=== PATIENT | male | born 1965 | race Hispanic/Latino ===

== ENCOUNTER 2020-07-09 09:52 | Emergency (ER) | payer SELFPAY ==
--- NOTE | ~2020-07-09 | XR_ITS ---
EXAMINATION: XR lumbar spine min 4V DATE: 07/09/2020 11:31 INDICATION: Back pain. Fall. TECHNIQUE: 5 views of the lumbar spine were obtained. COMPARISON: None. FINDINGS: Bone alignment is normal. There is mild anterior wedging of T11 and T12 vertebral bodies, l ikely chronic. There is mildly decreased disc height at T12-L1 and L1-L2. There are endplate osteophy jovanna at all levels. There is multilevel mild facet joint osteoarthritis. IMPRESSION: 1. Mild thoracolumbar spondylosis. Reviewed, dictated and finalized at location A.
[2020-07-09 11:00] VITALS: BP 151/95; PULSE 76; RESP 16; TEMP 36.6; O2SAT 98
[2020-07-09 11:23] LABS: Basophils Absolute Auto 0.1 K/mm3 (0.0-0.1); Basophils Percent Auto 0.7 % (0.2-1.2); Eosinophils Percent Auto 11.6 % (0-4.4); Hemoglobin 15.6 g/dL (14.0-18.0); Immature Granulocyte Absolute 0.04 K/mm3 (0.00-0.031); Immature Granulocyte Percent A 0.5 % (0-0.5); Mean Corpuscular HGB Conc 33.9 g/dl (32-36); Mean Corpuscular Hemoglobin 31.1 pg (26-34); Mean Corpuscular Volume 91.6 fl (80-100); Mean Platelet Volume 9.2 fl (7.4-10.4); Monocytes Absolute Auto 0.5 K/mm3 (0.1-0.6); Neutrophils Absolute Auto 4.8 K/mm3 (1.3-6.7); Neutrophils Percent Auto 57.2 % (45.5-73.1); Platelet Count Result 214 k/mm3 (150-375); Red Blood Count 5.02 M/mm3 (4.6-6.20); Red Cell Distribution Width 11.9 % (11.5-14.5); White Blood Count 8.3 K/mm3 (4.5-10.0)
[2020-07-09 11:25] LABS: Add Urine Microscopic? NO; Appearance Urine Clear (Clear); Bilirubin Urine Negative (Negative); Blood Urine Negative (Negative); Color Urine Yellow (Yellow); Glucose Urine UA Negative (Negative); Ketones Urine Negative (Negative); Leukocyte Esterase Ur Negative LEU/UL (Negative); Nitrate Urine Negative (Negative); Protein Urine Negative (Negative); Specific Grav Ur 1.015 (1.001-1.035); Urobilinogen Urine Negative mg/dL (<2.0)
[2020-07-09 11:34] LABS: Alanine Aminotransferase 39 U/L (4-50); Albumin Level 4.7 g/dL (3.5-5.1); Alkaline Phosphatase 96 U/L (38-126); Anion Gap 10 mmol/L (8-16); Aspartate Amino Transferase 32 U/L (17-59); Blood Urea Nitrogen 12 mg/dL (9-20); Calcium 9.7 mg/dL (8.4-10.2); Carbon Dioxide 25 mmol/L (22-30); Chloride 106 mmol/L (98-107); Estimated Glomerular Filt Rate > 60; Glucose 99 mg/dL (75-110); Potassium 4.2 mmol/L (3.4-5.0); Sodium 141 mmol/L (137-145)
[2020-07-09 11:41] LABS: Amphetamine Screen Urine Negative (Negative); Barbiturate Screen Urine Negative (Negative); Benzodiazepines Screen Urine Negative (Negative); Cannabinoid Screen Urine Negative (Negative); Cocaine Screen Urine Negative (Negative); Methadone Screen Urine Negative (Negative); Opiate Screen Urine Negative (Negative); Phencyclidine Screen Urine Negative (Negative)
--- NOTE | 2020-07-09 12:12 | ED.BACK ---
HPI - Back Pain/Injury General Chief Complaint: Back Pain/Injury Stated Complaint: back pain Time Seen by Provider: 07/09/20 10:33 Source: patient Mode of arrival: ambulatory Limitations: language barrier (Marshallese-speaking, translation line used) History of Present Illness HPI Narrative: Patient presents to the emergency department with chief complaint of wanting checked for diabetes, cholesterol issues and evaluation for his back pain that has been present over months. Patient states he occasionally has tingling in his fingertips and his toes. Patient denies fever, chills, nausea, vomiting, diarrhea, abdominal pain, shortness of breath or chest pain. Patient states he also notes stiffness in his back is on discomfort at times with walking. He denies any saddle paresthesias, loss of bowel or bladder function. Related Data Allergies Allergy/AdvReac Type Severity Reaction Status Date / Time No Known Allergies Allergy Verified 07/09/20 12:05 Review of Systems Review of Systems: Narrative: CONSTITUTIONAL: Denies fever, chills, or sweats. EYES: Denies visual changes, redness, or discharge. ENT: Denies rhinorrhea, congestion, sore throat, or otalgia. CARDIOVASCULAR: Denies chest pain, palpitations, or edema. RESPIRATORY: Denies cough or dyspnea. GASTROINTESTINAL: Denies abdominal pain, nausea, vomiting, or diarrhea. GENITOURINARY: Denies dysuria or hematuria. SKIN: Denies rash or itching. MUSCULOSKELETAL: Reports back pain, denies myalgia, or joint pain NEUROLOGIC: Reports intermittent tingling denies headache, numbness, dizziness, or weakness. PSYCHIATRIC: Denies anxiety or depression. Exam Narrative: Exam Narrative: GENERAL: Well-appearing, well-nourished, and in no acute distress. HEAD: Normocephalic, atraumatic. EYES: PERRLA and EOMI. ENT: Nares clear, no rhinorrhea or epistaxis. Mucous membranes moist. Oropharynx without tonsillar hypertrophy exudate or other lesions. Bilateral TMs pearly allen nonbulging NECK: Supple. No adenopathy or masses. No carotid bruits or JVD CHEST: Clear to auscultation. No respiratory distress. No wheezes rales or rhonchi HEART: Regular rate and rhythm. Present peripheral pulses. BACK: No outward signs of injury. Range of motion intact strength with flexion extension. Patient reports some discomfort with flexion. No bony step-offs palpated. EXTREMITIES: Normal range of motion. No edema. SKIN: Warm, dry, no rash. NEURO: No focal deficits. Alert and oriented x3. PSYCH: Normal mood and affect. Course Vital Signs Vital signs: Vital Signs Temperature 98 F 07/09/20 11:00 Pulse Rate 76 07/09/20 11:00 Respiratory Rate 16 07/09/20 11:00 Blood Pressure 151/95 H 07/09/20 11:00 Pulse Oximetry 98 07/09/20 11:00 Temperature 98 F 07/09/20 11:00 Pulse Rate 76 07/09/20 11:00 Respiratory Rate 16 07/09/20 11:00 Blood Pressure 151/95 H 07/09/20 11:00 Pulse Oximetry 98 07/09/20 11:00 MDM - Back Pain/Injury MDM Narrative Medical decision making narrative: Patient lives in [place] but came to our emergency department because he says that the care is faster. Patient has been informed that his blood glucose levels are normal today. Patient is unable to receive cholesterol testing emergency department. I instructed patient of the importance of following up with her primary care provider. Since he lives in [place] I have instructed him of the importance of following up with a primary care provider for full wellness check. Differential Diagnosis Differential diagnosis: Likely lumbar radiculopathy, sciatica, strain of lumbar region, renal colic, pyelonephritis, thoracic back pain, AAA and discitis Lab Data Result diagrams: 07/09/20 11:16 07/09/20 11:16 Labs: Lab Results 07/09/20 07/09/20 07/09/20 Range/Units 11:16 11:16 11:16 WBC 8.3 (4.5-10.0) K/mm3 RBC 5.02 (4.6-6.20) M/mm3 Hgb 15.6 (14.0-18.0) g/dL Hct 46.0 (42
[2020-07-09 12:35] VITALS: BP 139/91; PULSE 78; RESP 16; O2SAT 98
[2020-07-09] MEDS: KETOROLAC (*BKC) 60 MG/2 ML VIAL 30 MG IM (12:35)
== END 2020-07-09 12:45 | disposition home or self-care (01) ==
PROVIDERS: Physician Assistant; Emergency Provider Emergency Medicine
DX: M47.815 Spondylosis without myelopathy or radiculopathy, thoracolumbar region (principal); G62.9 Polyneuropathy, unspecified
CPT/HCPCS: 36415; 72110; 80053; 80307; 81003; 85025; 96372; 99283; J1885

== ENCOUNTER 2022-10-17 09:47 | Emergency (ER) | payer SELFPAY ==
[2022-10-17] VITALS (11 sets, daily range): BP systolic 123–159; BP diastolic 68–85; PULSE 61–84; RESP 13–20; TEMP 36.6–36.8; O2SAT 93–99
--- NOTE | ~2022-10-17 | US_ITS ---
EXAMINATION: US venous doppler [facility] DATE: 10/17/2022 15:43 INDICATION: Bilateral lower limb swelling TECHNIQUE: Rojas scale images without and with compression and Doppler images of the bilateral lower e xtremity veins were obtained. COMPARISON: None FINDINGS: The right common femoral vein, profunda femoral vein, femoral vein, popliteal vein, peroneal trunk, p osterior tibial veins, and greater saphenous vein are patent. The left common femoral vein, profunda femoral vein, femoral vein, popliteal vein, peroneal trunk, po sterior tibial veins, and greater saphenous vein are patent. IMPRESSION: 1. Patent bilateral lower extremity veins. No evidence of deep venous thrombosis. Reviewed, dictated and finalized at location B. ERS COMPENSATION MANAGER IMPRESSION: 1. Patent bilateral lower extremity veins. No evidence of deep venous thrombosi s.
--- NOTE | ~2022-10-17 | XR_ITS ---
Clinical Indication: Chest pain PA and lateral views of the chest: Comparison: None Findings: The lungs are clear, without evidence of focal consolidation or pleural effusion. Cardiome diastinal silhouette is within normal limits. Bones and soft tissues are unremarkable. Impression: Normal chest. Reviewed, dictated and finalized at [facility] [place]. ERIES SPECIALIST Impression: Normal chest.
--- NOTE | 2022-10-17 09:48 | ECG_ITS ---
Measurements Intervals Rudolph Rate: 76 P: 76 [place]: 163 QRS: 56 QRSD: 97 T: 52 QT: 367 QTc: 413 Interpretive Statements SINUS RHYTHM NORMAL ELECTROCARDIOGRAM NO PREVIOUS ECG AVAILABLE FOR COMPARISON Electronically Signed On 10-17-2022 14:58:29 TODDLER CAREGIVER by Reji Khan M.D.
--- NOTE | 2022-10-17 10:17 | PC.NURSE ---
I documented the EKG but did not obtain it.
[2022-10-17 10:29] LABS: Prothrombin Time 12.5 Seconds (11.1-14.7)
[2022-10-17 10:30] LABS: Partial Thromboplastin Time 26.6 SECONDS (22.3-36.8)
[2022-10-17 10:36] LABS: Alanine Aminotransferase 48 U/L (6-50); Albumin Level 4.8 g/dL (3.5-5.1); Alkaline Phosphatase 108 U/L (38-126); Anion Gap 7 mmol/L (8-16); Aspartate Amino Transferase 32 U/L (17-59); Blood Urea Nitrogen 17 mg/dL (9-20); Calcium 9.1 mg/dL (8.4-10.2); Carbon Dioxide 26 mmol/L (22-30); Chloride 102 mmol/L (98-107); Estimated CRCL calculation 81 ml/min; Estimated Glomerular Filt Rate > 60; Glucose 111 mg/dL (65-110); Lipase 84 U/L (23-300); Potassium 3.7 mmol/L (3.4-5.0); Sodium 135 mmol/L (137-145)
[2022-10-17 10:47] LABS: Troponin I < 0.012 ng/mL (0.000-0.034)
[2022-10-17 10:49] LABS: Basophils Absolute Auto 0.1 K/mm3 (0.0-0.1); Basophils Percent Auto 0.6 % (0.2-1.2); Eosinophils Percent Auto 11.7 % (0-4.4); Hematocrit 45.4 % (42.0-52.0); Hemoglobin 15.2 g/dL (14.0-18.0); Immature Granulocyte Absolute 0.03 K/mm3 (0.00-0.031); Immature Granulocyte Percent A 0.4 % (0-0.5); Lymphocytes Absolute Auto 1.92 K/mm3 (0.9-3.2); Lymphocytes Percent Auto 22.4 % (18.3-44.2); Mean Corpuscular HGB Conc 33.5 g/dl (32-36); Mean Corpuscular Hemoglobin 30.8 pg (26-34); Mean Corpuscular Volume 92.1 fl (80-100); Mean Platelet Volume 9.5 fl (7.4-10.4); Monocytes Absolute Auto 0.5 K/mm3 (0.1-0.6); Neutrophils Absolute Auto 5.1 K/mm3 (1.3-6.7); Neutrophils Percent Auto 58.9 % (45.5-73.1); Platelet Count Result 228 k/mm3 (150-375); Red Blood Count 4.93 M/mm3 (4.6-6.20); White Blood Count 8.6 K/mm3 (4.5-10.0)
[2022-10-17 13:54] LABS: Troponin I < 0.012 ng/mL (0.000-0.034)
--- NOTE | 2022-10-17 16:59 | ED.EXTPRO ---
HPI - Extremity Problem General Chief complaint: Extremity Problem,Nontraumatic Stated complaint: bilateral leg pain Time Seen by Provider: 10/17/22 13:51 History of Present Illness HPI Narrative: Patient is a 56-year-old male who presents ER with bilateral lower extremity itching. Ongoing for 2 weeks. Associated with some mild swelling. Itching occurs from the knees down to the feet. No history of diabetes or neuropathy. He does have a history of [place] in the past year and is currently on Plavix. Denies fevers or chills or sweats. No chest pain or chest pressure. No hemoptysis. Patient has no rash. No change in laundry detergent or soaps. Related Data Allergies Allergy/AdvReac Type Severity Reaction Status Date / Time No Known Allergies Allergy Verified 07/09/20 12:05 Review of Systems Review of Systems: All systems reviewed & are unremarkable except as noted in HPI and below Constitutional: Constitutional: Denies chills, Denies fatigue and Denies fever(s) ENT: Denies nasal congestion and Denies sore throat Cardiovascular: Cardiovascular: Denies chest pain, Denies rapid heart rate and Denies radiating jaw, neck or arm pain Integumentary/Breasts: Skin/Breast: Reports pruritus, Denies erythema and Denies rash Comments: Leg edema Neurologic: Denies focal weakness and Denies numbness Comments: Burning of the legs. PMFSH Past Medical History Medical History (Updated 10/17/22 @ 19:15 by Siva Lux MD) Coronary artery disease Hyperlipidemia Hypertension Surgical History Surgical History (Updated 10/17/22 @ 19:15 by Siva Lux MD) History of percutaneous coronary intervention Exam Narrative: GENERAL: Well-appearing, well-nourished, and in no acute distress. HEAD: Normocephalic, atraumatic. ENT: Mucous membranes moist. CHEST: Clear to auscultation. No respiratory distress. HEART: Regular rate and rhythm. Normal peripheral pulses. ABDOMEN: Soft, nontender, nondistended. EXTREMITIES: Normal range of motion. Trace edema. SKIN: Warm, dry, no rash. NEURO: Alert and oriented x3. PSYCH: Normal mood and affect. Course Course Emergency Course: Patient resting comfortably. Informed of results via interpreter and translator. No acute issue at this time. May have neuropathy but given no diabetes would like him to try a course of steroids given the pruritus and recommend he follow-up with his PCP. Patient verbalized understanding this Vital Signs Vital signs: Vital Signs Temperature 97.8 F 10/17/22 09:53 Pulse Rate 71 10/17/22 09:53 Respiratory Rate 20 10/17/22 09:53 Blood Pressure 145/68 H 10/17/22 09:53 Pulse Oximetry 99 10/17/22 09:53 Oxygen Delivery Room Air 10/17/22 09:53 Temperature 98.3 F 10/17/22 13:15 Pulse Rate 84 10/17/22 18:43 Respiratory Rate 17 10/17/22 18:43 Blood Pressure 123/77 10/17/22 18:43 Pulse Oximetry 99 10/17/22 18:43 Oxygen Delivery Room Air 10/17/22 13:15 MDM - Extremity (Nontraumatic) Lab Data 10/17/22 10:00 10/17/22 10:00 Labs: Lab Results 10/17/22 10/17/22 10/17/22 Range/Units 10:00 10:00 10:00 WBC 8.6 (4.5-10.0) K/mm3 RBC 4.93 (4.6-6.20) M/mm3 Hgb 15.2 (14.0-18.0) g/dL Hct 45.4 (42.0-52.0) % MCV 92.1 (80-100) fl MCH 30.8 (26-34) pg MCHC 33.5 (32-36) g/dl RDW 12.0 (11.5-14.5) % Plt Count 228 (150-375) k/mm3 MPV 9.5 (7.4-10.4) fl Immature Gran % (Auto) 0.4 (0-0.5) % Neut % (Auto) 58.9 (45.5-73.1) % Lymph % (Auto) 22.4 (18.3-44.2) % Mcpherson % (Auto) 6.0 (2.6-8.5) % Eos % (Auto) 11.7 H (0-4.4) % Baso % (Auto) 0.6 (0.2-1.2) % Lymph # (Auto) 1.92 (0.9-3.2) K/mm3 Mcpherson # (Auto) 0.5 (0.1-0.6) K/mm3 Eos # (Auto) 1.0 H (0-0.3) K/mm3 Baso # (Auto) 0.1 (0.0-0.1) K/mm3 Abs Immat Gran (auto) 0.03 (0.00-0.031) K/mm3 Absolute Neuts (auto) 5.1 (1.3-6.7) K/mm3 Absolute Nucleated RBC
[2022-10-17 17:23] LABS: Troponin I < 0.012 ng/mL (0.000-0.034)
== END 2022-10-17 18:44 | disposition home or self-care (01) ==
PROVIDERS: Emergency Provider Emergency Medicine
DX: L29.9 Pruritus, unspecified (principal); I25.10 Atherosclerotic heart disease of native coronary artery without angina pectoris; I10 Essential (primary) hypertension; I25.2 Old myocardial infarction; E78.5 Hyperlipidemia, unspecified; Z79.02 Long term (current) use of antithrombotics/antiplatelets
CPT/HCPCS: 36415; 71046; 80053; 83690; 84484; 85025; 85610; 85730; 93005; 93970; 99284

== ENCOUNTER 2024-09-04 10:50 | Emergency (ER) | payer SELFPAY ==
--- NOTE | ~2024-09-04 | XR_ITS ---
EXAMINATION: XR foot RT 2V DATE: 09/04/2024 11:44 INDICATION: Gout. TECHNIQUE: 2 views of right foot were obtained. COMPARISON: None. FINDINGS: Alignment is normal. No fracture. There is mild osteoarthritis of first metatarsophalangeal joint and some of the midfoot joints. There are enthesophytes at the posterior and plantar aspects o f calcaneal tuberosity. IMPRESSION: 1. No specific evidence of gout. 2. Mild polyarticular osteoarthritis. Reviewed, dictated and finalized at location A. TRUCKER
[2024-09-04 11:03] VITALS: BP 162/83; PULSE 109; RESP 16; TEMP 36.4; O2SAT 99
[2024-09-04] MEDS: predniSONE 20 MG TABLET 60 MG PO (11:48)
[2024-09-04] MEDS: ACETAMINOPHEN 500 MG TABLET 1000 MG PO (11:49)
[2024-09-04] MEDS: KETOROLAC 30 MG/ML VIAL (*BKC) IM (11:49)
--- NOTE | 2024-09-04 21:52 | ED.LOWEXIN ---
HPI - Extremity Injury (Lower) General Chief Complaint: Extremity Injury, Lower Stated Complaint: pain R leg Time Seen by Provider: 09/04/24 11:18 History of Present Illness HPI Narrative: 58-year-old primarily [place] Citizen-speaking male presenting to the emergency depart for evaluation of right foot pain. Patient states he has a history of gout, arthritis and he has worsening pain in the morning that gets progressively worse throughout the day with use. He states it feels very similar to his previous gout attack which he had several years ago. Does not take any medications or prophylactic medications, his previous gout flare resolved without intervention. He is complaining of right foot pain for last 10-15 days, no swelling in the digits, no restricted range of motion, some warmth to the area around the right lower extremity near the ankle but no overlying skin changes such as cellulitis. Translation services were used throughout the interpretation both during initial encounter and during discharge. Related Data Allergies Allergy/AdvReac Type Severity Reaction Status Date / Time No Known Allergies Allergy Verified 09/04/24 11:12 Review of Systems Review of Systems: [facility] Past Medical History Medical History Coronary artery disease Hyperlipidemia Hypertension Surgical History Surgical History History of percutaneous coronary intervention Exam Narrative: GENERAL: [Well-appearing, well-nourished, and in no acute distress.] HEAD: [Normocephalic, atraumatic.] EYES: [PERRLA and EOMI.] ENT: Nares clear, no rhinorrhea or epistaxis. Mucous membranes moist. NECK: Supple. CHEST: [Clear to auscultation. No respiratory distress.] HEART: [Regular rate and rhythm]. No murmur heard. [Normal peripheral pulses.] ABDOMEN: [Soft, nondistended], [nontender], [No rigidity or guarding] EXTREMITIES: Some tenderness and warmth over the right lower extremity near the medial malleolus and metatarsophalangeal joints of the 1st and 2nd digit. No overlying skin changes, no cellulitis, no restricted range of motion. No crepitus or significant pain with palpation. SKIN: Warm, dry, no rash. NEURO: [No focal deficits]. Alert and oriented [x3.] PSYCH: [Normal mood and affect.] Course Vital Signs Vital signs: Vital Signs Temperature 36.4 C 09/04/24 11:03 Pulse Rate 109 H 09/04/24 11:03 Respiratory Rate 16 09/04/24 11:03 Blood Pressure 162/83 H 09/04/24 11:03 Pulse Oximetry 99 09/04/24 11:03 Oxygen Delivery Room Air 09/04/24 11:03 Temperature 36.4 C 09/04/24 11:03 Pulse Rate 109 H 09/04/24 11:03 Respiratory Rate 16 09/04/24 11:03 Blood Pressure 162/83 H 09/04/24 11:03 Pulse Oximetry 99 09/04/24 11:03 Oxygen Delivery Room Air 09/04/24 11:03 MDM - Extremity Injury (Lower) MDM Narrative Medical decision making narrative: 58-year-old male with history of gout presenting to the emergency department for evaluation of right foot pain. He has some pain and tenderness over the medial malleolus and metatarsophalangeal joints of the 1st and 2nd digit. Some redness and warmth but no overlying skin changes consistent with cellulitis. No significant tenderness with palpation. Patient's tells me this feels very similar to his previous gout flare that did not requiring treatments before. Does not take any medications presently. Was otherwise in his normal state of health. X-ray was obtained and he was given intramuscular Toradol, oral prednisone and Tylenol. Patient was re-evaluated had significant improvement in his pain. 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 Given patient's clinical improvement and improvement in pain I believe he can be safely discharged home at this time. He was given a prednisone burst for the next several days and instructed to follow-up with his regular primary care provider or return with any new or worsening concerns. Medical Records Attestation: I reviewed the patient's medical records. Lab Data Attestation: I reviewed the patient's lab results. Imaging Data Attestation: I personally reviewed and interpreted this imaging study as follows: My impression: Impressions Foot X-Ray 09/04/24 11:45 IMPRESSION: 1. No specific evidence of gout. 2. Mild polyarticular osteoarthritis. Discharge Plan Discharge Clinical Impression: Polyarticular arthritis, Gout, Foot pain, right Patient Disposition: Home, Self-Care Condition: Stable Instructions: Antibiotic Form, Gout (ED), Arthritis (ED) Additional Instructions: steroids and nsaids for pain. return with any new or worsening concerns otherwise follow-up with regular primary care provider on outpatient basis. Patient Language: [place] Citizen Prescriptions: New prednisone 50 mg tablet 50 mg PO DAILY 5 Days Qty: 5 0RF naproxen 500 mg tablet 500 mg PO BID PRN (Reason: pain) Qty: 20 0RF No Action prednisone 50 mg tablet 50 mg PO DAILY Qty: 7 0RF naproxen 500 mg tablet 500 mg PO BID PRN (Reason: pain) Qty: 20 0RF Follow-up/Referrals: PHYSICIAN,FAMILY PRACTICE NURSE PRACTITIONER [Primary Care Provider] - Time of Disposition: 12:37
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
--- OUTSIDE RECORDS SUMMARY | 2024-09-11 14:01 | XMS_ITS | Referral Summary ---
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 This disclosure is being madepursuant to the Care Everywhere program and may not contain all information available regarding this patient. 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 No 12/07/2021 Is person blind or have serious difficulty seein g? No 12/07/2021 Does person have serious dif ficulty walking/climbing stairs? No 12/07/2021 Does person have difficulty dressing/bathing? No 12/07/2021 Does person have difficulty doing errands alone? No 12/07/2021 Cognitive Status Response Date of Assessm ent Does person have difficulty concentrating/remembering/making decisions? No 12/07/2021 Plan of Treatment Not on file Medical Devices Implanted Type Area K 9 [employer] Device Identifier Shelf Expiration Date Model / Serial / Lot Sys Cor Stent Xienceskpt 3.50mm 15mm Rap Implanted:Qty: 1 on 12/09/2021 by Olman Matthews MD at [facility] Coronary Stent Left: Heart [employer] 12/19/2022 [id number] Description:Mid Lad. Procedures Procedure Name Priority Date/Time Associated Diagnosis Comments COMPREHENSIVE METABOLIC PANEL STAT 01/21/2022 11:10 PM CDT from Last 3 Months or Most Recently Relevant to Health Maintenance Results * (ABNORMAL) COMPREHENSIVE METABOLIC PANEL (01/21/2022 11:10 PM CDT) BUN 26 7 - 26 mg/dL 01/21/2022 11:48 PM CDT [facility] Creatinine 1.11 0.71 - 1.16 mg/dL 01/21/2022 11:48 PM CDT [facility] Sodium 140 136 - 145 mmol/L 01/21/2022 11:48 PM CDT [facility] Potassium 3.4(L) 3.5 - 4.5 mmol/L 01/21/2022 11:48 PM CDT [facility] Chloride 104 98 - 107 mmol/L 01/21/2022 11:48 PM CDT [facility] CO2 21(L) 22 - 29 mmol/L 01/21/2022 11:48 PM [facility] Glucose 119(H) 70 - 115 mg/dL 01/21/2022 11:48 PM [facility] Calcium 9.0 8.4 - 10.2 mg/dL 01/21/2022 11:48 PM [facility] Protein Total 7.8 6.0 - 8.3 g/dL 01/21/2022 11:48 PM [facility] Albumin 4.0 3.4 - 5.0 g/dL 01/21/2022 11:48 PM [facility] Bilirubin Total 0.6 0.2 - 1.2 mg/dL 01/21/2022 11:48 PM [facility] Alkaline Phosphatase 190(H) 40 - 150 U/L 01/21/2022 11:48 PM [facility] ALT 68(H) 5 - 55 U/L 01/21/2022 11:48 PM [facility] AST 35(H) 5 - 34 U/L 01/21/2022 11:48 PM [facility] Anion Gap 18 8 - 18 01/21/2022 11:48 PM [facility] BUN/Creatinine Ratio 23 7 - 23 01/21/2022 11:48 PM [facility] Osmolality Calculated 296 270 - 300 mOsm/kg 01/21/2022 11:48 PM [facility] Albumin/Globulin Ratio 1.1 1.1 - 2.3 01/21/2022 11:48 PM [facility] eGFR by CKD-EPI 78(L) >=90 mL/min/1.7 3 m2 01/21/2022 11:48 PM [facility] Blood BLOOD SPECIMEN / Unknown Venipuncture / Unknown 01/21/2022 11:10 PM T 01/21/2022 11:17 PM [facility] Mihir Davalos PA-C LAB - CHEMISTRY [facility] [address] [place] [address], [facility] [phone] from Last 3 Months or Most Recently Relevant to Health Maintenance Advance Directives * Full Code (Latest Code Status on File) Date Activated Date Inactivated Comments 12/07/2021 2:19 PM 12/10/2021 6:03 PM
--- OUTSIDE RECORDS SUMMARY | 2024-09-11 14:01 | XMS_ITS | Encounter Summary ---
Author Organization [facility] Address [address] [place] [address] Care Team Providers Care Camp Head Counselor Name Role Phone Unavailable Primary Care Provider Unavailabl e Reason for Visit * Reason Comments Palpitations Pt presents to ED wi th chest pain, and chills. Pt recently had a stent placed. Denies any other family members with illness. Pt has left sided chest pain and he feels like his BP is elevated. Encounter Details Date Type Department Care Team (Late st Contact Info) Description 01/22/2022 1:00 AM CDT - 01/22/2022 4:29 AM T Emergency [facility] EMERGENCY DEPARTMENT [address] [place] [address] Reinaldo Sylvester MD [address] [place] [address] Chest pain, unspecified type; Palpitations; Hypokalemia Discharge Disposition: Home or Self Care Social History Tobacco Use Types Packs/Day Years Used Date Smoking Tobacco: Never Smokeless Tobacco: Never Alcohol Use Standard Drinks/Week Comments Yes 5.8 [...] on file Sexual Orientation Not on file documented as of this encounter Last Filed Vital Signs Vital Sign Reading Time Taken Comments Blood Pressure 169/85 01/21/2022 10:47 PM CDT Pulse 108 01/21/2022 10:47 PM CDT Temperature 36.6 ??C (97.8 ??F) 01/21/2022 10:47 PM C DT Respiratory Rate 18 01/21/2022 10:47 PM CDT Oxygen Saturation 98% 01/21/2022 10:47 PM CDT Inhaled Oxygen Concentration - - Weight 102.1 kg (225 lb) 01/21/2022 10:47 PM CDT Height 167.6 cm (5' 6 ) 01/21/2022 10:47 PM CDT Body Mass Index 36.32 01/21/2022 10:47 PM CDT documented in this encounter Functional Status Functional Status Response Date of [...] person have difficulty concentrating/remembering/making decisions? No 12/07/2021 documented as of this encounter Discharge Instructions * Attachments The following attachments cannot be sent through Care Everywhere. * Chest Pain (AfterCare(R) Instructions(ER/ED)) (Panamanian) documented in this encounter Medications at Time of Discharge Medication Sig Dispensed Refills Start Date End Date acetaminophen (TYLENOL) 325 MG tablet Take 1 (one) tablet by mouth every 6 hours as needed Maximum allowable Acetaminophen amount = 4 Grams (4000 mg) / 24 hours. 12/10/2021 aspirin (ASPIRIN) 81 MG chew tablet Take 1 (one) tablet by mouth once daily 30 tablet 3 12/11/2021 ATORVASTATIN CALCIUM PO HYDROcodone-acetamin ophen (NORCO) 5-325 MG tablet Take 1 (one) tablet by mouth every 6 hours as needed for Pain 10 tablet 12/15/2021 lisinopril-hydroCHLO ROthiazide (Prinzide; Zestoretic) 10-12.5 MG tablet Take 1 (one) tablet by mouth once daily 11/29/2021 nitroGLYCERIN (NITROSTAT) 0.4 MG tablet Dissolve 1 (one) tablet under the tongue every 5 minutes as needed for Angina (Chest pain) 10 tablet 3 12/10/2021 omeprazole (PRILOSEC) 10 MG capsule Take by mouth daily before breakfast amLODIPine (NORVASC) 10 MG tabletIndications:Hy pertension Take 1 (one) tablet by mouth once daily Reasons: High Blood Pressure Disorder 30 tablet 04/30/2021 07/18/2022 clopidogrel (PLAVIX) 75 MG tablet Take 1 (one) tablet by mouth once daily 30 tablet 5 01/22/2022 07/21/2022 lisinopril (PRINIVIL; ZESTRIL) 20 MG tablet Take by mouth once daily 07/18/2022 metoprolol succinate XL 24hr (TOPROL XL) 25 MG tablet Take 1 (one) tablet by mouth once daily 30 tablet 3 01/22/2022 07/18/2022 documented as of this encounter ED Notes * Meliza Ron RN - 01/22/2022 4:27 AM CDT Discharge instructions reviewed with patient. Patient verbalized understanding and denies any questions at this time. Patient ambulated out of the ED with steady gait and all belongings. * Reinaldo Sylvester MD - 01/22/2022 1:04 AM CDT Emergency Medicine Attending Note Interval History : Chief Complaint Patient presents with ??? Palpitations Pt presents to ED with chest pain, and chills. Pt recently had a stent placed. Denies any other family members with illness. Pt has left sided chest pain and he feels like his BP is elevated. Michael Grey is a 56 year old male with HTN, HLD, NSTEMI s/p proximal LAD PCI 12/10/2021 GERD [facility] who presents to the ED for evaluation of chest pain that began approximately 4 hours prior to arrival. The patient describes his symptoms as chest pressure, presyncope, felt that his blood p ressure was elevated. The pain was on the left side, stabbing, 3/10 but pain has now gone away. Symptoms began at rest. Symptoms are improved with time and worsened with nothing. Associated symptoms include as above. Patient has never had these symptoms before. Patient denies SOB, Back pain, Abd pain, N/V had these symptoms before. Patient is unsure is similar to his pain with prior NSTEMI. Past Medical History: Diagnosis Date ??? GERD (gastroesophageal reflux disease) ??? HTN (hypertension) ??? Hyperlipidemia No past surgical history on file. Social History Socioeconomic History ??? Marital status: Single Spouse name: Not on file ??? Number of children: Not on file ??? Years of education: Not on file ??? Highest education level: Not on file Occupational History ??? Not on file Tobacco Use ??? Smoking status: Never Smoker ??? Smokeless tobacco: Never Used Vaping Use ??? Vaping Use: Never used Substance and Sexual Activity ??? Alcohol use: Yes Alcohol/week: 5.8 standard drinks Comment: 1 beer daily ??? Drug use: No ??? Sexual activity: Not on file Other Topics Concern ??? Not on file Social History Narrative Merged History Encounter Social Determinants of Health Financial Resource Strain: Not on file Food Insecurity: Not on file Transportation Needs: Not on file Physical Activity: Not on file Stress: Not on file Social Connections: Not on file Intimate Partner Violence: Not on file Housing Stability: Not on file No Known Allergies Review of Systems: (+) positive Review of Systems Constitutional: Negative for chills, diaphoresis and fever. HENT: Negative for congestion and nosebleeds. Eyes: Negative for photophobia and pain. Respiratory: Negative for cough, hemoptysis, sputum production, shortness of breath, wheezing and stridor. Cardiovascular: Positive for chest pain and palpitations. Negative for orthopnea and leg swelling. Gastrointestinal: Negative for abdominal pain, constipation, diarrhea, nausea and vomiting. Genitourinary: Negative for dysuria and frequency. Musculoskeletal: Negative for back pain and myalgias. Skin: Negative for rash. Neurological: Positive for dizziness. Negative for sensory change, focal weakness, loss of consciousness, weakness and headaches. Physical Exam Vitals: 01/21/22 2247 BP: 169/85 Pulse: 108 Resp: 18 Temp: 97.8 ??F (36.6 ??C) SpO2: 98% Weight: 102.1 kg (225 lb) Height: 1.676 m (5' 6 ) Physical Exam Constitutional: General: He is not in acute distress. Appearance: He is not ill-appearing, toxic-appearing or diaphoretic. HENT: Head: Normocephalic and atraumatic. Nose: Nose normal. Mouth/Throat: Mouth: Mucous membranes are moist. Pharynx: Oropharynx is clear. Eyes: Pupils: Pupils are equal, round, and reactive to light. Cardiovascular: Rate and Rhythm: Regular rhythm. Tachycardia present. Pulses: Normal pulses. Pulmonary: Effort: Pulmonary effort is normal. No respiratory distress. Breath sounds: Normal breath sounds. Abdominal: General: Abdomen is flat. Bowel sounds are normal. There is no distension. Palpations: Abdomen is soft. Tenderness: There is no abdominal tenderness. There is no guarding. Musculoskeletal: General: No tenderness. Normal range of motion. Cervical back: Normal range of motion and neck supple. Skin: General: Skin is warm and dry. Neurological: General: No focal deficit present. Mental Status: He is alert and oriented to person, place, and time. Mental status is at baseline. Psychiatric: Mood and Affect: Mood normal. Behavior: Behavior normal. Medical Decision Making: Problem List: 1. Chest Pain - Ddx: ACS vs MSK pain vs PNA vs PTX vs other - PLAN: Labwork, EKG, CXR, ASA see below for further orders/plan. Orders Placed This Encounter ??? XR CHEST PA AND LATERAL ??? CBC W AUTO DIFFERENTIAL ??? COMPREHENSIVE METABOLIC PANEL ??? TROPONIN I ??? TROPONIN I ??? EKG 12-LEAD ??? aspirin tablet 325 mg ??? nitroGLYCERIN (Nitrostat) tablet 0.4 mg Data Review: (All Labs/Imaging/ECG, other diagnostics independently interpreted by me.) - MONITORING: The patient's Display Carver Rhythm was interpreted by me. The parts control clerk showed Sinus tachycardia. The patient's Oxygen Saturation Monitor was interpreted by me. The reading was 98%. The patient wason room air at the time of the reading. This is interpreted as normal. - ECG: Interpreted by me: Date: 01/22/22 Time: 2258 R&R: Sinus tachycardia with a ventricular rate of 104 bpm Additional findings: No change from EKG performed 12/14/2021 - LABS: Labs Reviewed CBC W AUTO DIFFERENTIAL - Abnormal; Notable for the following components: Result Value WBC 12.2 (*) RBC 3.97 (*) MPV 9.0 (*) Eosinophils % 8.1 (*) Neutrophils Absolute 7.4 (*) Eosinophils Absolute 0.99 (*) All other components within normal limits COMPREHENSIVE METABOLIC PANEL - Abnormal; Notable for the following components: Potassium 3.4 (*) CO2 21 (*) Glucose 119 (*) Alkaline Phosphatase 190 (*) ALT 68 (*) AST 35 (*) eGFR by CKD-EPI 78 (*) All other components within normal limits TROPONIN I - Normal TROPONIN I - IMAGING: XR CHEST PA AND LATERAL (Results Pending) No results found. - MEDS: Medications aspirin tablet 325 mg (has no administration in time range) nitroGLYCERIN (Nitrostat) tablet 0.4 mg (has no administration in time range) ED COURSE 2320: Reviewed labwork, EKG, CXR. EKG unchanged from prior, Labwork shows no abnormalities concerning for acute cardiac event. CXR does not show acute pulmonary process. Will check repeat troponin aschest pain began 3 hours ago. 0158: Repeat troponin in not elevated. Patient's pain hs improved without intervention. Patient with recent Cardiac cath showing severe LAD disease s/p stenting, other coronary arteries without severe disease. I have low suspicion for stent occlusion as symptoms have resolved and patient reports medication compliance, will discharge patient with outpatient follow up. DISCHARGE I have given the patient instructions regarding their diagnosis, expectations, follow up, and return precautions. I explained to the patient that emergent conditions may arise that are not yet detectable on exam or testing, and to return to the ER for new, worsening, or any persistent conditions. I've explained the importance of following up with the patient's doctor (or the referral physician) as instructed. The patient verbalized understanding of the discharge instructions and has no further questions at discharge. I also personally reviewed the patient's discharge instructions including discussion of their diagnosis, follow-up information, Medications, etc. All questions answered regarding discharge paperwork. This patient was evaluated during the COVID-19 pandemic. Orders and Medicine administered during this encounter: Orders Placed This Encounter ??? XR CHEST PA AND LATERAL ??? CBC W AUTO DIFFERENTIAL ??? COMPREHENSIVE METABOLIC PANEL ??? TROPONIN I ??? TROPONIN I ??? EKG 12-LEAD ??? aspirin tablet 325 mg ??? nitroGLYCERIN (Nitrostat) tablet 0.4 mg Medications aspirin tablet 325 mg (has no administration in time range) nitroGLYCERIN (Nitrostat) tablet 0.4 mg (has no administration in time range) Clinical Impression: 1. Chest pain, unspecified type Disposition: Discharge I, Dr. Sylvester, personally performed the services described in this documentation. All medical record entries made by the scribe were at my direction and in my presence. I have reviewed the chart and agree that the record reflects my personal performance and is accurate and complete. * Jill Gaspar RN - 01/22/2022 1:00 AM CDT Bed: 21 Expected date: Expected time: Means of arrival: Comments: Sae Ware documented in this encounter Plan of Treatment Not on file documented as of this encounter Procedures Procedure Name Priority Date/Time Associated Diagnosis Comments CARDIAC EKG ORDER 01/23/2022 11: 36 AM CDT TROPONIN I Timed 01/22/2022 1:58 AM CDT XR CHEST 2VW STAT 01/21/2022 11:21 PM CDT Chest pain, unspecified type TROPONIN I STAT 01/21/2022 11:10 PM CDT CBC W AUTO DIFFERENTIAL STAT 01/21/2022 11:10 PM CDT COMPREHENSIVE METABOLIC PANEL STAT 01/21/2022 11:10 PM CDT EKG 12-LEAD Routine 01/21/2022 10:59 PM CDT Chest pain, unspecified type documented in this encounter Results * CARDIAC EKG ORDER (01/23/2022 11:36 AM CDT) Narrative 01/23/2022 11:36 AM CDT Ordered by an unspecified provider. Scanned Document CARDIAC SERVICES ORD ERABLES * TROPONIN I (01/22/2022 1:58 AM CDT) Troponin I <0.010 <0.032 ng/mL 01/22/2022 2:44 AM CDT [facility] Blood BLOOD SPECIMEN / Unknown Venipuncture / Unknown 01/22/2022 1:58 AM CDT 01/22/2022 2:01 AM CDT Mihir Davalos PA-C LAB - CHEMISTRY ORDE JUAQUIN [address] [address], [facility] [phone] * XR CHEST PA AND LATERAL (01/21/2022 11:21 PM CDT) Anatomical Region Laterality Modality Chest Radiographic Vickie ging 01/22/2022 9:25 AM CDT Impressions 01/22/2022 11:53 AM CDT IMPRESSION: 1.No acute pulmonary process is seen. Report drafted by Juarez Sharpe M.D. (resident) This report was approved ??by Juarez Sharpe ?? on 01/22/2022 10:09 AM . I, Dr. Dr. TAYLOR LANTIGUA MD have personally reviewed and interpreted this examination/study. This report was electronically signed by Dr. TAYLOR LANTIGUA MD ??on 01/22/2022 11:53 AM . Narrative 01/22/2022 11:53 AM CDT EXAMINATION: XR CHEST 2VW HISTORY: R07.9: Chest pain, unspecified type COMPARISON: Chest X-ray 12/07/2021. FINDINGS: No focal consolidation, pleural effusion, or pneumothorax is seen. The cardiomediastinal silhouette is normal. No acute fractures are seen. Procedure Note Taylor Lantigua MD - 01/22/2022 EXAMINATION: XR CHEST 2VW HISTORY: R07.9: Chest pain, unspecified type COMPARISON: Chest X-ray 12/07/2021. FINDINGS: No focal consolidation, pleural effusion, or pneumothorax is seen. The cardiomediastinal silhouette is normal. No acute fractures are seen. IMPRESSION: 1.No acute pulmonary process is seen. Report drafted by Juarez Sharpe M.D. (resident) This report was approved by Juarez Sharpe on 0:09 AM . I, Dr. Dr. TAYLOR LANTIGUA MD have personally reviewed and interpretedthis examination/study. This report was electronically signed by Dr. TAYLOR LANTIGUA MD on 01/22/2022 11:53 AM . Mihir Davalos PA-C DIAGNOSTIC IMAGING O RDERABLES * TROPONIN I (01/21/2022 11:10 PM CDT) [facility] Troponin I <0.010 <0.032 ng/mL 01/21/2022 11:[address] [facility] Blood BLOOD SPECIMEN / Unknown Venipuncture / Unknown 01/21/2022 11:10 PM CDT 01/21/2022 11:17 PM CDT Mihir Davalos PA-C LAB - CHEMISTRY [facility]ER RE[facility] Organization Address City/State/ZIP Co de Phone Number [address] [address], [facility] [phone] * (ABNORMAL) COMPREHENSIVE METABOLIC PANEL (01/21/2022 11:10 PM CDT) Pathologist [facility] BUN 26 7 - 26 mg/dL 01/21/2022 11:48 PM [facility] Creatinine 1.11 0.71 - 1.16 mg/dL 01/21/2022 11:48 PM [facility] Sodium 140 136 - 145 mmol/L 01/21/2022 11:48 PM [facility] Potassium 3.4(L) 3.5 - 4.5 mmol/L 01/21/2022 11:48 PM [facility] Chloride 104 98 - 107 mmol/L 01/21/2022 11:48 PM [facility] CO2 21(L) 22 - 29 mmol/L 01/21/2022 11:48 PM [facility] Glucose 119(H) 70 - 115 mg/dL 01/21/2022 11:48 PM [facility] Calcium 9.0 8.4 - 10.2 mg/dL 01/21/2022 11:48 PM [facility] Protein Total 7.8 6.0 - 8.3 g/dL 01/21/2022 11:48 PM [facility] Albumin 4.0 3.4 - 5.0 g/dL 01/21/2022 11:48 PM [facility] Bilirubin Total 0.6 0.2 - 1.2 mg/dL 01/21/2022 11:48 PM [facility] Alkaline Phosphatase 190(H) 40 - 150 U/L 01/21/2022 11:48 PM [facility] ALT 68(H) 5 - 55 U/L 01/21/2022 11:48 PM [facility] AST 35(H) 5 - 34 U/L 01/21/2022 11:48 PM [facility] Anion Gap 18 8 - 18 01/21/2022 11:48 PM [facility] BUN/Creatinine Ratio 23 7 - 23 01/21/2022 11:48 PM [facility] Osmolality Calculated 296 270 - 300 mOsm/kg 01/21/2022 11:48 PM [facility] Albumin/Globulin Ratio 1.1 1.1 - 2.3 01/21/2022 11:48 PM [facility] eGFR by CKD-EPI 78(L) >=90 mL/min/1.7 3 m2 01/21/2022 11:48 PM [facility] Blood BLOOD SPECIMEN / Unknown Venipuncture / Unknown 01/21/2022 11:10 PM CDT 01/21/2022 11:17 PM CDT Mihir Davalos PA-C LAB - CHEMISTRY ASHER RE[facility] [address] [place] [address], [facility] [phone] * (ABNORMAL) CBC W AUTO DIFFERENTIAL (01/21/2022 11:10 PM CDT) WBC 12.2(H) 3.5 - 10.5 10? 3 /uL 01/21/2022 11:26 PM [facility] RBC 3.97(L) 4.30 - 5.70 10? 6 /uL 01/21/2022 11:26 PM [facility] Hemoglobin 12.3 12.0 - 17.6 g/dL 01/21/2022 11:26 PM [facility] Hematocrit 35.7 35.2 - 51.7 % 01/21/2022 11:26 PM [facility] MCV 89.9 80.7 - 98.3 fL 01/21/2022 11:26 PM [facility] MCH 31.0 26.7 - 34.0 pg 01/21/2022 11:26 PM [facility] MCHC 34.5 30.8 - 35.9 g/dL 01/21/2022 11:26 PM [facility] Platelet Count 231 150 - 400 10? 3 /uL 01/21/2022 11:26 PM [facility] RDW-SD 39.9 36.0 - 50.0 fL 01/21/2022 11:26 PM [facility] RDW-CV 12.1 11.2 - 14.8 % 01/21/2022 11:26 PM [facility] MPV 9.0(L) 9.4 - 12.9 fL 01/21/2022 11:26 PM [facility] nRBC Absolute 0.00 0 10? 3 /uL 01/21/2022 11:26 PM [facility] nRBC Auto 0.0 0 /100 WBC 01/21/2022 11:26 PM [facility] Neutrophils % 60.7 35.0 - 70.0 % 01/21/2022 11:26 PM [facility] Lymphocytes % 23.6 20.0 - 43.0 % 01/21/2022 11:26 PM [facility] Monocytes % 6.7 5.0 - 13.0 % 01/21/2022 11:26 PM [facility] Eosinophils % 8.1(H) 0.0 - 6.0 % 01/21/2022 11:26 PM [facility] Basophil % 0.5 0.0 - 2.0 % 01/21/2022 11:26 PM [facility] Neutrophils Absolute 7.4(H) 1.6 - 7.0 10? 3 /uL 01/21/2022 11:26 PM [facility] Lymphocyte Absolute 2.9 1.1 - 3.9 10? 3 /uL 01/21/2022 11:26 PM [facility] Monocytes Absolute 0.82 0.26 - 1.07 10? 3 /uL 01/21/2022 11:26 PM [facility] Eosinophils Absolute 0.99(H) 0.00 - 0.47 10? 3 /uL 01/21/2022 11:26 PM [facility] Basophils Absolute 0.06 0.00 - 0.08 10? 3 /uL 01/21/2022 11:26 PM [facility] Immature Granulocytes % 0.4 0.0 - 1.0 % 01/21/2022 11:26 PM [facility] Immature Granulocytes Absolute 0.05 01/21/2022 11:26 PM [facility] Blood BLOOD SPECIMEN / Unknown Venipuncture / Unknown 01/21/2022 11:10 PM CDT 01/21/2022 11:17 PM CDT Mihir Davalos PA-C LAB - HEMATOLOGY ORD ERABLES [facility] [address] [place] [address], [facility] [phone] * EKG 12-LEAD (01/21/2022 10:59 PM CDT) Ventricular Rate 104 BPM [facility] MUSE Atrial Rate 104 BPM [facility] MUSE P-R Interval 158 ms [facility] MUSE QRS Duration ms 88 ms H MUSE Q-T Interval ms 342 ms [facility] MUSE QTC Calculation (Bezet) 449 ms [facility] MUSE Calculated P [place] 65 degrees [facility] MUSE Calculated R [place] 49 degrees [facility] MUSE Calculated T [place] 46 degrees [facility] MUSE Interpretation EKG SINUS TACHYCARDIA OTHERWISE NORMAL ECG WHEN COMPARED WITH ECG OF 10-DEC-2021 10:33, VENT. RATE HAS INCREASED BY ??34 BPM Confirmed by Kenyon Paula ([id number]) on 01/23/2022 7:35:51 PM [facility] MUSE 01/21/2022 10:5 9 PM CDT 01/23/2022 7:35 PM CDT Mihir Davalos PA-C ECG ORDERABLES [facility] documented in this encounter Visit Diagnoses Diagnosis Chest pain, unspecified type Palpitations Hypokalemia Hypopotassemia documented in this encounter Administered Medications Inactive Administered Medications - up to 3 most recent administrations Medication Order [facility] Action Action Date Dose Rate Site aspirin tablet 325 mg 325 mg, Oral, NOW, 1 dose, On Thu01/21/22 at 2300 $ Given 01/22/2022 1:08 AM CDT 325 mg magnesium oxide (Mag-Ox) tablet 400 mg 400 mg, Oral, NOW, 1 dose, On Thu01/22/22 at 0300 $ Given 01/22/2022 3:08 AM CDT 400 mg nitroGLYCERIN (Nitrostat) tablet 0.4 mg 0.4 mg, Sublingual, EVERY 5 MIN PRN, Angina, Starting on Thu01/21/22 at 2259, Until Thu01/22/22 at 0529, Every 5 minutes as needed, may repeat up to 3 doses potassium chloride (Klor-Con) packet 40 mEq 40 mEq, Oral, ONCE, 1 dose, On Thu01/22/22 at 0315, DISSOLVE IN 120 ML OF COLD WATER OR JUICE AND DRINK SLOWLY $ Given 01/22/2022 3:08 AM CDT 40 mEq documented in this encounter Active and Recently Administered Medications Times are shown in CDT. Scheduled Medication Order 01/20/2022 01/21/2022 01/22/2022 aspirin tablet 325 mg (COMPLETED) 325 mg, Oral, NOW, 1 dose, On Thu01/21/22 at 2300 0108 ($ Given - Prov ider: Meliza Ron RN) magnesium oxide (Mag-Ox) tablet 400 mg (COMPLETED) 400 mg, Oral, NOW, 1 dose, On Thu01/22/22 at 0300 0308 ($ Given - Prov ider: Meliza Ron RN) potassium chloride (Klor-Con) packet 40 mEq (COMPLETED) 40 mEq, Oral, ONCE, 1 dose, On Thu01/22/22 at 0315, DISSOLVE IN 120 ML OF COLD WATER OR JUICE AND DRINK SLOWLY 0308 ($ Given - Prov ider: Meliza Ron RN) PRN Medication Order 01/20/2022 01/21/2022 01/22/2022 nitroGLYCERIN (Nitrostat) tablet 0.4 mg 0.4 mg, Sublingual, EVERY 5 MIN PRN, Angina, Starting on Thu01/21/22 at 2259, Until Thu01/22/22 at 0529, Every 5 minutes as needed, may repeat up to 3 doses documented in this encounter
--- OUTSIDE RECORDS SUMMARY | 2024-09-11 14:01 | XMS_ITS | Encounter Summary ---
Author Organization [facility] Address [address] [place] [address] Care Team Providers Care Dental [employer]alg[employer] Processor Name Role Phone Unavailable Primary Care Provider Unavailabl e Reason for Visit * Reason Comments Swelling Hand Patient azeri katherine cruz primarily, here for R hand swelling, R hand grossly swollen, reports limited movement, denies any injury to hand. Pt had coronary angiogram and pci of prox LAD last week here at [facility]. [facility] intact Encounter Details Date Type Department Care Team (Late st Contact Info) Description 12/15/2021 2:27 AM CDT - 12/15/2021 9:43 AM CDT Emergency [facility] EMERGENCY DEPARTMENT [address] [place] [address] [phone] Miguel Jang MD [address] [place] [address] [place] [phone] Helena Horton MD [address] [place] [address] [place] [phone] Pain of right hand; Swelling of right hand Discharge Disposition: Home or Self Care Social [...] Sign Reading Time Taken Comments Blood Pressure 128/80 12/15/2021 9:15 AM CDT Pulse 64 12/15/2021 9:15 AM CDT Temperature 36.2 ??C (97.2 ??F) 12/15/2021 1:48 AM CD T Respiratory Rate 16 12/15/2021 9:15 AM CDT Oxygen Saturation 97% 12/15/2021 9:15 AM CDT Inhaled Oxygen Concentration - - Weight 93.9 kg (207 lb) 12/15/2021 1:48 AM CDT Height 152.4 cm (5') 12/15/2021 1:48 AM CDT Body Mass Index 40.43 12/15/2021 1:48 AM CDT documented in this encounter Functional Status [...] cannot be sent through Care Everywhere. * Splint Care (Discharge Care) (Bulgarian) documented in this encounter Medications at Time [...] Blood Pressure Disorder 30 tablet 04/30/2021 07/18/2022 amoxicillin-clavulan ate (AUGMENTIN) 875-125 MG tablet Take 1 (one) tablet by mouth 2 times daily with morning and evening meal for 7 days 14 tablet 12/15/2021 12/22/2021 lisinopril (PRINIVIL; ZESTRIL) 20 MG tablet Take by mouth once daily 07/18/2022 metoprolol succinate XL 24hr (TOPROL XL) 25 MG tablet Take 1 (one) tablet by mouth once daily 30 tablet 3 12/11/2021 01/22/2022 ticagrelor (BRILINTA) 90 MG tablet Take 1 (one) tablet by mouth 2 times daily 60 tablet 3 12/10/2021 01/22/2022 documented as of this encounter ED Notes * Helena Horton MD - 12/15/2021 6:53 AM CDTAssociated Order(s): Splint Application ASSUMED CARE NOTE Patient signed out to me by Dr. Jang at 6:00 AM. Briefly, Michael Grey is a 56 year old male is being evaluated for posterior right hand swelling. The patient reports swelling with associated symptoms of pain. He states recent catheterization, discharged on December 10, 2021. At this time the patient's condition is Stable. Thus far, studies reveal CT of upper right extremity shows; Patent vessels of the right upper extremity, without evidence of pseudoaneurysm. Pending reassessment, cardiology recommendations. Plan is Volar splint, antibiotics, anticipate discharge. Vitals: 12/15/21 0148 BP: 131/69 Pulse: 81 Resp: 18 Temp: 97.2 ??F (36.2 ??C) SpO2: 100% Weight: 93.9 kg (207 lb) Height: 1.524 m (5') ED Course: Splint Application Date/Time: 12/15/2021 7:50 AM Performed by: Helena Horton MD Authorized by: Helena Horton MD Consent: Consent obtained: Verbal Consent given by: Patient Risks, benefits, and alternatives were discussed: yes Risks discussed: Pain, numbness and discoloration Alternatives discussed: No treatment Kenova protocol: Procedure explained and questions answered to patient or proxy's satisfaction: yes Relevant documents present and verified: yes Test results available: yes Imaging studies available: yes Patient identity confirmed: Verbally with patient and arm band Pre-procedure details: Distal neurologic exam: Normal Distal perfusion: distal pulses strong Procedure details: Location: Wrist Wrist location: R wrist Strapping: no Cast type: Short arm Splint type: Wrist Supplies: Plaster Post-procedure details: Distal neurologic exam: Normal Distal perfusion: distal pulses strong, brisk capillary refill and unchanged Procedure completion: Tolerated Post-procedure imaging: not applicable 07:52 AM: Patient placed in Volar splint. D/w pt and plan. Ct no acute issue. This could be early synovitis vs gout. No hx ofgout. Finger not swollen but mianly tender dorsum of hand more on 3rdMCP. No wounds. 08:15 AM: Discussed all the pertinent aspects of the case with Cardiology who does not think issue today is related to post cath. Procedure note: After a review of the patient's case the Resident performed the documented procedure under my supervision. I was physically present during the Carlson portions performed by the Resident splint. 8:23 AM: I have reviewed his diagnostic findings and he has had an opportunity to ask me any questions he has about care, diagnosis and discharge plan. Patient is comfortable with the discharge plan.He will follow up as directed and will return to the ER if his condition worsens or he develops other urgent concerns. Used interpretor Clinical Impression: 1. Pain of right hand 2. Swelling of right hand Disposition: Discharge. By signing my name below, I, Campbell Alves, attest that this documentation has been prepared under the direction and in the presence of Dr. Horton. Signed: Sasha Lal. I, Dr. Horton, personally performed the services described in this documentation. All medical recordentries made by the rodibjohn were at my direction and in my presence. I have reviewed the chart and agree that the record reflects my personal performance and is accurate and complete. Electronically signed: Dr. Horton Date: 12/16/21 Time: 8:52 AM * Miguel Jang MD - 12/15/2021 3:31 AM CDT Emergency Physician note Patient seen with resident. I performed independent history and physical. Case discussed with resident assessment and plan agree with listed 1st below History: Patient. History is somewhat limited as school social worker had to be used as patient speaks Bulgarian. Patient last week had an NSTEMI and had a cardiac catheterization going through the right radialartery. Discharge summary notes complicated by right arm hematoma but does not describe. Patient presents complaining of severe sharp pain over his 3rd no cool for approximately 1 day. Has been having right arm pain but this pain came on approximately 24 hours prior to admission is severe. Pain is sharp aggravated by movement alleviated by nothing. Denies fevers, numbness, weakness. Past medical history as noted below including recent NSTEMI HPI: Onset- acute worsening 1 day ago Timing- constant Location- right hand Quality- sharp pain Severity- severe Context- see above Aassociated sxs- swelling and ecchymosis right arm Exacerbating- movement or palpation Alleviating- nothing ROS: Unable to obtain No All symptoms reviewed and negative except as marked Constitutional- no change in activity Eyes- no vision changes Ent- no face or neck pain Cv- no chest pain, Resp- no shortness of breath Gi- no abdominal pain, nausea, vomiting or diarrhea Gu- no dysuria Ms- see HPI, Skin- no rash Neuro- no weakness or headache Psych- Hemat/lymph- see HPI Endo- Immun/allergy- no seasonal allergies Past Medical History: Diagnosis Date ??? GERD (gastroesophageal reflux disease) ??? HTN (hypertension) ??? Hyperlipidemia No past surgical history on file. Social History Tobacco Use ??? Smoking status: Never Smoker ??? Smokeless tobacco: Never Used Vaping Use ??? Vaping Use: Never used Substance Use Topics ??? Alcohol use: Yes Alcohol/week: 5.8 standard drinks Comment: 1 beer daily ??? Drug use: No No Known Allergies Current Facility-Administered Medications Medication ??? iopamidol (Isovue 370) 76 % contrast Current Outpatient Medications Medication Sig ??? acetaminophen (TYLENOL) 325 MG tablet Take 1 (one) tablet by mouth every 6 hours as needed Maximum allowable Acetaminophen amount = 4 Grams (4000 mg) / 24 hours. ??? amLODIPine (NORVASC) 10 MG tablet Take 1 (one) tablet by mouth once daily Reasons: High Blood Pressure Disorder ??? aspirin (ASPIRIN) 81 MG chew tablet Take 1 (one) tablet by mouth once daily ??? ATORVASTATIN CALCIUM PO ??? lisinopril (PRINIVIL; ZESTRIL) 20 MG tablet Take by mouth once daily ??? metoprolol succinate XL 24hr (TOPROL XL) 25 MG tablet Take 1 (one) tablet by mouth once daily ??? nitroGLYCERIN (NITROSTAT) 0.4 MG tablet Dissolve 1 (one) tablet under the tongue every 5 minutes as needed for Angina (Chest pain) ??? omeprazole (PRILOSEC) 10 MG capsule Take by mouth daily before breakfast ??? ticagrelor (BRILINTA) 90 MG tablet Take 1 (one) tablet by mouth 2 times daily Exam: Vitals: 12/15/21 0148 BP: 131/69 Pulse: 81 Resp: 18 Temp: 97.2 ??F (36.2 ??C) SpO2: 100% Weight: 93.9 kg (207 lb) Height: 1.524 m (5') Gen- no acute distress Eyes- normal conjunctiva Ent- no neck swelling Cv- heart without murmur, normal pulses bilateral radial Resp- lung clear to auscultation Abd- soft, nontender, normal bowel sounds Back- nontender Gu- Ms- right arm and hand with marked ecchymosis in various stages of absorption from fingers up to axilla. Edema about the knuckles. Patient with full range of motion fingers. Patient is point tender over the 3rd MP joint both extensor and flexor surfaces. No cellulitis. Skin- see above Neuro- normal motor all 4 Psych- normal affect Lymph- MDM: DDx: Right hand pain swelling and tenderness-rule out pseudoaneurysm rule out aneurysm, rule out arthritis, rule out arthropathy rule out other Plan: Pain meds, CT, labs ED Course: Labs Reviewed CBC W AUTO DIFFERENTIAL - Abnormal; Notable for the following components: Result Value WBC 11.8 (*) Lymphocytes % 19.6 (*) Eosinophils % 10.8 (*) Neutrophils Absolute 7.2 (*) Eosinophils Absolute 1.27 (*) All other components within normal limits COMPREHENSIVE METABOLIC PANEL - Abnormal; Notable for the following components: Creatinine 1.19 (*) ALT 151 (*) AST 64 (*) eGFR by CKD-EPI 72 (*) All other components within normal limits ERYTHROCYTE SEDIMENTATION RATE - Abnormal; Notable for the following components: Erythrocyte Sedimentation Rate Westergren 62 (*) All other components within normal limits C-REACTIVE PROTEIN - Abnormal; Notable for the following components: C-Reactive Protein 0.7 (*) All other components within normal limits URIC ACID BLOOD - Abnormal; Notable for the following components: Uric Acid 9.5 (*) All other components within normal limits TYPE + SCREEN PANEL BLOOD TYPE VERIFICATION Lab interpret: As noted CT ANGIO UPPER EXTREMITY RIGHT (Results Pending) Rad interpret: Pain ED COURSE: 0600-care doctor Sol pending work up pt counseled on findings and plan Clinical Impression: Acute right hand pain Subacute right arm ecchymosis Disposition: Pending Miguel Jang MD 12/15/2021 7:30 AM * Kandis Montana RN - 12/15/2021 2:27 AM CDT Bed: [facility] Expected date: Expected time: Means of arrival: Comments: documented in this encounter Plan of Treatment Not on file documented as of this encounter Procedures Procedure Name Priority Date/Time Associated Diagnosis Comments ED SPLINT APPLICATION Routine 12/15/2021 7:[address] ANGIO UPPER EXTREMITY RIGHT STAT 12/15/2021 6:29 AM CDT Pain of right hand BLOOD TYPE VERIFICATION STAT 12/15/2021 4:19 AM CDT URIC ACID BLOOD STAT 12/15/2021 4:02 AM CDT C-REACTIVE PROTEIN DAVID 12/15/2021 4: 02 AM CDT TYPE + SCREEN PANEL STAT 12/15/2021 4 :02 AM CDT ERYTHROCYTE SEDIMENTATION RATE STAT 12/15/2021 4:02 AM CDT CBC W AUTO DIFFERENTIAL STAT 12/15/2021 4:02 AM CDT COMPREHENSIVE METABOLIC PANEL STAT 12/15/2021 4:02 AM CDT documented in this encounter Results * Splint Application (12/15/2021 7:50 AM CDT) [...] numbness and discoloration ??Alternatives discussed: ??No treatment [place] protocol: ??Procedure explained and questions answered to [...] of pseudoaneurysm. Dictated by Gabby Espinosa MD (vice president supply chain). I, Dr. JACKY [place] MD have personally reviewed and interpreted this examination/study. This report was electronically signed by JACKY [place] MD ??on 12/15/2021 12:26 PM . Narrative [...] evaluation of flexor tenosynovitis. Procedure Note Jacky [place] MD - 12/15/2021 Procedure Information DATE: 12/15/2021 [...] of pseudoaneurysm. Dictated by Gabby Espinosa MD (vice president supply chain). I, Dr. JACKY [place] MD have personally reviewed and interpreted this examination/study. This report was electronically signed by JACKY [place] MD on12/15/2021 12:26 PM . Dinora Mathew MD CT ORDERABLES * BLOOD TYPE VERIFICATION (12/15/2021 4:19 AM CDT) ABO Rh A POS 12/15/2021 5:0 0 AM CDT [facility] BLOOD BANK LAB Blood Bank BLOOD SPECIMEN / Unknown Lab Venipuncture / Unknown 12/15/2021 4:19 AM CDT 12/15/2021 4:26 AM CDT Miguel Jang MD LAB - BLOOD BANK ORD ERABLES [facility] BLOOD BANK LAB [address] [place] [address], [facility] [phone] * (ABNORMAL) URIC ACID BLOOD (12/15/2021 4:02 AM CDT) Uric Acid 9.5(H) 3.5 - 7.2 mg/dL 12/15/2021 4:34 AM CDT [facility] Blood BLOOD SPECIMEN / Unknown Venipuncture / Unknown 12/15/2021 4:02 AM CDT 12/15/2021 4:07 AM CDT Dinora Mathew MD LAB - CHEMISTRY ORDERABLES Performing Organization Address City/[facility]/ZIP Co de Phone Number [address] [address], [place] [phone] * TYPE + SCREEN PANEL (12/15/2021 4:02 AM CDT) Antibody Screen NEG 5:00 AM CDT [facility] BLOOD [facility]ANK LAB ABO Rh A POS 12/15/2021 5:00 AM CDT [facility] LAB Blood Bank BLOOD SPECIMEN / Unknown Venipuncture / Unknown 12/15/2021 4:02 AM CDT 12/15/2021 4:13 AM CDT Miguel Jang MD LAB - BLOOD BANK ORD ERABLES Performing Organization Address [facility]/ZIP Co de Phone Number [facility] [address] [place] [phone], [place] [phone] * (ABNORMAL) C-REACTIVE PROTEIN (12/15/2021 4:02 AM CDT) C-Reactive Protein 0.7(H) <=0.5 mg/dL 12/15/2021 4:31 AM CDT [facility] Blood BLOOD SPECIMEN / Unknown Venipuncture / Unknown 12/15/2021 4:02 AM CDT 12/15/2021 4:06 AM CDT Miguel Jang MD LAB - CHEMISTRY ORDE RABLES [facility] [address] [address], [place] [phone] * (ABNORMAL) ERYTHROCYTE SEDIMENTATION RATE (12/15/2021 4:02 AM CDT) Erythrocyte Sedimentation Rate Westergren 62(H) 0 - 20 MM/HR 12/15/2021 4:31 AM CDT [facility] Blood BLOOD SPECIMEN / Unknown Venipuncture / Unknown 12/15/2021 4:02 AM CDT 12/15/2021 4:07 AM CDT Miguel Jang MD LAB - HEMATOLOGY ORD ERABLES [facility] [address] [place] [address], [facility] [phone] * (ABNORMAL) COMPREHENSIVE METABOLIC PANEL (12/15/2021 4:02 AM CDT) BUN 20 7 - 26 mg/dL 12/15/2021 4:36 AM [facility] Creatinine 1.19(H) 0.71 - 1.16 mg/dL 12/15/2021 4:36 AM [facility] Sodium 139 136 - 145 mmol/L 12/15/2021 4:36 AM [facility] Potassium 4.3 3.5 - 4.5 mmol/L 12/15/2021 4:36 AM [facility] Chloride 103 98 - 107 mmol/L 12/15/2021 4:36 AM [facility] CO2 24 22 - 29 mmol/L 12/15/2021 4:36 AM [facility] Glucose 108 70 - 115 mg/dL 12/15/2021 4:36 AM [facility] Calcium 9.9 8.4 - 10.2 mg/dL 12/15/2021 4:36 AM [facility] Protein Total 7.3 6.0 - 8.3 g/dL 12/15/2021 4:36 AM [facility] Albumin 3.8 3.4 - 5.0 g/dL 12/15/2021 4:36 AM [facility] Bilirubin Total 0.7 0.2 - 1.2 mg/dL 12/15/2021 4:36 AM [facility] Alkaline Phosphatase 100 40 - 150 U/L 12/15/2021 4:36 AM [facility] ALT 151(H) 5 - 55 U/L 12/15/2021 4:36 AM [facility] AST 64(H) 5 - 34 U/L 12/15/2021 4:36 AM [facility] Anion Gap 16 8 - 18 12/15/2021 4:36 AM [facility] BUN/Creatinine Ratio 17 7 - 23 12/15/2021 4:36 AM [facility] Osmolality Calculated 291 270 - 300 mOsm/kg 12/15/2021 4:36 AM [facility] Albumin/Globulin Ratio 1.1 1.1 - 2.3 12/15/2021 4:36 AM [facility] eGFR by CKD-EPI 72(L) >=90 mL/min/1.7 3 m2 12/15/2021 4:36 AM [facility] Blood BLOOD SPECIMEN / Unknown Venipuncture / Unknown 12/15/2021 4:02 AM CDT 12/15/2021 4:07 AM T Miguel Jang MD LAB - CHEMISTRY ASHER REZA [facility] Organization Address City/State/ZIP Co de Phone Number [address] [address], [facility] [phone] * (ABNORMAL) CBC W AUTO DIFFERENTIAL (12/15/2021 4:02 AM CDT) WBC 11.8(H) 3.5 - 10.5 10? 3 /uL 12/15/2021 4:13 AM [facility] RBC 4.39 4.30 - 5.70 10? 6 /uL 12/15/2021 4:13 AM [facility] Hemoglobin 13.3 12.0 - 17.6 g/dL 12/15/2021 4:13 AM [facility] Hematocrit 39.9 35.2 - 51.7 % 12/15/2021 4:13 AM [facility] MCV 90.9 80.7 - 98.3 fL 12/15/2021 4:13 AM [facility] MCH 30.3 26.7 - 34.0 pg 12/15/2021 4:13 AM [facility] MCHC 33.3 30.8 - 35.9 g/dL 12/15/2021 4:13 AM [facility] Platelet Count 221 150 - 400 10? 3 /uL 12/15/2021 4:13 AM [facility] RDW-SD 39.2 36.0 - 50.0 fL 12/15/2021 4:13 AM [facility] RDW-CV 11.8 11.2 - 14.8 % 12/15/2021 4:13 AM [facility] MPV 9.5 9.4 - 12.9 fL 12/15/2021 4:13 AM [facility] nRBC Absolute 0.00 0 10? 3 /uL 12/15/2021 4:13 AM [facility] nRBC Auto 0.0 0 /100 WBC 12/15/2021 4:13 AM [facility] Neutrophils % 60.9 35.0 - 70.0 % 12/15/2021 4:13 AM [facility] Lymphocytes % 19.6(L) 20.0 - 43.0 % 12/15/2021 4:13 AM [facility] Monocytes % 7.8 5.0 - 13.0 % 12/15/2021 4:13 AM [facility] Eosinophils % 10.8(H) 0.0 - 6.0 % 12/15/2021 4:13 AM [facility] Basophil % 0.6 0.0 - 2.0 % 12/15/2021 4:13 AM [facility] Neutrophils Absolute 7.2(H) 1.6 - 7.0 10? 3 /uL 12/15/2021 4:13 AM [facility] Lymphocyte Absolute 2.3 1.1 - 3.9 10? 3 /uL 12/15/2021 4:13 AM [facility] Monocytes Absolute 0.92 0.26 - 1.07 10? 3 /uL 12/15/2021 4:13 AM [facility] Eosinophils Absolute 1.27(H) 0.00 - 0.47 10? 3 /uL 12/15/2021 4:13 AM [facility] Basophils Absolute 0.07 0.00 - 0.08 10? 3 /uL 12/15/2021 4:13 AM [facility] Immature Granulocytes % 0.3 0.0 - 1.0 % 12/15/2021 4:13 AM CDT [facility] Immature Granulocytes Absolute 0.03 12/15/2021 4:13 AM CDT [facility] Blood BLOOD SPECIMEN / Unknown Venipuncture / Unknown 12/15/2021 4:02 AM CDT 12/15/2021 4:07 AM CDT Miguel Jang MD LAB - HEMATOLOGY ORD ERABLES [facility] [address] [place] [address], [facility] [phone] documented in this encounter Visit Diagnoses Diagnosis Pain of right hand Pain in limb Swelling of right hand Hemorrhage, not elsewhere classified Other specified postprocedural states documented in this encounter Administered Medications Inactive Administered Medications - up to 3 most recent administrations Medication Order [facility] Action Action Date Dose Rate Site amoxicillin-clavulanate (Augmentin) tablet 875 mg 875 mg, Oral, 2 TIMES DAILY, First dose on 12/15/21 at 0900, Until Discontinued, Administer with food to decrease GI side effects., Indication for anti-infective therapy: Suspected infection, Site of anti-infective therapy: Skin/soft tissue $ Given 12/15/2021 8:41 AM CDT 875 mg HYDROcodone-acetaminophen (Redfox) 5-325 MG tablet 1 tablet 1 tablet, Oral, NOW, 1 dose, On 12/15/21 at 0345, Patient preference for lesser PRN pain meds may be honored when the patient requests a less strong medication, a lower dose, or a less intrusive route of administration when the lesser drug, dose and route have been ordered for the patient. This patient request must be documented in the MAR. $ Given 12/15/2021 6:57 AM CDT 1 tablet HYDROcodone-acetaminophen (Redfox) 5-325 MG tablet 1 tablet 1 tablet, Oral, NOW, 1 dose, On 12/15/21 at 0845, Patient preference for lesser PRN pain meds may be honored when the patient requests a less strong medication, a lower dose, or a less intrusive route of administration when the lesser drug, dose and route have been ordered for the patient. This patient request must be documented in the MAR. $ Given 12/15/2021 8:40 AM CDT 1 tablet HYDROmorphone (Dilaudid) injection 0.5 mg 0.5 mg, Intravenous, NOW, 1 dose, On 12/15/21 at 0345, Patient preference for lesser PRN pain meds may be honored when the patient requests a less strong medication, a lower dose, or a less intrusive route of administration when the lesser drug, dose and route have been ordered for the patient. This patient request must be documented in the MAR. $ Given 12/15/2021 4:07 AM CDT 0.5 mg iopamidol (Isovue 370) 76 % contrast Intravenous, CONTRAST ONCE, Starting on 12/15/21 at 0537, Until 12/15/21 at 1043 $ Given - Contrast 12/15/2021 5:38 AM CDT 100 mL documented in this encounter Active and Recently Administered Medications Times are shown in CDT. Scheduled Medication Order 12/13/2021 12/14/2021 12/15/2021 amoxicillin-clavulanate (Augmentin) tablet 875 mg 875 mg, Oral, 2 TIMES DAILY, First dose on 12/15/21 at 0900, Until Discontinued, Administer with food to decrease GI side effects., Indication for anti-infective therapy: Suspected infection, Site of anti-infective therapy: Skin/soft tissue 0841 ($ Given - Prov ider: Hollie Hendricks RN) HYDROcodone-acetaminophen (Redfox) 5-325 MG tablet 1 tablet (COMPLETED) 1 tablet, Oral, NOW, 1 dose, On 12/15/21 at 0345, Patient preference for lesser PRN pain meds may be honored when the patient requests a less strong medication, a lower dose, or a less intrusive route of administration when the lesser drug, dose and route have been ordered for the patient. This patient request must be documented in the MAR. 0657 ($ Given - Prov ider: Orlando Ramos RN) HYDROcodone-acetaminophen (Redfox) 5-325 MG tablet 1 tablet (COMPLETED) 1 tablet, Oral, NOW, 1 dose, On 12/15/21 at 0845, Patient preference for lesser PRN pain meds may be honored when the patient requests a less strong medication, a lower dose, or a less intrusive route of administration when the lesser drug, dose and route have been ordered for the patient. This patient request must be documented in the NOV. 08 ($ Given - Prov ider: Hollie Hendricks, RN) HYDROmorphone (Dilaudid) injection 0.5 mg (COMPLETED) 0.5 mg, Intravenous, NOW, 1 dose, On 12/15/21 at 0345, Patient preference for lesser PRN pain meds may be honored when the patient requests a less strong medication, a lower dose, or a less intrusive route of administration when the lesser drug, dose and route have been ordered for the patient. This patient request must be documented in the NOV. 406 ($ Given - Prov ider: Gavi Harden RN) iopamidol (Isovue 370) 76 % contrast Intravenous, CONTRAST ONCE, Starting on 12/15/21 at 0537, Until 12/15/21 at 1043 0538 ($ Given - Cont rast - Provider: Kiersten Kramer, RT(R)CT) documented in this encounter
--- OUTSIDE RECORDS SUMMARY | 2024-09-11 14:01 | XMS_ITS | Encounter Summary ---
Author Organization [facility] Address [address] [address] Care Team Providers Care Supervisor Reclamation Name Role Phone Unavailable Primary Care Provider Unavailabl e Reason for Visit * Reason Onset Date Comments Cardiac Rehab 12/11/2021 Encounter Details Date Type Department Care Team (Late st Contact Info) Description 12/11/2021 Telephone [facility] [address] [place] [address] Alicia Virk, marker shipments Social History Tobacco Use Types Packs/Day Years Used Date Smoking Tobacco: Never Smokeless Tobacco: Never Alcohol Use Standard Drinks/Week Comments Yes 5.8 (1 standard drink = 0.6 oz p ure alcohol) 1 beer daily Sex and Gender Information Value Date Recorded Sex Assigned at Not on file Gender Identity Not on file Sexual Orientation Not on file documented as of this encounter Functional Status Functional Status Response [...] No 12/07/2021 documented as of this encounter Miscellaneous Notes * Telephone Encounter - Alicia Virk RN - 12/11/2021 11:47 AM CDT Called pt regarding his referral to Cardiac Rehab, no answer, left VM with call back number. documented in this encounter Plan of Treatment Not on file documented as of this encounter Visit Diagnoses Not on filedocumented in this encounter
--- OUTSIDE RECORDS SUMMARY | 2024-09-11 14:01 | XMS_ITS | Encounter Summary ---
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 Name Role Phone Unavailable Primary Care Provider Unavailabl e Reason for Visit * Reason Comments Follow-up Encounter Details Date Type Department Care Team (Late st Contact Info) Description 07/18/2022 3:30 PM CDT Office Visit [facility] [address] [facility] [address] [place] [address] Malini Locke MD [address] [place] [address] Other chest pain (Primary Dx); NSTEMI (non-ST elevated myocardial infarction) (HCC); Essential hypertension; Coronary artery disease involving chickahominy indian tribe coronary artery of chickahominy indian tribe heart, unspecified whether angina present; Presence of drug-eluting stent in anterior descending branch of left coronary artery Social History Tobacco Use Types Packs/Day Years [...] Pulse 76 07/18/2022 3:24 PM CDT Temperature - - Respiratory Rate - - Oxygen Saturation 98% 07/18/2022 3:24 PM CDT Inhaled Oxygen Concentration - - Weight 97.1 kg (214 lb) 07/18/2022 3:24 PM CDT Height 152.4 cm (5') 07/18/2022 3:24 PM CDT Body Mass Index 41.79 07/18/2022 3:24 PM CDT documented in this encounter Functional [...] No 12/07/2021 documented as of this encounter Patient Instructions * Patient Instructions* Malini Locke MD - 07/18/2022 4:47 PM CDT Mr. Grey, You were seen in the cardiology clinic for chest pain symptoms. It could be due to poor blood flow to your heart. We will increase your medications and add amlodipine 10mg daily. If your chest pain gets worse or if you have to take more nitroglycerin then please to go to the emergency room. Signed, [facility] Cardiology documented in this encounter Progress Notes * Woodrow Rose MD - 07/18/2022 4:36 PM CDT ATTENDING PHYSICIAN NOTE Patient seen and examined with the resident. I confirm history, exam, assessment and plan. In addition I note: Interval history: CAD. NSTEMI and PCI to prox LAD. Well til recently and now with recurrent anginalCP. Resolves with TNG. [facility] ED and sent home in 01/2022. [place] BP. DAPT. Toprol XL and lisinopril/HCTZ. Lipitor 40 and not taking amlodipine. Here for reassessment. Bifurcation lesion. Med Rx. Frequent. Possible rest pain. ? nocturnal CP. Cath with short left main and bifurcation LAD/LCX lesion. Cath if more Sx. Add amlodipine. Push metoprolol and close FU. Exam: BP 120/90 Pulse 76 Ht 5' (1.524 m) Wt 214 lb (97.1 kg) SpO2 98% Gen: NAD. Neck: (-) JVD Cor: RRR. S4, No S3. Resp: clear bilaterally. GI: soft. NT. 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 Data Review: Lab Results: Recent Labs Component Name 01/21/22230912/15/2140112/10/21 0626 WBC 12.2* 11.8* 11.2* HGB 12.3 13.3 14.4 HCT 35.7 39.9 42.8 PLTCOUNT 231 221 195 Recent Labs Component Name 01/21/22230912/15/212 12/10/21 0626 POTASSIUM 3.4* 4.3 4.2 CO2 21* 24 22 BUN 26 20 16 CREATININE 1.11 1.19* 1.06 GLUCOSE 119* 108 109 CALCIUM 9.0 9.9 9.4 Recent Labs Component Name 12/09/21 1651 12/09/21 0556 12/08/21 1904 12/08/21 0549 12/08/21 0200 12/07/21 2203 12/07/21 1352 INR - 1.0 - - 1.1 - 1.0 PT - 13.3 - - 13.6 - 12.5 PTT 117.8* 105.0* 53.9* - 120.7* - 24.0 - = values in this interval not displayed. Recent Labs Component Name 01/21/22230912/15/21 0402 12/07/21 1058 ALKPHOS 190* 100 93 ALT 68* 151* 31 AST 35* 64* 25 Recent Labs Component Name 12/08/21 0200 TSH 1.435 No results for input(s): CKMB, TROPONIN, MYOGLOBIN in the last 08872 hours. No results for input(s): PHART, LOO5MMT, PO2ART, C5KOKTWV, LOX4EXE, BEART, FIO2 in the last 51139 hours. Recent Labs Component Name 12/08/21 0200 CHOL 182 HDL 44 TRIG 89 LDLCALC 120* Assessment/Plan: CAD. NSTEMI and PCI to prox LAD. Well til recently and now with recurrent anginal CP. Resolves with TNG. [facility] ED and sent home in 01/2022. [place] BP. DAPT. Toprol XL and lisinopril/HCTZ. Lipitor 40 and not taking amlodipine. Here for reassessment. Bifurcation lesion. Med Rx. Frequent. Possible rest pain. ? nocturnal CP. Cath with short left main and bifurcation LAD/LCX lesion. Cath if more Sx. Add amlodipine. Push metoprolol and close FU. Please see the resident's note for further details. Woodrow Rose MD, F.A.C.C. review nurse 07/18/2022 4:36 PM * Malini Locke MD - 07/18/2022 4:18 PM CDT Images from the original note were not included. [facility] Cardiovascular Disease Outpatient Note Name: Michael Grey : 1965 History of Present Illness Michael Grey is a 56 year old White/ male w/PMHx significant for HTN, HLD whopresents to [facility] Cardiology Clinic for f/u after NTEMI s/p PCI to prox-LAD 12/09/21. Pt states that afew months ago began developing chest tension episodes occurring a few times a week which can occur with or without exertion. Relieved with 1x SL nitroglycerin. Does not worsen with exercise. [facility]. Pt compliant with home DAPT therapy and metoprolol but has not fillled amlodipine prescription. no dyspnea on exertion, no swelling of ankles, no orthostatic dizziness or lightheadedness, no orthopnea or paroxysmal nocturnal dyspnea, no palpitations Review of Systems - provided in HPI Past Medical History He has a past medical history of GERD (gastroesophageal reflux disease), HTN (hypertension), and Hyperlipidemia. Medications Current Outpatient Medications Medication ??? acetaminophen (TYLENOL) 325 MG tablet ??? amLODIPine (Norvasc) 10 MG tablet ??? aspirin (ASPIRIN) 81 MG chew tablet ??? ATORVASTATIN CALCIUM PO ??? clopidogrel (PLAVIX) 75 MG tablet ??? HYDROcodone-acetaminophen (NORCO) 5-325 MG tablet ??? lisinopril-hydroCHLOROthiazide (Prinzide; Zestoretic) 10-12.5 MG tablet ??? metoprolol succinate XL 24hr (Toprol XL) 50 MG tablet ??? nitroGLYCERIN (NITROSTAT) 0.4 MG tablet ??? omeprazole (PRILOSEC) 10 MG capsule No current facility-administered medications for this visit. Past Surgical History His has no past surgical history on file. Social History He reports that he has never smoked. He has never used smokeless tobacco. He reports current alcohol use of about 5.8 standard drinks per week. He reports that he does not use drugs. Family History His Family history is unknown by patient. He has no family status information on file. Allergies No Known Allergies Objective Vitals: 07/18/22 1524 BP: 120/90 Pulse: 76 SpO2: 98% Weight: 214 lb (97.1 kg) Height: 5' (1.524 m) Body mass index is 41.79 kg/m??. Physical Exam Constitutional: General: He is not in acute distress. Appearance: Normal appearance. HENT: Mouth/Throat: Mouth: Mucous membranes are moist. Eyes: General: No scleral icterus. Cardiovascular: Rate and Rhythm: Normal rate and regular rhythm. Heart sounds: No murmur heard. No friction rub. No gallop. Pulmonary: Effort: Pulmonary effort is normal. No respiratory distress. Breath sounds: Normal breath sounds. No stridor. No wheezing, rhonchi or rales. Chest: Chest wall: No tenderness. Abdominal: General: Abdomen is flat. Bowel sounds are normal. There is no distension. Palpations: Abdomen is soft. Tenderness: There is no abdominal tenderness. There is no guarding. Musculoskeletal: General: No swelling or tenderness. Right lower leg: No edema. Left lower leg: No edema. Skin: General: Skin is warm and dry. Capillary Refill: Capillary refill takes less than 2 seconds. Neurological: General: No focal deficit present. Mental Status: He is alert and oriented to person, place, and time. Laboratory Data -reviewed in chart. Imaging: -reviewed in chart. Pertinent below: Cardiac Testing: Echocardiogram (12/09/21) The left ventricle is normal size. Left ventricular segmental wall motion is normal. Left ventricular systolic function is normal with an ejection fraction by Biplane Method of Discs of 64 %. The left ventricular diastolic function is normal, consistent with normal left ventricle filling pressures. The right ventricular cavity size is normal. Normal right ventricular systolic function. There is no evidence of a right to left shunt by bubble study or Doppler interrogation. No significant valvular abnormalities. ?? Cardiac Cath (12/09/21) ?? HEMODYNAMIC FINDINGS:? Aortic: 134/71 mmHg LV: 131/12 mmHg LVEDP: 12 mmHg ?? ANGIOGRAPHY: ?i.?Left main: Large short LM giving riseto a large LAD and large LCX. No significant disease in the LM. ?ii.?LAD: Large LAD giving rise to a small D1 and moderate D2. There is a 90% hazy lesion in the proximal LAD. ?iii.?LCx: Large LCX giving rise to a smallOM1, small OM2, large OM3. No significant disease in the LCX. ?iv.?RCA: Large dominant RCA giving rise tomoderate PDA and PLV. No significant disease in the RCA. ? DOMINANCE: Right ?? DIAGNOSTIC INTERPRETATIONS: 1) Single vessel chickahominy indian tribe CAD with 90% proximal LAD stenosis ?? RECOMMENDATIONS AFTER DIAGNOSTIC CATHETERIZATION:? PCI of the LAD. Assessment/Plan 1. CAD s/p NTEMI s/p PCI to prox-LAD 2. HTN 3. HLD ?? - ongoing chest pain concerning for angina. Will uptitrate antianginal therapy with addition of amlodipine 10mg daily and increasing metoprolol succinate to 50mg QD - will arrange close follow-up in a couple weeks. If chest pain continues will refer for cardiac cath to evaluate - continue DAPT and high intensity statin - advised patient in chest pain worsens or has to take increasing dose of SL nitrolgycerin to visitER urgently Plan to follow up in clinic in 2 weeks (s). Electronically Signed By: Malini Locke M.D. Cardiovascular Disease Fellow Department of Cardiology Signed: 07/19/2022 8:21 AM documented in this encounter Plan of Treatment Not on file documented as of this encounter Visit Diagnoses Diagnosis Other chest pain- Primary NSTEMI (non-ST elevated myocardial infarction) (HCC) Acute myocardial infarction, subendocardial infarction, episode of care unspecified Essential hypertension Coronary artery disease involving chickahominy indian tribe coronary artery of chickahominy indian tribe heart, unspecified whether angina present Presence of drug-eluting stent in anterior descending branch of left coronary artery documented in this encounter
--- OUTSIDE RECORDS SUMMARY | 2024-09-11 14:01 | XMS_ITS | Encounter Summary ---
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 Name Role Phone Unavailable Primary Care Provider Unavailabl e Encounter Details Date Type Department Care Team (Late st Contact Info) Description 12/27/2021 4:00 PM CDT Office Visit [facility] Cardiology [address] [facility] [address] [place] [address] Malini Locke MD [address] [place], [place] [id number] Other chest pain (Primary Dx) Social History Tobacco Use Types Packs/Day Years [...] Sign Reading Time Taken Comments Blood Pressure 124/72 12/27/2021 1:09 PM CDT Pulse 74 12/27/2021 1:09 PM CDT Temperature 36.1 ??C (97 ??F) 12/27/2021 1:09 PM CDT Respiratory Rate - - Oxygen Saturation 99% 12/27/2021 1:09 PM CDT Inhaled Oxygen Concentration - - Weight 101.6 kg (224 lb) 12/27/2021 1:09 PM CDT Height 152.4 cm (5') 12/27/2021 1:09 PM CDT Body Mass Index 43.75 12/27/2021 1:09 PM CDT documented in this encounter Functional [...] * Patient Instructions* Malini Locke MD - 12/27/2021 2:04 PM CDT Continua aspirin 81 mg daily, atorvastatin 80 mg daily, metoprolol, amlodpine. Continua Brilinta hasta se anthony. Hemos prescribido tanvi medication neuva para myron en ves de Brilinta. Se llama clopidogrel (Plavix) 75 mg tanvi vez cada aaron. documented in this encounter Progress Notes * Malini Locke MD - 12/27/2021 4:00 PM CDT Images from the original note were not included. [facility] Cardiovascular Disease Outpatient Note Name: Michael Grey : 1965 History of Present Illness Michael Grey is a 56 year old White/ male w/PMHx significant for HTN, HLD whopresents to [facility] Cardiology Clinic for f/u after NTEMI s/p PCI to prox-LAD 12/09/21. NTEMI course complicationed with RUE hematoma but extremities doppler negative. LVEF normal. Discharged on 24 monthsDAPT. Pt states that since discharge has been having ongoing pleuritic chest pain that has been improving. Has some mild bruising along RUE. States that he is close to running out of home brilinta and currently does not have insurance to be able to afford refills. Has been working with [facility] social work to help establish medicare. Review of Systems - provided in HPI Past Medical History He has a past medical history of GERD (gastroesophageal reflux disease), HTN (hypertension), and Hyperlipidemia. Medications Current Outpatient Medications Medication ??? acetaminophen (TYLENOL) 325 MG tablet ??? amLODIPine (NORVASC) 10 MG tablet ??? aspirin (ASPIRIN) 81 MG chew tablet ??? ATORVASTATIN CALCIUM PO ??? clopidogrel (PLAVIX) 75 MG tablet ??? HYDROcodone-acetaminophen (NORCO) 5-325 MG tablet ??? lisinopril (PRINIVIL; ZESTRIL) 20 MG tablet ??? metoprolol succinate XL 24hr (TOPROL XL) 25 MG tablet ??? nitroGLYCERIN (NITROSTAT) 0.4 MG tablet ??? omeprazole (PRILOSEC) 10 MG capsule ??? ticagrelor (BRILINTA) 90 MG tablet No current facility-administered medications for this visit. Past Surgical History His has no past surgical history on file. Social History He reports that he has never smoked. He has never used smokeless tobacco. He reports current alcohol use of about 5.8 standard drinks of alcohol per week. He reports that he does not use drugs. Family History His Family history is unknown by patient. He has no family status information on file. Allergies No Known Allergies Objective Vitals: 12/27/21 1309 BP: 124/72 Pulse: 74 Temp: 97 ??F (36.1 ??C) SpO2: 99% Weight: 224 lb (101.6 kg) Height: 5' (1.524 m) Body mass index is 43.75 kg/m??. Physical Exam Constitutional: General: He is [...] -reviewed in chart. Pertinent below: Cardiac Testing: EKG Echocardiogram (12/09/21) The left ventricle is normal [...] or Doppler interrogation. No significant valvular abnormalities. Cardiac Cath (12/09/21) HEMODYNAMIC FINDINGS: Aortic: 134/71 mmHg LV: 131/12 mmHg LVEDP: 12 mmHg ?? ANGIOGRAPHY: ?? i. ?Left main: Large short LM giving rise to a large LAD and large LCX. No significant disease in the LM. ii.?LAD: Large LAD giving rise to a small D1 and moderate D2. There is a 90% hazy lesion in theproximal LAD. iii. ?? LCx: Large LCX giving rise to a small OM1, small OM2, large OM3. No significant disease in the LCX. iv. ?? RCA: Large dominant RCA giving rise to moderate PDA and PLV. No significant disease in the RCA. ? DOMINANCE: Right ?? DIAGNOSTIC INTERPRETATIONS: 1) Single vessel [place] CAD with 90% proximal LAD stenosis ?? RECOMMENDATIONS AFTER DIAGNOSTIC CATHETERIZATION: PCI of the LAD. Assessment/Plan 1. CAD s/p NTEMI s/p PCI to prox-LAD 2. R Radial Site Hemoatoma 3. HTN 4. 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 Symptoms improving. EKG reassuring. Will opt for conservative management - R radial hematoma improving Plan - advised patient use warm compresses to help alleviate chest discomfort and R radial hematoma pain - continue DAPT x 24 months. Will switch to plavix from brillinta for better affordability - consult for medication assistance and to help establish medical insurance - check lipid panel in 3 months - continue ?-Soila and high-intensity statin - referral to cardiac rehab Plan to follow up in clinic in 6 month(s). Electronically Signed By: Malini Locke M.D. Cardiovascular Disease Fellow Department of Cardiology Signed: 12/29/2021 6:27 PM Cardiology Attending Attestation: Patient seen and examined with Fellow. Please see note for further details. I confirm history, exam, assessment and plan. In addition I note: Interval history: Patient without anginal symptoms, R radial hematoma resolving- no hand complaints. Continue GDMT for CAD - switch Brilinta to Plavix - for med assistance, insurance - high intensity statin, LDL goal < 70 DO [facility] 12/30/2021 7:54 AM documented in this encounter Procedure Notes * Elisha Simon MD - 12/30/2021 7:56 AM CDTAssociated Order(s): PROC EKG IN CLINIC Procedure(s): PROC EKG IN CLINIC Pre-Procedure Diagnose(s): Other chest pain documented in this encounter Plan of Treatment Not on file documented as of this encounter Procedures Procedure Name Priority Date/Time Associated Diagnosis Comments PROC EKG IN CLINIC Routine 12/30/2021 7: 56 AM CDT Other chest pain documented in this encounter Results * PROC EKG IN CLINIC (12/30/2021 7:56 AM CDT) Narrative Elisha Simon MD - 12/30/2021 7:56 AM CDT Elisha Simon MD ? 12/30/2021 ??7:56 AM Elisha Simon MD ECG ORDERABLES documented in this encounter Visit Diagnoses Diagnosis Other chest pain- Primary documented in this encounter
--- OUTSIDE RECORDS SUMMARY | 2024-09-11 14:02 | XMS_ITS | Encounter Summary ---
Author Organization [facility] Address [address] [place] [address] Care Team Providers Care Draw Frame Runner Name Role Phone Unavailable Primary Care Provider Unavailabl e Reason for Visit * Reason Comments GENERALIZED BODY ACHES Pt presents with a c/o bodyaches and weakness to hands and feet, chills, sore throat,headache and fever for the past 3 days. Pt denies any loss of smell or taste. Pt AO4. Pt is palauan speaking, triage completed using network associate. Epidemic Concern Encounter Details Date Type Department Care Team (Late st Contact Info) Description 04/30/2021 6:13 AM CDT - 04/30/2021 8:03 AM CDT Emergency [facility] [address] [place] [address] Woodrow Luna MD [address] [place] [address] COVID-19 virus infection (Primary Dx); Shortness of breath; Acute pharyngitis, unspecified etiology; Elevated blood pressure reading Discharge Disposition: Home or Self Care Social History Tobacco Use Types Packs/Day Years Used Date Smoking Tobacco: Never Smokeless Tobacco: Never Alcohol Use Standard Drinks/Week Comments Yes 5.8 (1 standard drink = 0.6 oz p ure alcohol) Sex and Gender Information Value Date Recorded Sex Assigned at Not on file Gender Identity Not on file Sexual Orientation Not on file documented as of this encounter Last Filed Vital Signs Vital Sign Reading Time Taken Comments Blood Pressure 162/93 04/30/2021 7:56 AM CDT Pulse 70 04/30/2021 7:56 AM CDT Temperature 36.6 ??C (97.9 ??F) 04/30/2021 6:00 AM CD T Respiratory Rate 18 04/30/2021 7:56 AM CDT Oxygen Saturation 100% 04/30/2021 7:56 AM CDT Inhaled Oxygen Concentration - - Weight 72.6 kg (160 lb) 04/30/2021 6:00 AM CDT Height 167.6 cm (5' 6 ) 04/30/2021 6:00 AM CDT Body Mass Index 25.82 04/30/2021 6:00 AM CDT documented in this encounter Discharge Instructions * Discharge Instructions* Madina Salazar PA-C - 04/30/2021 7:27 AM CDT You were seen in the ER for your symptoms. You were found to be COVID positive today. Please go directly home and quarantine for the next 10 days. You can use Tylenol or Ibuprofen for your symptoms at home. You will be sent home with a Pulse Oximeter to help measure your oxygen saturation levels. If your numbers drop below 90%, please return to the ER as you may need further medical attention. Please follow up with your Primary Care Provider for further evaluation at the end of your quarantine. Your blood pressure was also elevated during your visit. We gave you blood pressure medication in the ER and we will send you home with some as well. Please take as directed and follow up with your Primary Care Provider for further management and monitoring of your blood pressure. Your strep test was negative. Please return to the ER if you are having worsening shortness of breath, your oxygen drops below 90%, or you have further concerns. * Attachments The following attachments cannot be sent through Care Everywhere. * COVID-19 (Coronavirus Disease 2019) (AfterCare(R) Instructions(ER/ED)) (Russian) * How to Recover from COVID-19 at Home (AfterCare(R) Instructions(ER/ED)) (Russian) * Prehypertension (Elevated Blood Pressure) (Air Traffic Instructor) (Russian) * Pharyngitis (After[facility](R) Instructions(ER/ED)) (Russian) documented in this encounter Medications at Time of Discharge Medication Sig Dispensed Refills Start Date End Date amLODIPine (NORVASC) 10 MG tabletIndications:Hyper tension Take 1 (one) tablet by mouth once daily Reasons: High Blood Pressure Disorder 30 tablet 04/30/2021 07/18/2022 documented as of this encounter ED Notes * Rita Terrazas RN - 04/30/2021 8:01 AM CDT D/C instructions given to patient, pulse ox given, d/c paperwork given in spansih. Pt left ED> * Zeny Gatica - 04/30/2021 7:39 AM CDT Patient laying across multiple different benches resting with eyes closed no needs expressed at this time. * Patsy Curtis RN - 04/30/2021 6:13 AM CDT Pt presents with a c/o bodyaches and weakness to hands and feet, chills, sore throat,headache and fever for the past 3 days. Pt denies any loss of smell or taste. Pt AO4. Pt is palauan speaking, triage completed using network associate. * Woodrow Luna MD - 04/30/2021 6:11 AM CDT ED Attending Note History: Michael Grey is a Russian speaking 55 year old male with a past medical history that includes HTN is presenting to the ED c/o an epidemic concern. Patient reports myalgias, chills, sore throat, and a fever that began 3 days ago (04/27/21). He has received the COVID vaccinations. He has a history of HTN, but does not take any medications. Patient is very anxious and is wanting some medications. Patient denies shortness of breath, and chest pain. Patient has no other complaints or modifying factors. No past medical history on file. No past surgical history on file. Social [...] Alcohol use: Yes Alcohol/week: 5.8 standard drinks ??? Drug use: No ??? Sexual activity: Not on file Other Topics Concern ??? Not on file Social History Narrative Merged History Encounter Social Determinants of Health Financial Resource Strain: ??? Difficulty of Paying Living Expenses: Food Insecurity: ??? Worried About Running Out of Food in the Last Year: ??? Ran Out of Food in the Last Year: Transportation Needs: ??? Lack of Transportation (Medical): ??? Lack of Transportation (Non-Medical): Physical Activity: ??? Days of Exercise per Week: ??? Minutes of Exercise per Session: Stress: ??? Feeling of Stress : Social Connections: ??? Frequency of Communication with Friends and Family: ??? Frequency of Social Gatherings with Friends and Family: ??? Attends Zoroastrian Services: ??? Active Member of Clubs or Organizations: ??? Attends Club or Organization Meetings: ??? Marital Status: Intimate Partner Violence: ??? Fear of Current or Ex-Partner: ??? Emotionally Abused: ??? Physically Abused: ??? Sexually Abused: Review of Systems: Review of Systems Constitutional: Positive for chills and fever. Negative for malaise/fatigue. HENT: Positive for sore throat. Negative for congestion and ear pain. Eyes: Negative for blurred vision, pain and discharge. Respiratory: Negative for cough, shortness of breath and wheezing. Cardiovascular: Negative for chest pain and palpitations. Gastrointestinal: Negative for abdominal pain, diarrhea, nausea and vomiting. Genitourinary: Negative for dysuria, frequency and hematuria. Musculoskeletal: Negative for back pain, myalgias and neck pain. Skin: Negative for itching and rash. Neurological: Negative for dizziness, tingling, weakness and headaches. Psychiatric/Behavioral: Negative for depression and suicidal ideas. The patient is nervous/anxious. Patient Vitals for the past 6 hrs: Temp Pulse Resp BP 04/30/21 0600 97.9 ??F (36.6 ??C) 92 14 (!) 194/89 Exam: Physical Exam Vitals and nursing note reviewed. Constitutional: General: He is not in acute distress. HENT: Head: Normocephalic and atraumatic. Mouth/Throat: Lips: [place]. Mouth: Mucous membranes are moist. Eyes: Extraocular Movements: Extraocular movements intact. Conjunctiva/sclera: Conjunctivae normal. Pupils: Pupils are equal, round, and reactive to light. Cardiovascular: Rate and Rhythm: Normal rate and regular rhythm. Heart sounds: No murmur heard. No friction rub. No gallop. Pulmonary: Effort: Pulmonary effort is normal. No respiratory distress. Breath sounds: Normal breath sounds. No wheezing. Abdominal: General: Abdomen is flat. Bowel sounds are normal. There is no distension. Palpations: Abdomen is soft. Tenderness: There is no abdominal tenderness. Musculoskeletal: General: No deformity. Normal range of motion. Cervical back: Normal range of motion and neck supple. Skin: General: Skin is warm and dry. Findings: No bruising. Neurological: Mental Status: He is alert and oriented to person, place, and time. Comments: FREDERICK spontaneously Psychiatric: Mood and Affect: Mood is anxious. Behavior: Behavior normal. Medical Decision Makin. Epidemic concern 2. Essential HTN DDX: COVID vs strep pharyngitis vs pneumonia vs influenza vs other viral illness vs essential hypertension vs other Plan: COVID swab, strep screen, CXR, Norvasc, Atarax, reassess Results: Labs Reviewed SARS-COV-2 (COVID-19)+INFLU A+B PCR RAPID - Abnormal; Notable for the following components: Result Value COVID-19 PCR Detected (*) All other components within normal limits Narrative: Samples with high concentrations of SARS-CoV-2 RNA [...] possibility of a mixed viral infection. NOTE: Detecting and identifying specific viral nucleic acids from individuals exhibiting signs and symptoms of respiratory infection aids in the diagnosis of respiratory infection, if used in conjunction with other clinical and laboratory findings. The results of this test should not be used as thesole basis for diagnosis, treatment, or patient management decisions. This nucleic acid amplification assay performance was validated by [facility]. This test has been authorized by the [...] the Act, 21 U.S.C 360bbb-3 (b)(1), unless theauthorization is terminated or revoked sooner. Fact Sheets for this EUA assay are available upon request. STREP A SCREEN DIRECT W RFLX STREP A CULTURE - Normal Narrative: Rapid test for Group A Beta Streptococcus is NEGATIVE. A Negative, Direct Test for Group A Streptococcus will be followed with a confirmatory Throat Culture when 2 swabs have been submitted. CULTURE STREP GROUP A XR CHEST 1VW (Results Pending) ED course: The patient's Oxygen Saturation Monitor was interpreted by me. The reading was 99%. The patient wason RA at the time of the reading. This is interpreted as normal. 6:40 AM CXR is negative. 7:18 AM COVID swab is positive. Influenza swab is negative. Rapid strep swab is negative. Instructed the patient to self isolate immediately for the next 10 days. Instructed to make PCP appointment at the end of his quarantine. Given pulse oximeter and explained how to use it. Instructed the patient to return to the ED if his SpO2 drops below 90% or if his has worsening symptoms. Plan for discharge with COVID instructions and with Amlodipine 7:21 AM: I have reviewed his diagnostic findings and his has had an opportunity to ask me any questions his has about care, diagnosis and discharge plan. Patient is comfortable with the discharge plan. His will follow up as directed and will return to the ER if his condition worsens or his developsother urgent concerns. Consult No Procedure done at this time No Ultrasound done at this time No Orders Placed This Encounter ??? SARS-COV-2 (COVID-19)+INFLU A+B PCR RAPID ??? STREP A SCREEN DIRECT W RFLX STREP A CULTURE ??? CULTURE STREP GROUP A ??? XR CHEST 1VW ??? hydrOXYzine hcl (Atarax) tablet 25 mg ??? amLODIPine (Norvasc) tablet 10 mg ??? amLODIPine (NORVASC) 10 MG tablet Medications amLODIPine (Norvasc) tablet 10 mg (has no administration in time range) hydrOXYzine hcl (Atarax) tablet 25 mg (25 mg Oral $ Given 04/30/21 0652) Clinical Impression: 1. COVID-19 virus infection 2. Shortness of breath 3. Acute pharyngitis, unspecified etiology 4. Elevated blood pressure reading Disposition: Discharged By signing my name below, I, Tiffanie Zepeda, attest that this documentation has been prepared under the direction and in the presence of Dr. Luna. Signed: Sasha New. I, Dr. Luna, personally performed the services described in this documentation. All medical record entries made by the scribe were at my direction and in my presence. I have reviewed the chart and agree that the record reflects my personal performance and is accurate and complete. documented in this encounter Plan of Treatment Not on file documented as of this encounter Procedures Procedure Name Priority Date/Time Associated Diagnosis Comments SARS-COV-2 (COVID-19)+INFLU A+B PCR RAPID STAT 04/30/2021 6:33 AM CDT STREP A SCREEN DIRECT W RFLX STREP A CULTURE STAT 04/30/2021 6:33 AM CDT CULTURE STREP GROUP A Routine 04/30/2021 6:33 AM CDT XR CHEST 1VW STAT 04/30/2021 6:24 AM CDT Shortness of breath documented in this encounter Results * CULTURE STREP GROUP A (04/30/2021 6:33 AM CDT) Pathologist [facility] Culture Negative for beta-hemolytic Streptococcus Group A ALAN 05/01/2021 12:39 PM CDT [facility] Microbiology ENTIRE THROAT (SURFACE REGION OF NECK) / Unknown Collection / Unknown 04/30/2021 6:33 AM CDT 04/30/2021 6:39 AM CDT Madina Salazar PA-C LAB - MICROBIOL OGY ORDERABLES Performing Organization Address City/[facility]/ZIP Co de Phone Number [facility] [address] [place] [address], [facility] [phone] * STREP A SCREEN DIRECT W RFLX STREP A CULTURE (04/30/2021 6:33 AM CDT) Pathologist [facility] Rapid Strep A Screen Negative Negative 04/30/2021 7:15 AM CDT [facility] Microbiology ENTIRE THROAT (SURFACE REGION OF NECK) / Unknown Collection / Unknown 04/30/2021 6:33 AM CDT 04/30/2021 6:39 AM CDT Narrative [facility] - 04/30/2021 7:15 AM CDT Rapid test for Group A Beta Streptococcus is NEGATIVE. A Negative, Direct Test for Group A Streptococcus will be followed with a confirmatory Throat Culture when 2 swabs have been submitted. Madina Salazar PA-C LAB - MICROBIOL OGY ORDERABLES [facility] [address] [place] [address], [place] [phone] * (ABNORMAL) SARS-COV-2 (COVID-19)+INFLU A+B PCR RAPID (04/30/2021 6:33 AM CDT) Pathologist [facility] COVID-19 PCR Detected(AA) Not detected 04/30/20 7:13 AM [facility] Influenza A Rapid CATHERINE Not Detected Not Detected 04/30/2021 7:13 AM [facility] Influenza B CATHERINE Rapid Not Detected Not Detected 04/30/2021 7:13 AM [facility] Microbiology SPECIMEN FROM NASOPHARYNGEAL STRUCTURE / Unknown Collection / Unknown 04/30/2021 6:33 AM CDT 04/30/2021 6:39 AM CDT [facility] - 04/30/2021 7:13 AM CDT Samples with [...] acid amplification assay performance was validated by [facility]. This test has been authorized by the [...] Woodrow Luna MD LAB - MICROBIOLOGY O RDERABLES [facility] [address] [place] [address], [facility] [phone] * XR CHEST 1VW (04/30/2021 6:24 AM CDT) Anatomical Region Laterality Modality Chest Radiographic Vickie ging 04/30/2021 7:18 AM CDT Impressions 04/30/2021 10:23 AM CDT FINDINGS/IMPRESSION: There is no focal consolidation, pleural effusion, or pneumothorax. The cardiomediastinal silhouette is normal. The visible bony thorax is intact. Report dictated by Figueroa Zaragoza MD (compensation vice president). Dr. KAN Parsons have personally reviewed and interpreted this examination/study. This report was electronically signed by KAN DONIS ??on 04/30/2021 10:23 AM . Narrative 04/30/2021 10:23 AM CDT EXAMINATION: XR CHEST 1VW, 04/30/2021 6:24 AM HISTORY: R06.02: Shortness of breath COMPARISON: Chest x-ray dated 08/25/2015 Procedure Note Kan Donis MD - 04/30/2021 EXAMINATION: XR CHEST 1VW, 04/30/2021 6:24 AM HISTORY: R06.02: Shortness of breath COMPARISON: Chest x-ray dated 08/25/2015 FINDINGS/IMPRESSION: There is no focal consolidation, pleural effusion, or pneumothorax. The cardiomediastinal silhouette is normal. The visible bony thorax isintact. Report dictated by Figueroa Zaragoza MD (compensation vice president). Dr. KAN Parsons have personally reviewed and interpreted this examination/study. This report was electronically signed by KAN DONIS on 04/30/2021 10:23 AM . Madina Salazar PA-C DIAGNOSTIC IMAG ING ORDERABLES documented in this encounter Visit Diagnoses Diagnosis COVID-19 virus infection- Primary Shortness of breath Acute pharyngitis, unspecified etiology Elevated blood pressure reading Elevated blood pressure reading without diagnosis of hypertension COVID-19 Elevated blood-pressure reading, without diagnosis of hypertension documented in this encounter Administered Medications Inactive Administered Medications - up to 3 most recent administrations Medication Order MAR Action Action Date Dose Rate Site amLODIPine (Norvasc) tablet 10 mg 10 mg, Oral, DAILY, First dose on Thu04/30/21 at 0800, Until Discontinued $ Given 04/30/2021 7:55 AM CDT 10 mg hydrOXYzine hcl (Atarax) tablet 25 mg 25 mg, Oral, NOW, 1 dose, On Thu04/30/21 at 0615 $ Given 04/30/2021 6:52 AM CDT 25 mg documented in this encounter Active and Recently Administered Medications Times are shown in CDT. Scheduled Medication Order 04/28/2021 04/29/2021 04/30/2021 amLODIPine (Norvasc) tablet 10 mg 10 mg, Oral, DAILY, First dose on Thu04/30/21 at 0800, Until Discontinued 0755 ($ Given - Prov ider: Rita Terrazas RN) hydrOXYzine hcl (Atarax) tablet 25 mg (COMPLETED) 25 mg, Oral, NOW, 1 dose, On Thu04/30/21 at 0615 0652 ($ Given - Prov ider: Patsy Curtis RN) documented in this encounter Additional Health Concerns Infection Onset Date Last Indicated Resolved Time COVID-19 Under Investigation 04/30/2021 04/30/2021 04/30/2021 7:13 AM CDT COVID-19 Confirmed 04/30/2021 04/30/2021 4:33 AM CDT documented as of this encounter
--- OUTSIDE RECORDS SUMMARY | 2024-09-11 14:02 | XMS_ITS | Encounter Summary ---
Author Organization [facility] Address [address] [place] [address] Care Team Providers Care Logging Supervisor Name Role Phone Unavailable Primary Care Provider Unavailabl e Reason for Visit * Reason Comments Chest Pain Patient ambulates th rough triage with complains of chest pain that radiates down right arm with dizziness, pain start while working in the yard. Pain X3 years but worse recently * Auth/Cert Specialty Diagnoses / Procedures Referred By Salvador tripp Referred To Contact Referral ID Status Reason Start Date Expiration Date Visits Re quested Visits Authorized [id number] 1 1 Encounter Details Date Type Department Care Team (Latest Contact Info) Description 12/07/2021 11:50 AM CDT - 12/10/2021 4:57 PM CDT Hospital Encounter [facility]N ACUTE [facility] [place] [address] Olman Matthews MD [address] [facility] [place] [address] Cardiovascular Disease Discharge Disposition: Home or Self Care Social [...] Sign Reading Time Taken Comments Blood Pressure 147/79 12/10/2021 1:03 PM CDT Pulse 63 12/10/2021 1:03 PM CDT Temperature 36.5 ??C (97.7 ??F) 12/10/2021 1:03 PM CD T Respiratory Rate 18 12/10/2021 1:03 PM CDT Oxygen Saturation 98% 12/10/2021 10:53 AM CDT Inhaled Oxygen Concentration - - Weight 93.9 kg (207 lb) 12/07/2021 10:29 AM CDT Height 152.4 cm (5') 12/07/2021 10:29 AM CDT Body Mass Index 40.43 12/07/2021 10:29 AM CDT documented in this encounter Functional [...] 12/07/2021 documented as of this encounter Discharge Summaries * Zahira Oakes MD - 12/10/2021 11:08 AM CDT Physician Discharge Summary Patient ID: Michael Zavala [id number] 56 year old 1965 Admit date: 12/07/2021 Discharge date and time: 12/10/21 Admitting Physician: Olman Matthews MD Discharge Physician: Zahira Oakes MD Admission Diagnoses: NSTEMI, HLD, HTN Discharge Diagnoses: NSTEMI s/p PCI, HLD, HTN Admission Condition: Fair Discharged Condition: Good Indication for Admission: NSTEMI Hospital Course: 56 YO with HLD and HTN presenting for chest pain and found to have NSTEMI. Pt is s/p PCI of LAD. He had a hematoma of the RUE present after the procedure. He reported pain of the RUE. RUE ultrasound was normal. Pt discharged home with follow up. Consults: none Significant Diagnostic Studies: Cath:1) Successful PCI of 90% proximal LAD stenosis s/p Xience 3.5 x 15 mm WILLIAM Echo: The left ventricle is normal size. Left [...] or Doppler interrogation. No significant valvular abnormalities. Treatments: See hospital course Discharge Exam: General appearance: no distress Lungs: breath sounds normal; no rales, wheezes or rhonchi, breathing comfortably, not using accessory muscles to breath Heart: regular rate and rhythm, no murmurs Abdomen: soft, non-tender, non-distended, normal bowel sounds, no rebound MSK: moving all extremities Extremities: no edema Skin: no new rashes Neuro: alert and oriented Psychiatric: Cooperative Disposition: home Patient Instructions: Estimado Michael Zavala, Curso Hospitalario: Fue admitido el 07/12/2021 por ataque al coraz??n. Le colocaron un stent en las arterias coronarias. Precauciones de devoluci??n: Llame a gomes proveedor de atenci??n m??dica o vaya a la chiqui de emergencias si tiene fiebre de 100.4 ??F (38 ??C) o m??s, dolor incontrolable, sangrado, dificultad para respirar, dolor de pecho, n??useas o v??mitos incontrolables, dolor de navya intenso, confusi??n o cambio en el estado mental, convulsiones Lista de medicamentos: Si tiene alguna pregunta sobre zara medicamentos, aseg??rese de preguntar en la farmacia cuando recoja gomes receta. Tambi??n puede llamar a gomes proveedor primario si no est?? seguro si debe yissel gomes medicamento. Current Discharge Medication List START taking these medications Instructions Authorizing Provider acetaminophen 325 MG tablet Commonly known as: Tylenol Take 1 (one) tablet by mouth every 6 hours as needed Maximum allowable Acetaminophen amount = 4 Grams (4000 mg) / 24 hours. Melina Shultz MD aspirin 81 MG chew tablet Commonly known as: Aspirin Quantity Dispensed: 30 tablet Start taking on: December 11, 2021 Take 1 (one) tablet by mouth once daily Melina Shultz MD metoprolol succinate XL 24hr 25 MG tablet Commonly known as: Toprol XL Quantity Dispensed: 30 tablet Start taking on: December 11, 2021 Take 1 (one) tablet by mouth once daily Melina Shultz MD nitroGLYCERIN 0.4 MG tablet Commonly known as: Nitrostat Quantity Dispensed: 10 tablet Dissolve 1 (one) tablet under the tongue every 5 minutes as needed for Angina (Chest pain) Melina Shultz MD ticagrelor 90 MG tablet Commonly known as: Brilinta Quantity Dispensed: 60 tablet Take 1 (one) tablet by mouth 2 times daily Melina Shultz MD CONTINUE taking these medications which have NOT CHANGED Instructions Authorizing Provider amLODIPine 10 MG tablet Commonly known as: Norvasc Quantity Dispensed: 30 tablet Take 1 (one) tablet by mouth once daily Reasons: High Blood Pressure Disorder Madina Salazar PA-C ATORVASTATIN CALCIUM PO lisinopril 20 MG tablet Commonly known as: Prinivil; Zestril Take by mouth once daily omeprazole 10 MG capsule Commonly known as: PriLOSEC Take by mouth daily before breakfast Instrucciones de dieta: Colesterol bajo, sodio bajo Equipo: Es esencial que asista a todas zara citas de seguimiento y vaya a las citas con gomes m??dico seg??n loprogramado. Si no se guthrie programado un seguimiento con gomes proveedor de atenci??n primaria, debe programar tanvi anna para el seguimiento de gomes hospitalizaci??n dentro de 1 a 2 semanas. Si hay un conflicto, llame a la cl??emerald con anticipaci??n y reprograme la anna. Si necesita llamar al [facility] por cualquier motivo, puede comunicarse con nosotros al [phone] y marcar 0 para comunicarse con el operador. Art??culos de seguimiento: Anna en la cl??emerald Guzman en 1 semana Anna de cardiolog??a en 2 semanas. Torres por elegir [facility] para gomes atenci??n m??dica. Melina Shultz MD Internal Medicine 12/10/2021 3:12 PM Internal Medicine Department [facility] [address] [place] [address] Melina Shultz MD, 12/10/2021 at 11:08 AM Attending Physician's Note Patient was seen and examined with the house staff on 12/10/2021. I have discussed the pertinent information with the house staff and have reviewed all pertinent laboratory data and imaging studies. I agree with their assessment and discharge plan of care as outlined in the note above. Zahira Oakes MD Cardiology Attending documented in this encounter Discharge Instructions * Discharge Instructions* Melina Shultz MD - 12/10/2021 3:12 PM CDT Estimado Michael Zavala, Curso Hospitalario: Fue admitido el 07/12/2021 por ataque al coraz??n. Le colocaron un stent en las arterias coronarias. Precauciones de devoluci??n: Llame a gomes proveedor de atenci??n m??dica o vaya a la chiqui de emergencias si tiene fiebre de 100.4 ??F (38 ??C) o m??s, dolor incontrolable, sangrado, dificultad para respirar, dolor de pecho, n??useas o v??mitos incontrolables, dolor de navya intenso, confusi??n o cambio en el estado mental, convulsiones Lista de medicamentos: Si tiene alguna pregunta sobre zara medicamentos, aseg??rese de preguntar en la farmacia cuando recoja gomes receta. Tambi??n puede llamar a gomes proveedor primario si no est?? seguro si debe yissel gomes medicamento. Current Discharge Medication List START taking these medications Instructions Authorizing Provider acetaminophen 325 MG tablet Commonly known as: Tylenol Take 1 (one) tablet by mouth every 6 hours as needed Maximum allowable Acetaminophen amount = 4 Grams (4000 mg) / 24 hours. Melina Shultz MD aspirin 81 MG chew tablet Commonly known as: Aspirin Quantity Dispensed: 30 tablet Start taking on: December 11, 2021 Take 1 (one) tablet by mouth once daily Melina Shultz MD metoprolol succinate XL 24hr 25 MG tablet Commonly known as: Toprol XL Quantity Dispensed: 30 tablet Start taking on: December 11, 2021 Take 1 (one) tablet by mouth once daily Melina Shultz MD nitroGLYCERIN 0.4 MG tablet Commonly known as: Nitrostat Quantity Dispensed: 10 tablet Dissolve 1 (one) tablet under the tongue every 5 minutes as needed for Angina (Chest pain) Melina Shultz MD ticagrelor 90 MG tablet Commonly known as: Brilinta Quantity Dispensed: 60 tablet Take 1 (one) tablet by mouth 2 times daily Melina Shultz MD CONTINUE taking these medications which have NOT CHANGED Instructions Authorizing Provider amLODIPine 10 MG tablet Commonly known as: Norvasc Quantity Dispensed: 30 tablet Take 1 (one) tablet by mouth once daily Reasons: High Blood Pressure Disorder Madina Salazar PA-C ATORVASTATIN CALCIUM PO lisinopril 20 MG tablet Commonly known as: Prinivil; Zestril Take by mouth once daily omeprazole 10 MG capsule Commonly known as: PriLOSEC Take by mouth daily before breakfast Instrucciones de dieta: Colesterol bajo, sodio bajo Equipo: Es esencial que asista a todas zara citas de seguimiento y vaya a las citas con gomes m??dico seg??n loprogramado. Si no se guthrie programado un seguimiento con gomes proveedor de atenci??n primaria, debe programar tanvi anna para el seguimiento de gomes hospitalizaci??n dentro de 1 a 2 semanas. Si hay un conflicto, llame a la cl??emerald con anticipaci??n y reprograme la anna. Si necesita llamar al [facility] por cualquier motivo, puede comunicarse con nosotros al [phone] y marcar 0 para comunicarse con el operador. Art??culos de seguimiento: Anna en la cl??emerald Guzman en 1 semana Anna de cardiolog??a en 2 semanas. Torres por elegir [facility] para gomes atenci??n m??dica. Melina Shultz MD Internal Medicine 12/10/2021 3:12 PM Internal Medicine Department [facility] [address] [place] [address] documented in this encounter Medications at Time [...] 30 tablet 3 12/11/2021 ATORVASTATIN CALCIUM PO lisinopril-hydroCHLO ROthiazide (Prinzide; Zestoretic) 10-12.5 MG tablet [...] Blood Pressure Disorder 30 tablet 04/30/2021 07/18/2022 lisinopril (PRINIVIL; ZESTRIL) 20 MG tablet Take by mouth once daily 07/18/2022 metoprolol succinate XL 24hr (TOPROL XL) 25 MG tablet Take 1 (one) tablet by mouth once daily 30 tablet 3 12/11/2021 01/22/2022 ticagrelor (BRILINTA) 90 MG tablet Take 1 (one) tablet by mouth 2 times daily 60 tablet 3 12/10/2021 01/22/2022 documented as of this encounter Progress Notes * Liliana Izaguirre - 12/10/2021 4:57 PM CDT Discharge pharmacy scheduler received a request from Ferny Pearson to schedule an appointment with Cardiology and PCP. As this patient is uninsured this request has been sent to the [facility] ELSA Wheeler. The patient'schart will be updated once an appointment has been made. No further discharge pharmacy scheduler needs at this time. Liliana Izaguirre 12/12/2021 * Kiel Gama CPhT - 12/10/2021 4:30 PM CDT MEDICATION TO BEDSIDE DELIVERY: COMPLETE Medication to Bedside delivery was completed for Michael Zavala. ??? A total of 4 prescriptions were delivered to the patient for discharge. ??? Medications were given to NURSE (liberty) ??? This delivery included a controlled substance: NO ??? This delivery included medication that should be stored in the fridge: NO Thank you for allowing the outpatient pharmacy to participate in the care of Michael Zavala. If you have any questions, please contact the outpatient pharmacy at [phone]. Kiel Gama CPhT [facility] at [address], [address] [place], [place] [address] Hours of Operation Thursday - Thursday: 8:00am to 6:00pm Thursday: 9:00am to 1:00pm Epic: [facility] *Ensure the patient and clinic's nearby ZIP codes box is unchecked* * Zahira Oakes MD - 12/10/2021 3:28 PM CDT Medicine Inpatient Progress Note 12/10/21 3:28 PM Subjective: Per Dr. Last with my additions: Michael Goodwin is a 56 year old male with PMH of hyperlipidemia, HTN and GERD who presents to the ED with a chief complaint of chest pain. 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 Patient reports that pain lasted about 30 minutes and got marginally better with rest. In the ER, patient was noted to be have elevated troponins however did not have any ST depressions or DOREEN on EKG. Patient was given a nitroglycerin tablet which improved his pain significantly however his BP dropped to the 90s/60s however he remained asymptomatic. Patient has remained symptom free since presentation and is on heparin gtt,asa, brilinta, metoprolol with plan for LHC and TTE on 12/09. Interval: Pt is s/p PCI to proximal LAD using 1 WILLIAM. Pt had hematoma on 12/09 on RUE, continues to report RUE but decreasing. He also reported an episode of chest pain on 12/09 which has since resolved. OBJECTIVE: Temp: [97.2 ??F (36.2 ??C)-98.4 ??F (36.9 ??C)] 97.7 ??F (36.5 ??C) Pulse: [62-74] 63 Resp: [18-20] 18 BP: (129-147)/(75-85) 147/79 Intake/Output Summary (Last 24 hours) at 12/10/2021 1528 Last data filed at 12/10/2021 0800 Gross per 24 hour Intake 840 ml Output 0 ml Net 840 ml Physical Exam: General - Appears stated age, NAD, afebrile HEENT - NC/AT, clear conjunctivae Chest - CTAB no w/c/r/r, no use of accessory muscles CV - RRR, normal S1,S2, no m/r/g Abdomen - Soft, mildly tender periumbicial/ND, +BS, no organomegaly Musculoskeletal - Moves all four extremities Extremities - No peripheral edema, cyanosis, clubbing Skin - No rashes, lesions, petichiae/ecchymoses, or jaundice Neurologic - A&O, no gross focal deficits noted Psych - Appropriate mood and affect Data Review: Echo 12/09 The left ventricle is normal size. Left [...] or Doppler interrogation. No significant valvular abnormalities. WBC 11.2 from 8.6 ASSESSMENT & PLAN: Michael Goodwin is a 56 year old male with PMH of hyperlipidemia, HTN and GERD who presents to the ED with a chief complaint of chest pain s/p NSTEMI and PCI. #NSTEMI #HLD #HTN -Episode of chest pain with activity; relieved by nitro in the ED along with associated trop elevation -SOLO score 2 -S/p heparin gtt, ASA and brilinta loaded -PCI of proximal LAD using 1 WILLIAM Plan: -Continue ASA and brilinta for 24 months -Continue atorvastatin -Continue metoprolol succinate 25 mg qday -Continue home amlodipine 10 mg qday and lisinopril 20 mg qday #RUE hematoma -Hematoma present after LHC; pt had pain of his RUE; currently crampy pain -Preliminary US WNL #GERD -Pantoprazole qday #Hyperglycemia -A1c 5.5 #DYLAN (resolved) -Cr 1.09 now down from 1.40 # FEN - Fluids: None - Electrolytes: Monitor and replete as necessary. - Nutrition: Cardiac diet - DVT ppx: Enoxaparin # Code Status - Full Code Pt to be discussed with attending Melina Shultz MD PGY-2, Internal Medicine 12/10/21 3:28 PM Attending Physician's Note Patient was seen and examined with the house staff on 12/10/2021. I have discussed the pertinent information with the house staff and have reviewed all pertinent laboratory data and imaging studies. I agree with their assessment and plan of care as outlined in the note above. Zahira Oakes MD Cardiology Attending * Justo Royal RN - 12/10/2021 2:22 PM CDT Problem: Fall Risk Goal: Fall risk and fall related injury risk are minimized (interventions related to the fall risk can be found in the flowsheet documentation) Outcome: Progressing Problem: Hemodynamic Status/Cardiac Output Goal: Patient has stable vital signs and fluid balance Outcome: Progressing Problem: Ineffective Communication Related to Language Barrier Goal: Able to express needs and understand communications. Outcome: Progressing Problem: Discharge Planning Goal: Patient's continuum of care needs are met Outcome: Progressing Problem: Pain/Discomfort Goal: Patient exhibits reduced pain/discomfort as evidenced by pain scores Outcome: Progressing Goal: Patient uses pharmacological and non-pharmacological pain management strategies. Outcome: Progressing Goal: Patient verbalizes acceptable level of pain relief and ability to engage in desired activity. Outcome: Progressing Goal: Patient will have minimal complaints of pain. Summary: Patient stated that his pain has reduced and is no longer continuous. Patient state that his pain now comes and goes, but is tolerable. Will continue with prescribed pain interventions as well as cardiac monitoring and monitor patient. * Justo Royal RN - 12/10/2021 11:00 AM CDT Morning assessment conducted using emergency medical dispatcher [employer] Sewing Machine Operator [id number]. Per Royal RN * Aleksandra Gonzalez RN - 12/10/2021 3:08 AM CDT Problem: Fall Risk Goal: Fall risk and fall related injury risk are minimized (interventions related to the fall risk can be found in the flowsheet documentation) Outcome: Progressing Problem: Hemodynamic Status/Cardiac Output Goal: Patient has stable vital signs and fluid balance Outcome: Progressing Problem: Ineffective Communication Related to Language Barrier Goal: Able to express needs and understand communications. Outcome: Progressing Problem: Discharge Planning Goal: Patient's continuum of care needs are met Outcome: Progressing Problem: Pain/Discomfort Goal: Patient exhibits reduced pain/discomfort as evidenced by pain scores Outcome: Progressing Goal: Patient uses pharmacological and non-pharmacological pain management strategies. Outcome: Progressing Goal: Patient verbalizes acceptable level of pain relief and ability to engage in desired activity. Outcome: Progressing * Apple Woo RN - 12/09/2021 4:07 PM CDT A Chart Review has been conducted by Case Management. Anticipated level of care at discharge: Home Discharge Plan: Discharge to home Basic Needs Assessment (BNA) Score: 6 Anticipated Discharge Date: 12/11/21 PCP: No primary care provider on file. Per nursing assessment Transportation at discharge: Family Transportation (who): Family Warehouse Shipping Clerk/Support: Warehouse Shipping Clerk/Support Person - Relationship:: Waldo Rodriguez Warehouse Shipping Clerk person: Warehouse Shipping Clerk/Support Person Contact #: Home/Functional Status: Functional and Cognitive Status Is person deaf or have serious hearing difficulty?: No Is person blind or have serious difficulty seeing?: No Does person have serious difficulty walking/climbing stairs?: No Does person have difficulty dressing/bathing?: No Does person have difficulty doing errands alone?: No Does person have difficulty concentrating/remembering/making decisions?: No Equipment with patient: None Assistive Devices: None ?. Will continue to follow. For any questions or needs please contact: Multiple Sclerosis Nurse Name/Phone number: Apple Woo RN [phone] * Rachael Michele RN - 12/09/2021 2:48 PM CDT Pt received back From laboratory associate by charge nurse Jerardo. 1430 rt wrist TR band intact with 14cc air per report. Cap refill brisk. SILT. NVC's WDL. Pt instructed via emergency medical dispatcher to keep RUE still and straight. Pt voiced understanding. 1445 2 cc's air removed. No bleeding noted. Pt c/o pain @ insertion site and rt shoulder Rates pain 4/10. Slight swelling noted above insertion site. Dr Last notified. 1500 2 more cc's air removed. No bleeding noted. Pt c/o pain @ insertion site and rt shoulder. Rates pain 4/10. Slight swelling noted above insertion site. No response from Dr. Last. Cardiology called. Stated will take a look into it. 1515 4 more cc's air removed. No bleeding noted but approx 4cm swelling above insertion site noted No change in pt's status. 1541 Pt c/o increased pain10/10. All air removed. Pt states air removal does not relieve pain. Cardiology called. Dr. Allen @ pt's BS within [address] Allen assessed pt and held pressure @ insertion site. Pt reported some relief. Ice pack applied. Stayed @ pt's BS x's1 hour 1720 TR band applied with [address] Allen. Ice pack also applied. Pt states pain 4/10 1830 Cardiology resident called this engineering technical writer and stated ok to remove TR band in 1 hour. Instruct pt to keep arm still and straight unitl morning. Hematoma swelling decreasing along with pt's report ofpain. * Olman Matthews MD - 12/09/2021 12:51 PM CDT I performed coronary angiography on Michael Zavala who presented to us with chest pain and NSTEMI. Angiography showed high grade prox LAD (90% with haziness). I performed PCI of prox LAD using 1 WILLIAM. I suggest aspirin indefinitely and Brilinta for 24 months. * Melodie Turner RN - 12/09/2021 12:42 PM CDT [id number], md aware * Melodie Turner RN - 12/09/2021 12:05 PM CDT Doctor at bedside performing assessment immediately prior to the start of sedation. Physician confirms that no changes in Pre Sedation assessment have occurred. Ok to continue with procedure under moderate sedation as planned. * Rachael Michele RN - 12/09/2021 8:44 AM CDT Problem: Hemodynamic Status/Cardiac Output Goal: Patient has stable vital signs and fluid balance Outcome: Progressing Problem: Discharge Planning Goal: Patient's continuum of care needs are met Outcome: Progressing Problem: Pain/Discomfort Goal: Patient exhibits reduced pain/discomfort as evidenced by pain scores Outcome: Progressing Goal: Patient uses pharmacological and non-pharmacological pain management strategies. Outcome: Progressing Goal: Patient verbalizes acceptable level of pain relief and ability to engage in desired activity. Outcome: Progressing * Zahira Oakes MD - 12/09/2021 7:42 AM CDT Medicine Inpatient Progress Note 12/09/21 7:42 AM Subjective: Per Dr. Last with my additions: Michael Goodwin is a 56 year old male with PMH of hyperlipidemia, HTN and GERD who presents to the ED with a chief complaint of chest pain. 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 Patient reports that pain lasted about 30 minutes and got marginally better with rest. In the ER, patient was noted to be have elevated troponins however did not have any ST depressions or DOREEN on EKG. Patient was given a nitroglycerin tablet which improved his pain significantly however his BP dropped to the 90s/60s however he remained asymptomatic. Patient has remained symptom free since presentation and is on heparin gtt,asa, brilinta, metoprolol with plan for LHC and TTE on 12/09. Interval: Pt denies chest pain today; LHC PCI of prox LAD using 1 WILLIAM; ASA and brilinta for 24 month recommended. OBJECTIVE: Temp: [97.6 ??F (36.4 ??C)-98 ??F (36.7 ??C)] 97.9 ??F (36.6 ??C) Pulse: [66-78] 72 Resp: [18] 18 BP: (89-124)/(67-76) 124/76 No intake or output data in the 24 hours ending 12/09/21 0742 Physical Exam: General - Appears stated age, NAD, afebrile HEENT - NC/AT, clear conjunctivae Chest - CTAB no w/c/r/r, no use of accessory muscles CV - RRR, normal S1,S2, no m/r/g Abdomen - Soft, mildly tender periumbicial/ND, +BS, no organomegaly Musculoskeletal - Moves all four extremities Extremities - No peripheral edema, cyanosis, clubbing Skin - No rashes, lesions, petichiae/ecchymoses, or jaundice Neurologic - A&O, no gross focal deficits noted Psych - Appropriate mood and affect Data Review: Echo 12/09 The left ventricle is normal size. Left [...] or Doppler interrogation. No significant valvular abnormalities. Cr 1.14 from 10.03 ASSESSMENT & PLAN: Michael Goodwin is a 56 year old male with PMH of hyperlipidemia, HTN and GERD who presents to the ED with a chief complaint of chest pain s/p NSTEMI and PCI. #NSTEMI #HLD #HTN -Episode of chest pain with activity; relieved by nitro in the ED along with associated trop elevation -SOLO score 2 -S/p heparin gtt, ASA and brilinta loaded -PCI of proximal LAD using 1 WILLIAM Plan: -Continue ASA and brilinta for 24 months -Continue atorvastatin -Continue metoprolol succinate 25 mg qday -Consider restarting home amlodipine; hold lisinopril for DYLAN #GERD -Pantoprazole qday #Hyperglycemia -A1c 5.5 #DYLAN vs CKD -Cr 1.14 from 1.20; BL 0.9 Plan: -Holding lisinopril for now # FEN - Fluids: None - Electrolytes: Monitor and replete as necessary. - Nutrition: Cardiac diet - DVT ppx: Enoxaparin # Code Status - Full Code Pt to be discussed with attending Melina Shultz MD PGY-2, Internal Medicine 12/09/21 7:42 AM Attending Physician's Note Patient was seen and examined with the house staff on 12/09/2021. I have discussed the pertinent information with the house staff and have reviewed all pertinent laboratory data and imaging studies. I agree with their assessment and plan of care as outlined in the note above. Zahira Oakes MD Cardiology Attending * Aleksandra Gonzalez RN - 12/09/2021 6:37 AM CDT Problem: Fall Risk Goal: Fall risk and fall related injury risk are minimized (interventions related to the fall risk can be found in the flowsheet documentation) Outcome: Progressing Problem: Hemodynamic Status/Cardiac Output Goal: Patient has stable vital signs and fluid balance Outcome: Progressing Problem: Ineffective Communication Related to Language Barrier Goal: Able to express needs and understand communications. Outcome: Progressing Problem: Discharge Planning Goal: Patient's continuum of care needs are met Outcome: Progressing Problem: Pain/Discomfort Goal: Patient exhibits reduced pain/discomfort as evidenced by pain scores Outcome: Progressing Goal: Patient uses pharmacological and non-pharmacological pain management strategies. Outcome: Progressing Goal: Patient verbalizes acceptable level of pain relief and ability to engage in desired activity. Outcome: Progressing * Kyung Last MD - 12/08/2021 12:32 PM CDT Cardiology Inpatient Progress Note 12/08/21 12:32 PM Subjective: Interval History: NAEON. Patient denies any chest pain overnight or this AM. Patient has remained hemodynamically stable. Patient has not had any SOB, dyspnea, orthopnea, lightheadedness or palpitations overnight. Complete hospital course at end of note. OBJECTIVE: Temp: [97.6 ??F (36.4 ??C)-98.4 ??F (36.9 ??C)] 98 ??F (36.7 ??C) Pulse: [66-85] 78 Resp: [18-20] 18 BP: (89-137)/(52-82) 116/70 Intake/Output Summary (Last 24 hours) at 12/08/2021 1232 Last data filed at 12/08/2021 0357 Gross per 24 hour Intake 240 ml Output 800 ml Net -560 ml Physical Exam: GEN No acute distress. HEENT NCAT, PERRL. EOMI. Sclera anicteric. Oropharynx with no erythema/exudates. Moist mucous membranes. NECK Supple, no lymphadenopathy, No JVD CHEST CTAB HEART RRR, Normal S1, S2. No murmurs/rubs/gallops. ABD Soft, NT, ND, +BS. BACK No CVA tenderness. No scoliosis EXT No clubbing, cyanosis or edema. NEURO A&Ox3, and appropriately interactive. Moving all extremities with no focal neurologic deficits. Data Review: CBC: Recent Labs Component Name 12/08/21 0200 12/07/21 1352 12/07/21 1058 07/11/15 0225 07/10/15 0740 WBC 9.1 9.1 7.9 9.6 7.8 HGB 14.5 15.1 14.5 14.5 14.6 BMP: Recent Labs Component Name 12/08/21 0200 12/07/21 1058 07/11/15 0240 07/10/15 0740 NA 142 140 141 141 POTASSIUM 4.3 4.1 3.6 4.0 CL 107 107 107 108* CO2 22 19* 24 24 BUN 17 20 13 14 CREATININE 1.20* 1.20* 0.9 0.9 Recent Labs Component Name 12/08/21 0200 12/07/21 1058 07/11/15 0240 07/10/15 0740 CALCIUM 9.2 9.2 9.1 8.9 MAGNESIUM 2.4 - 2.2 - PHOS 4.2 - 4.6 - LFT: Recent Labs Component Name 12/07/21 1058 07/10/15 0740 PROT 7.3 7.1 ALB 4.1 3.4 TBILI 1.3* 1.0 ALKPHOS 93 92 AST 25 34 ALT 31 42 Coagulation: Recent Labs Component Name 12/08/21 0200 12/07/21 1352 07/10/15 0740 PT 13.6 12.5 12.3 INR 1.1 1.0 0.9 Cardiac markers: Recent Labs Component Name 12/07/21 2203 12/07/21 1641 12/07/21 1352 12/07/21 1058 07/10/15 0740 TROPONINI 0.136* 0.167* 0.157* 0.137* <0.010 Microbiology: Microbiology Results (Displays last 21 days for this encounter ONLY) No results found for the last 504 hours. Imaging: No results found. Current Medications: ??? 0.9% NaCl 3 mL Intracatheter q8h ??? aspirin 81 mg Oral QDAY ??? atorvastatin 80 mg Oral AT BEDTIME ??? metoprolol succinate XL 24hr 25 mg Oral QDAY ??? pantoprazole EC 40 mg Oral QDAY ??? ticagrelor 90 mg Oral BID PRN Medications: ??? SALINE LOCK, INSERT AND MAINTAIN AND 0.9% NaCl AND 0.9% NaCl ??? heparin 100 units/mL ??? nitroGLYCERIN ASSESSMENT & PLAN: Assessment and Plan: Michael Zavala is a 56 year old male with PMH of hyperlipidemia, HTN and GERD who presents to the ED with a chief complaint of chest pain. ?? #NSTEMI #Hyperlipidemia #HTN - episode of chest pain with activity, relieved by nitroglycerin in the ED, along with associated troponin elevation - SOLO score 2 - presentation concerning for NSTEMI given risk factors. - heparin gtt, asa, brilinta loaded - atorvastatin - started metoprolol succinate 25 - TTE and LHC planned for Thursday at this time ?? #GERD - protonix qd ?? #Hyperglycemia - A1C pending ?? #?DYLAN vs CKD - last known creatinine 0.9 - unclear etiology, patient has been on lisinopril at home however could be related to uncontrolledHTN in the past - holding lisinopril - monitor with daily BMPs, urine studies # FEN - Fluids: None - Electrolytes: Monitor and replete as necessary. - Nutrition: cardiac diet, NPO at MN # Prophylaxis - heparin gtt # Code Status - Full Code # Disposition - cardiology floor Hospital Course: Michael Zavala is a 56 year old male with PMH of hyperlipidemia, HTN and GERD who presents to the ED with a chief complaint of chest pain. 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 Patient reports that pain lasted about 30 minutes and got marginally better with rest. In the ER, patient was noted to be have elevated troponins however did not have any ST depressions or DOREEN on EKG. Patient was given a nitroglycerin tablet which improved his pain significantly however his BP dropped to the 90s/60s however heremained asymptomatic. Patient has remained symptom free since presentation and is on heparin gtt, asa, brilinta, metoprolol with plan for LHC and TTE on 12/09. Pt will be discussed with attending, Dr. Matthews. Kyung Last MD Internal Medicine PGY-1 [facility] 12/08/2021 12:32 PM Associated attestation - Olman Matthews MD - 12/09/2021 8:48 AM CDT I have seen and examined the patient with the resident and I agree with the findings and plan of care as documented by the resident. Date of Service: 12/08/21 Olman Matthews MD * Aleksandra Gonzalez RN - 12/08/2021 2:35 AM CDT Problem: Fall Risk Goal: Fall risk and fall related injury risk are minimized (interventions related to the fall risk can be found in the flowsheet documentation) Outcome: Progressing Problem: Hemodynamic Status/Cardiac Output Goal: Patient has stable vital signs and fluid balance Outcome: Progressing Problem: Ineffective Communication Related to Language Barrier Goal: Able to express needs and understand communications. Outcome: Progressing Problem: Discharge Planning Goal: Patient's continuum of care needs are met Outcome: Progressing Problem: Pain/Discomfort Goal: Patient exhibits reduced pain/discomfort as evidenced by pain scores Outcome: Progressing Problem: Pain/Discomfort Goal: Patient exhibits reduced pain/discomfort as evidenced by pain scores Outcome: Progressing Goal: Patient uses pharmacological and non-pharmacological pain management strategies. Outcome: Progressing Goal: Patient verbalizes acceptable level of pain relief and ability to engage in desired activity. Outcome: Progressing documented in this encounter H&P Notes * Hammad Blevins MD - 12/09/2021 7:36 AM CDT CARDIAC SHIP RIGGER PRE PROCEDURE APPROPRIATE USE CRITERIA TOOL History of Present Illness: Patient is a 56 year old male with past medical history of hyperlipidemia, hypertension and GERD, going for left heart cath for NSTEMI. Heart Failure: No Stress Test Preformed: None Home Med List: Medications Prior to Admission Medication Sig Dispense Refill ??? amLODIPine (NORVASC) 10 MG tablet Take 1 (one) tablet by mouth once daily Reasons: High Blood Pressure Disorder 30 tablet 0 ??? ATORVASTATIN CALCIUM PO ??? lisinopril (PRINIVIL; ZESTRIL) 20 MG tablet Take by mouth once daily ??? omeprazole (PRILOSEC) 10 MG capsule Take by mouth daily before breakfast Anti-Anginal Medication within 2 Weeks: No Past Medical & Surgical History Illnesses: Past Medical History: Diagnosis Date ??? GERD (gastroesophageal reflux disease) ??? HTN (hypertension) ??? Hyperlipidemia No past surgical history on file. No Known Allergies This patient's prior H&P was reviewed, the patient was examined, and no change has occurred in the patient's condition since the prior H&P was completed. Consent: Risk, benefits and alternatives were discussed with patient and consent for procedure was obtained. Airway: Mallampati II (soft palate, uvula, fauces visible) ASA Class: {Class 3 - Severe Systemic Disease, Definite Functional Limitations Impression/Cardiac Catheterization Indication(Choose all that apply): Acute Coronary Syndrome greater than [address] Elevation - Acute Coronary Chest Pain Symptom Assessment: Typical Angina Cardiac Instability: No Procedure Acuity Status: Urgent Planned Course of Treatment/Procedure: Coronary angiography, Left Heart Cath and Percutaneous Coronary Intervention Sedation: Fentanyl and Versed Expected Level: Minimal anxiolysis Indication: Sedation is required to allow for performance of procedure. Monitoring: heart rate, equipment monitor phototypesetting, continuous pulse oximetry, frequent blood pressure checks,level of consciousness, IV access, constant attendance by RN until patient recovered, and emergencyairway equipment available. Based on the above criteria, I believe that patient meets clinical indications for a cardiac catheterization. Hammad Brooks MD 12/09/2021 7:36 AM * Kyung Last MD - 12/07/2021 1:53 PM CDT CARDIOLOGY ADMISSION NOTE Name: Michael Zavala Admit Date and Time: 12/07/2021 11:50 AM Room:[facility] PCP: No primary care provider on file. Chief Complaint: Chief Complaint Patient presents with ??? Chest Pain Patient ambulates through triage with complains of chest pain that radiates down right arm with dizziness, pain start while working in the yard. Pain X3 years but worse recently HPI: Michael Zavala is a 56 year old male with PMH of hyperlipidemia, HTN and GERD who presents to the ED with a chief complaint of chest pain. 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 Patient reports that pain lasted about 30 minutes and got marginally better with rest. Patient reports that he has had a few episodes like this in the past about 3 years ago and was never evaluated for these. Patient reports that pain radiated to his arms and his neck. Patient denies any exacerbating factors. Denies any associated symptoms such as SOB, dyspnea, diaphoresis, nausea, vomiting or abdominal pain. Patient reports that the pain was a lot worse today than it was 3 years ago and thus decided to come into the ED. In the ER, patient was noted to be have elevated troponins however did not have any ST depressions or DOREEN on EKG. Patient was given a nitroglycerin tablet which improved his pain significantly however his BP dropped to the 90s/60s however he remained asymptomatic. Upon interview patient's chest pain has resolved after the nitro. Denies any ongoing symptoms at this time. Medications 0.9% NaCl injection 3 mL (3 mL Intracatheter $ Given 12/07/21 1353) And 0.9% NaCl injection 1-10 mL (has no administration in time range) nitroGLYCERIN (Nitrostat) tablet 0.4 mg (0.4 mg Sublingual $ Given 12/07/21 1225) metoprolol succinate XL 24hr (Toprol XL) tablet 25 mg (25 mg Oral $ Given 12/07/21 1327) heparin 100 units/mL in dextrose 5 % infusion (1,000 Units/hr Intravenous $ New Bag 12/07/21 1358) heparin 100 units/mL bolus from bag (has no administration in time range) atorvastatin (Lipitor) tablet 80 mg (has no administration in time range) aspirin chew tablet 81 mg (has no administration in time range) ticagrelor (Brilinta) tablet 90 mg (has no administration in time range) glucose (Diabetic Use) (Dex4 Glucose) oral liquid (has no administration in time range) glucose (Diabetic Use) oral gel (has no administration in time range) glucose chew tablet 4 tablet (has no administration in time range) dextrose IV 12.5 g (has no administration in time range) Or dextrose IV 25 g (has no administration in time range) glucagon (Glucagen) injection 1 mg (has no administration in time range) insulin lispro (HumaLOG;ADMelog) 100 UNIT/ML pen 0-6 Units (0 Units Subcutaneous Not Administered 12/07/21 1836) aspirin chew tablet 324 mg (324 mg Oral $ Given 12/07/21 1217) ticagrelor (Brilinta) tablet 180 mg (180 mg Oral $ Given 12/07/21 1327) heparin 100 units/mL bolus from bag (4,000 Units Intravenous Bolus From Bag 12/07/21 1358) ROS (+ in bold) GEN: Change in weight, appetite, fever, chills, night sweats Ear/Nose: Rhinitis, epistaxis, hearing changes Throat: Sore throat, dysphagia RESP: Cough, sputum, shortness of breath CARDIAC: Chest pain, palpitations, HUDSON, orthopnea, edema GI: Nausea/vomiting, abdominal pain, diarrhea, constipation, : Urinary frequency, urgency, dysuria Genitalia: Sores, discharge M/S: Arthralgias, myalgias, swelling Heme: Bleeding, bruising SKIN: Rash, pruritis, erythema NEURO: Headache, visual changes Home Meds No current facility-administered medications on file prior to encounter. Current Outpatient Medications on File Prior to Encounter Medication Sig Dispense Refill ??? amLODIPine (NORVASC) 10 MG tablet Take 1 (one) tablet by mouth once daily Reasons: High Blood Pressure Disorder 30 tablet 0 ??? ATORVASTATIN CALCIUM PO ??? lisinopril (PRINIVIL; ZESTRIL) 20 MG tablet Take by mouth once daily ??? omeprazole (PRILOSEC) 10 MG capsule Take by mouth daily before breakfast Past Medical History Past Medical History: Diagnosis Date ??? GERD (gastroesophageal reflux disease) ??? HTN (hypertension) ??? Hyperlipidemia Past Surgical History No past surgical history on file. Non contributory Allergies No Known Allergies Family History Family History Family history unknown: Yes Heart disease in both maternal and paternal sides, patient unclear on etiology or further details of conditions. Social History Social History Tobacco Use ??? Smoking status: Never Smoker ??? Smokeless tobacco: Never Used Vaping Use ??? Vaping Use: Never used Substance Use Topics ??? Alcohol use: Yes Alcohol/week: 5.8 standard drinks ??? Drug use: No Objective: BP 124/71 Pulse 67 Temp 97.8 ??F (36.6 ??C) Resp 20 Ht 1.524 m (5') Wt 93.9 kg (207 lb) SpO2 99% BMI 40.43 kg/m2 Estimated body mass index is 40.43 kg/m?? as calculated from the following: Height as of this encounter: 1.524 m (5'). Weight as of this encounter: 93.9 kg (207 lb). Exam GEN No acute distress. HEENT NCAT, PERRL. EOMI. Sclera anicteric. Oropharynx with no erythema/exudates. Moist mucous membranes. NECK Supple, no lymphadenopathy, No JVD CHEST CTAB HEART RRR, Normal S1, S2. No murmurs/rubs/gallops. ABD Soft, NT, ND, +BS. BACK No CVA tenderness. No scoliosis EXT No clubbing, cyanosis or edema. NEURO A&Ox3, and appropriately interactive. Moving all extremities with no focal neurologic deficits. Data Review Recent Labs Component Name 12/07/21 1352 12/07/21 1058 07/11/15 0225 WBC 9.1 7.9 9.6 HGB 15.1 14.5 14.5 HCT 44.9 43.5 41.6 MCV 92.0 89.9 89.1 Recent Labs Component Name 12/07/21 1058 07/11/15 0240 07/10/15 0740 CALCIUM 9.2 9.1 8.9 PHOS - 4.6 - Recent Labs Component Name 12/07/21 1058 07/11/15 0240 07/10/15 0740 NA 140 141 141 CL 107 107 108* CO2 19* 24 24 BUN 20 13 14 CREATININE 1.20* 0.9 0.9 Recent Labs Component Name 12/07/21 1058 07/10/15 0740 PROT 7.3 7.1 ALB 4.1 3.4 ALKPHOS 93 92 AST 25 34 ALT 31 42 TBILI 1.3* 1.0 Recent Labs Component Name 12/07/21 1352 07/10/15 0740 PT 12.5 12.3 INR 1.0 0.9 PTT 24.0 24.5 Recent Labs Component Name 12/07/21 1641 12/07/21 1352 12/07/21 1058 TROPONINI 0.167* 0.157* 0.137* ECG: Normal rate and rhythm at 73 bpm. Normal axis and intervals. No ST-T changes. Radiology No results found. Microbiology Microbiology Results (Displays last 21 days for this encounter ONLY) No results found for the last 504 hours. Assessment and Plan: Michael Zavala is a 56 year old male with PMH of hyperlipidemia, HTN and GERD who presents to the ED with a chief complaint of chest pain. #NSTEMI #Hyperlipidemia #HTN - episode of chest pain with activity, relieved by nitroglycerin in the ED, along with associated troponin elevation - SOLO score 2 - presentation concerning for NSTEMI given risk factors. - heparin gtt, asa, brilinta loaded - atorvastatin - started metoprolol succinate 25 - TTE and LHC planned for Thursday at this time #GERD - protonix qd #Hyperglycemia - BG elevated on BMP - A1C in AM - SSI + accuchecks #DYLAN - last known creatinine 0.9 - unclear etiology, patient has been on lisinopril at home - holding lisinopril - monitor with daily BMPs, will consider urine studies, fluid bolus F/E/N F: None E: Replete as needed to keep Mg >2, Phos >3, K >4 N: Cardiac Diet Lines: PIV Activity: ad crys Prophylaxis: heparin gtt Dispo: inpatient, PT/OT Code status: Full code Pt will be discussed with attending, Dr. Matthews. Kyung Last MD Internal Medicine PGY-1 [facility] 12/07/2021 7:29 PM Associated attestation - Olman Matthews MD - 12/09/2021 9:03 AM CDT I have seen and examined the patient with the resident and I agree with the findings and plan of care as documented by the resident. 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 Response: Vital signs stable, airway patent and O2 saturations greater than 92%. Patient Status Post Procedure: Activity: Able to move four extremities voluntarily on command = 2 Respiration: Able to breathe deeply and cough freely = 2 Circulation: Blood pressure +/- 20mm Hg of normal = 2 Consciousness: Fully awake =2 Color: 2 - color is WNL Laya Score: 8 Temperature: Normalthermic Pain: 0 Post sedation nausea & vomiting present: no nausea and no vomiting Post-sedation hydration status Is adequate: Yes Total Physician Drug Administration / Monitoring Time: 48 minutes. Patient was monitored during recovery and returned to pre-procedure baseline. Discharge plan: Telemetry * Hammad Blevins MD - 12/09/2021 7:37 AM CDT PRE-SEDATION PHYSICIAN ASSESSMENT Date: 12/09/2021 Time: 7:38 AM Michael Zavala is a 56 year old male Pre-procedure diagnosis: Acute Coronary Syndrome Planned Procedure: Coronary angiography, Left Heart Cath, Percutaneous Coronary Intervention Medications, vital signs and labs results reviewed prior to procedure: Yes No Known Allergies SEDATION PLAN: moderate ASA Physical Status Classification: 3 (A patient with severe systemic disease) Mallampati Airway Classifications II (soft palate, uvula, fauces visible) Other indicators of a difficult intubation include: Obesity Patient airway and condition has been evaluated immediately prior to sedation and/or analgesia: Yes documented in this encounter OR Notes * Brief Op Note - Mariella Little MD - 12/09/2021 1:01 PM CDT Brief Op Note Procedure: Coronary angiogram + PCI Patient Name: Michael Zavala Date of Service: 12/09/2021 Pre-Op Diagnosis: NSTEMI Post-Op Diagnosis: 90% prox LAD s/p 1x WILLIAM PCI Maynard: Mariella Little MD Attending: Olman Matthews MD Anesthesia Type: Moderate sedation. Start time - 12:05pm. End time - 12:53pm. Lidocaine 1% 4ml subcutaneously. Fentanyl 50mcg IV in divided doses. Versed 2mg IV in divided doses. Benadryl 0mg IV in divided doses. Complications: none Access: right radial artery Findings: 90% proximal LAD Contrast total (Isovue 370): 110 ml EBL: minimal blood loss Specimen(s): None Mariella Little MD Interventional Utility Person 12/09/2021 documented in this encounter ED Notes * Vicky Yoon RN - 12/07/2021 2:01 PM CDT Report called awaiting transportation * Woodrow Martinez MD - 12/07/2021 12:17 PM CDT ED ATTENDING NOTE Patient seen with Ken Foreman PA-C. Methods And Procedures Analyst used to speak to Syriac-speaking patient. Interval History: Michael Zavala is a 56 year old male with a significant past medical history of HTN is presenting to the ED c/o intermittent CP for the past 3 years but worsening recently. He states the pain is worsened with activity but also occurs when at rest. He notes it usually happens when his blood pressure is elevated. Patient reports the pain radiating to his shoulders. He endorses associateddizziness. Patient denies SOB, nausea, vomiting, fevers, or chills. Patient also denies past familyhistory of heart disease. No past medical history on file. No [...] on file Housing Stability: Not on file Review of Systems Constitutional: Negative for fever. HENT: Negative for congestion and sore throat. Eyes: Negative for blurred vision and double vision. Respiratory: Negative for cough and shortness of breath. Cardiovascular: Positive for chest pain. Gastrointestinal: Negative for abdominal pain, diarrhea, nausea and vomiting. Genitourinary: Negative for dysuria. Musculoskeletal: Negative for back pain and neck pain. Skin: Negative for itching and rash. Neurological: Positive for dizziness. Negative for headaches. Psychiatric/Behavioral: Negative for suicidal ideas. Vitals: 12/07/21 1320 12/07/21 1324 12/07/21 1330 12/07/21 1332 BP: 137/82 Pulse: 85 75 70 72 Resp: Temp: SpO2: 94% 95% 96% Weight: Height: Physical Exam Constitutional: General: He is not in acute distress. HENT: Head: Atraumatic. Eyes: Extraocular Movements: Extraocular movements intact. Pupils: Pupils are equal, round, and reactive to light. Cardiovascular: Rate and Rhythm: Normal rate and regular rhythm. Pulses: Radial pulses are 2+ on the right side and 2+ on the left side. Heart sounds: Normal heart sounds. No murmur heard. No friction rub. No gallop. Pulmonary: Effort: Pulmonary effort is normal. No respiratory distress. Breath sounds: Normal breath sounds. Chest: Comments: No TTP Abdominal: General: There is no distension. Palpations: Abdomen is soft. Tenderness: There is no abdominal tenderness. Musculoskeletal: General: No deformity. Normal range of motion. Cervical back: Normal range of motion and neck supple. Skin: General: Skin is warm and dry. Neurological: Mental Status: He is alert and oriented to person, place, and time. Cranial Nerves: No cranial nerve deficit. Psychiatric: Mood and Affect: Mood normal. Behavior: Behavior normal. Medical Decision Making: Dx: Patient is a 56 y/o male presenting with worsening CP. DDx: nSTEMI vs STEMI vs muscle strain vs gerd vs HTN vs anxiety vs unlikely PE vs other Plan: Admit to cardiology. Results: Labs Reviewed TROPONIN I - Abnormal; Notable for the following components: Result Value Troponin I 0.137 (*) All other components within normal limits CBC W AUTO DIFFERENTIAL - Abnormal; Notable for the following components: MPV 9.3 (*) Eosinophils % 13.8 (*) Eosinophils Absolute 1.08 (*) All other components within normal limits COMPREHENSIVE METABOLIC PANEL - Abnormal; Notable for the following components: Creatinine 1.20 (*) CO2 19 (*) Glucose 131 (*) Bilirubin Total 1.3 (*) eGFR by CKD-EPI 71 (*) All other components within normal limits TROPONIN I CBC W AUTO DIFFERENTIAL PT-INR SLH PTT SLH XR CHEST 1VW (Results Pending) ED course: The patient's Oxygen Saturation Monitor was interpreted by me. The reading was 94%. The patient wason RA at the time of the reading. This is interpreted as normal. 12:30 PM: Labs reveal Trop of .137. 12:45 PM: Discussed all the pertinent aspects of the case with Cardiology who will see the patient. 12:50 PM: Nitro given which dropped BP to 100/57. Will hold until Cardio recs. 1:10 PM: After discussion with Cardiology, the patient will be admitted to their service for further management of care. -I have reviewed the diagnostic findings with the patient and they have had an opportunity to ask me any questions they have about care, diagnosis, and reason for admission. The patient states understanding and agrees to admission. 1:13 PM: At this time, the patient has a bed assigned with Cardiology's service. Patient to be transferred to their inpatient bed. Consult No Procedure done at this time No Ultrasound done at this time No CRITICAL CARE IN THE ED No Orders and Medicine administered during this encounter: Orders Placed This Encounter ??? XR CHEST 1VW ??? TROPONIN I ??? TROPONIN I ??? CBC W AUTO DIFFERENTIAL ??? COMPREHENSIVE METABOLIC PANEL ??? CBC W AUTO DIFFERENTIAL ??? CBC W AUTO DIFFERENTIAL ??? CBC W AUTO DIFFERENTIAL ??? PT-INR [facility] ??? PT-INR [facility] ??? PTT [facility] ??? PTT [facility] ??? IP CONSULT TO CARDIOLOGY ??? OXYGEN ??? EKG 12-LEAD ??? AND Linked Order Group ??? 0.9% NaCl injection 3 mL ??? 0.9% NaCl injection 1-10 mL ??? aspirin chew tablet 324 mg ??? nitroGLYCERIN (Nitrostat) tablet 0.4 mg ??? metoprolol succinate XL 24hr (Toprol XL) tablet 25 mg ??? ticagrelor (Brilinta) tablet 180 mg ??? heparin 100 units/mL bolus from bag ??? heparin 100 units/mL in dextrose 5 % infusion ??? heparin 100 units/mL bolus from bag Medications 0.9% NaCl injection 3 mL (3 mL Intracatheter $ Given 12/07/21 7821) And 0.9% NaCl injection 1-10 mL (has no administration in time range) nitroGLYCERIN (Nitrostat) tablet 0.4 mg (0.4 mg Sublingual $ Given 12/07/21 1225) metoprolol succinate XL 24hr (Toprol XL) tablet 25 mg (25 mg Oral $ Given 12/07/21 1327) heparin 100 units/mL bolus from bag (has no administration in time range) heparin 100 units/mL in dextrose 5 % infusion (has no administration in time range) heparin 100 units/mL bolus from bag (has no administration in time range) aspirin chew tablet 324 mg (324 mg Oral $ Given 12/07/21 1217) ticagrelor (Brilinta) tablet 180 mg (180 mg Oral $ Given 12/07/21 1327) Clinical Impression: 1. Chest pain, unspecified type 2. NSTEMI (non-ST elevated myocardial infarction) 3. Hypercholesterolemia 4. Essential hypertension Disposition: Admit to Cardiology. Follow-up: By signing my name below, I, Elza James, attest that this documentation has been prepared underthe direction and in the presence of Dr. Martinez. Signed: Sasha Whittington. I, Dr. Martinez, personally performed the services described in this documentation. All medical record entries made by the scribe were at my direction and in my presence. I have reviewed the chart and agree that the record reflects my personal performance and is accurate and complete. * Ahsan Rogers PA-C - 12/07/2021 11:56 AM CDT Pt to XR. Ahsan Rogers PA-C * Lisa Tillman - 12/07/2021 11:11 AM CDT Pt returned to waiting room following labs, ambulating w/ steady gate NAD noted, no request at thistime. * Campbell Hunter RN - 12/07/2021 10:32 AM CDT Patient ambulates through triage with complains of chest pain that radiates down right arm with dizziness, pain start while working in the yard. Pain X3 years but worse recently Patient is taking Atorvastatin, omeprazole, lisinopril and states he is compliant with meds. documented in this encounter Plan of Treatment Scheduled Orders Name Type Priority Associated Diagnoses Orde r Schedule CCL CARDIAC CATH LEFT HEART ONLY Cardiac Medical Reimbursement Specialist Radiant Routine NSTEMI (non-ST elevated myocardial infarction) (HCC) For radiant use only for 1 Occurrences starting 12/08/2021 until 12/08/2021 documented as of this encounter Procedures Procedure Name Priority Date/Time Associated Diagnosis Comments CARDIAC EKG ORDER 12/14/2021 12: 04 PM CDT EKG 12-LEAD Routine 12/10/2021 10:33 AM CDT Chest pain due to myocardial ischemia, unspecified ischemic chest pain type VAS RIGHT ARTERIAL DUPLEX UE Routine 12/10/2021 9:35 AM CDT NSTEMI (non-ST elevated myocardial infarction) (HCC) CBC W/O DIFFERENTIAL AM Draw 12/10/2021 6:26 AM CDT BASIC METABOLIC PANEL (CALCIUM TOTAL) AM Draw 12/10/2021 6:26 AM CDT PHOSPHORUS BLOOD AM Draw 12/10/2021 6:26 AM CDT MAGNESIUM BLOOD AM Draw 12/10/2021 6:26 AM CDT PTT [facility] Timed 12/09/2021 4:51 PM CDT CCL CARDIAC CATH LEFT HEART ONLY Routine 12/09/2021 2:13 PM CDT NSTEMI (non-ST elevated myocardial infarction) (HCC) ECHO COMPLETE W BUBBLE STUDY Routine 12/09/2021 9:44 AM CDT NSTEMI (non-ST elevated myocardial infarction) (HCC) PTT [facility] DAVID 12/09/2021 5:56 AM CDT PT-INR [facility] AM Draw 12/09/2021 5:56 AM CDT CBC W/O DIFFERENTIAL AM Draw 12/09/2021 5:56 AM CDT BASIC METABOLIC PANEL (CALCIUM TOTAL) AM Draw 12/09/2021 5:56 AM CDT PHOSPHORUS BLOOD AM Draw 12/09/2021 5:56 AM CDT MAGNESIUM BLOOD AM Draw 12/09/2021 5:56 AM CDT PTT [facility] Timed 12/08/2021 7:04 PM CDT MICROALB/CREAT RATIO URINE RANDOM PANEL Routine 12/08/2021 5:14 PM CDT UREA NITROGEN URINE RANDOM Routine 12/08/2021 5:14 PM CDT LYTES (NA K CL) URINE RANDOM PANEL Routine 12/08/2021 5:14 PM CDT GLUCOSE - POINT OF CARE Routine 12/08/2021 4:37 PM CDT GLUCOSE - POINT OF CARE Routine 12/08/2021 12:14 PM CDT PTT [facility] Timed 12/08/2021 11:17 AM CDT GLUCOSE - POINT OF CARE Routine 12/08/2021 9:28 AM CDT GLUCOSE - POINT OF CARE Routine 12/08/2021 9:10 AM CDT PTT [facility] Timed 12/08/2021 5:49 AM CDT PTT [facility] AM Draw 12/08/2021 2:00 AM CDT PT-INR [facility] AM Draw 12/08/2021 2:00 AM CDT TSH REFLEX FREE T4 Routine 12/08/2021 2: 00 AM CDT HEMOGLOBIN A1C Routine 12/08/2021 2:00 AM CDT CBC W/O DIFFERENTIAL AM Draw 12/08/2021 2:00 AM CDT BASIC METABOLIC PANEL (CALCIUM TOTAL) AM Draw 12/08/2021 2:00 AM CDT PHOSPHORUS BLOOD AM Draw 12/08/2021 2:00 AM CDT MAGNESIUM BLOOD AM Draw 12/08/2021 2:00 AM CDT LIPID PROFILE AM Draw 12/08/2021 2:00 AM CDT PTT [facility] Timed 12/07/2021 10:03 PM CDT TROPONIN I Routine 12/07/2021 10:03 PM CDT GLUCOSE - POINT OF CARE Routine 12/07/2021 8:18 PM CDT GLUCOSE - POINT OF CARE Routine 12/07/2021 6:33 PM CDT TROPONIN I Timed 12/07/2021 4:41 PM CDT PTT [facility] STAT 12/07/2021 1:52 PM CDT PT-INR [facility] STAT 12/07/2021 1:52 PM CDT TROPONIN I Timed 12/07/2021 1:52 PM CDT CBC W AUTO DIFFERENTIAL STAT 12/07/2021 1:52 PM CDT XR CHEST 1VW STAT 12/07/2021 12:07 PM CDT Chest pain, unspecified type TROPONIN I STAT 12/07/2021 10:58 AM CDT CBC W AUTO DIFFERENTIAL STAT 12/07/2021 10:58 AM CDT COMPREHENSIVE METABOLIC PANEL STAT 12/07/2021 10:58 AM CDT EKG 12-LEAD STAT 12/07/2021 10:41 AM CDT Chest pain, unspecified type documented in this encounter Results * CARDIAC EKG ORDER (12/14/2021 12:04 PM CDT) Narrative 12/14/2021 12:04 PM CDT Ordered by an unspecified provider. Scanned Document CARDIAC SERVICES ORD ERABLES * EKG 12-LEAD (12/10/2021 10:33 AM CDT) Ventricular Rate 70 BPM [facility] MUSE Atrial Rate 70 BPM [facility] MUSE P-R Interval 164 ms [facility] MUSE QRS Duration ms 96 ms [facility] MUSE Q-T Interval ms 376 ms [facility] MUSE QTC Calculation (Bezet) 406 ms [facility] MUSE Calculated P [place] 68 degrees [facility] MUSE Calculated R [place] 46 degrees [facility] MUSE Calculated T [place] 49 degrees [facility] MUSE Interpretation EKG NORMAL SINUS RHYTHM NORMAL ECG WHEN COMPARED WITH ECG OF 07-DEC-2021 10:41, NO SIGNIFICANT CHANGE WAS FOUND Confirmed by Kenyon Paula ([id number]) on 12/12/2021 7:41:28 AM [facility] MUSE 12/10/2021 10:3 3 AM CDT 12/12/2021 7:41 AM CDT Olman Matthews MD ECG ORDERABLES [facility] MUSE * VAS RIGHT ARTERIAL DUPLEX UE (12/10/2021 9:35 AM CDT) Anatomical Region Laterality Modality Upper Extremity Intravascular Ul trasound 12/10/2021 8:50 AM CDT Narrative Procedure Note Gumaro Ann MD - 12/10/2021 Olman Matthews MD VASCULAR LAB ORDERAB LES * PHOSPHORUS BLOOD (12/10/2021 6:26 AM CDT) Phosphorus 3.4 2.8 - 5.1 mg/dL 12/10/2021 7:00 AM CDT [facility] Blood BLOOD SPECIMEN / Unknown Lab Venipuncture / Unknown 12/10/2021 6:26 AM CDT 12/10/2021 6:33 AM CDT Olman Matthews MD LAB - CHEMISTRY ORDDiane REZA Performing Organization Address [facility]/ZIP Co de Phone Number [address] [address], [place] [phone] * MAGNESIUM BLOOD (12/10/2021 6:26 AM CDT) Magnesium 2.2 1.6 - 2.6 mg/dL 12/10/2021 7:00 AM CDT [facility] Blood BLOOD SPECIMEN / Unknown Lab Venipuncture / Unknown 12/10/2021 6:26 AM CDT 12/10/2021 6:33 AM CDT Olman Matthews MD LAB - CHEMISTRY ASHER REZA [address] [address], [place] [phone] * (ABNORMAL) BASIC METABOLIC PANEL (CALCIUM TOTAL) (12/10/2021 6:26 AM CDT) BUN 16 7 - 26 mg/dL 12/10/2021 7:00 AM [facility] Creatinine 1.06 0.71 - 1.16 mg/dL 12/10/2021 7:00 AM [facility] Sodium 138 136 - 145 mmol/L 12/10/2021 7:00 AM [facility] Potassium 4.2 3.5 - 4.5 mmol/L 12/10/2021 7:00 AM [facility] Chloride 105 98 - 107 mmol/L 12/10/2021 7:00 AM [facility] CO2 22 22 - 29 mmol/L 12/10/2021 7:00 AM [facility] Glucose 109 70 - 115 mg/dL 12/10/2021 7:00 AM [facility] Calcium 9.4 8.4 - 10.2 mg/dL 12/10/2021 7:00 AM [facility] Anion Gap 15 8 - 18 12/10/2021 7:00 AM [facility] BUN/Creatinine Ratio 15 7 - 23 12/10/2021 7:00 AM [facility] Osmolality Calculated 288 270 - 300 mOsm/kg 12/10/2021 7:00 AM [facility] eGFR by CKD-EPI 83(L) >=90 mL/min/1.7 3 m2 12/10/2021 7:00 AM [facility] Blood BLOOD SPECIMEN / Unknown Lab Venipuncture / Unknown 12/10/2021 6:26 AM CDT 12/10/2021 6:33 AM CDT Olman Matthews MD LAB - CHEMISTRY ASHER REZA [facility] Organization Address City/State/ZIP Co de Phone Number [address] [address], [facility] [phone] * (ABNORMAL) CBC W/O DIFFERENTIAL (12/10/2021 6:26 AM CDT) Pathologist [facility] WBC 11.2(H) 3.5 - 10.5 10? 3 /uL 12/10/2021 6:52 AM [facility] RBC 4.82 4.30 - 5.70 10? 6 /uL 12/10/2021 6:52 AM [facility] Hemoglobin 14.4 12.0 - 17.6 g/dL 12/10/2021 6:52 AM [facility] Hematocrit 42.8 35.2 - 51.7 % 12/10/2021 6:52 AM [facility] MCV 88.8 80.7 - 98.3 fL 12/10/2021 6:52 AM [facility] MCH 29.9 26.7 - 34.0 pg 12/10/2021 6:52 AM [facility] MCHC 33.6 30.8 - 35.9 g/dL 12/10/2021 6:52 AM [facility] Platelet Count 195 150 - 400 10? 3 /uL 12/10/2021 6:52 AM [facility] RDW-SD 38.8 36.0 - 50.0 fL 12/10/2021 6:52 AM [facility] RDW-CV 11.9 11.2 - 14.8 % 12/10/2021 6:52 AM [facility] MPV 9.4 9.4 - 12.9 fL 12/10/2021 6:52 AM [facility] nRBC Absolute 0.00 0 10? 3 /uL 12/10/2021 6:52 AM [facility] nRBC Auto 0.0 0 /100 WBC 12/10/2021 6:52 AM [facility] Blood BLOOD SPECIMEN / Unknown Lab Venipuncture / Unknown 12/10/2021 6:26 AM CDT 12/10/2021 6:32 AM CDT Olman Matthews MD LAB - HEMATOLOGY ORD ERABLES [facility] [address] [place] [address], [facility] [phone] * (ABNORMAL) PTT [facility] (12/09/2021 4:51 PM CDT) APTT 117.8() 23.0 - 38.4 Seconds 12/09/2021 6:13 PM CDT [facility] Comment:Suggested therapeuti c range for full dose I.V. unfractionated heparin therapy for venous thromboembolism is 71 to 109 seconds. Blood BLOOD SPECIMEN / Unknown Lab Venipuncture / Unknown 12/09/2021 4:51 PM CDT 12/09/2021 4:53 PM CDT Ayana Batista MD LAB - COAGULATION OR DERABLES [facility] [address] [place] [address], [facility] [phone] * CCL CARDIAC CATH LEFT HEART ONLY (12/09/2021 2:13 PM CDT) Anatomical Region Laterality Modality Chest X-Ray Angiograph y Narrative 12/16/2021 11:03 AM CDT [facility] Cardiac Catheterization Procedure Note Patient: Michael Zavala Age: [age] year old Date of : 1965 Date of Admission: 12/07/21 Procedure Date: @IMGEXAMDATE@ FELLOW / REIMBURSEMENT REPRESENTATIVE: Mariella Little MD ATTENDING PHYSICIAN: Olman Matthews MD DIAGNOSTIC APPROPRIATENESS CRITERIA: NSTEMI HISTORY: 56 year old male with past medical history of hyperlipidemia, hypertension and GERD, going for left heart cath for NSTEMI. ACCESS SITE(S): ?? right radial artery SEDATION: Moderate sedation on this adult patient was ordered by Dr. Matthesw, administered intravenously in their presence, and monitored [...] evaluation, please review the evaluation forms in [facility]. For details on monitored clinical parameters during the intra-service sedation time, please review the procedure nurse documentation in [facility] and [facility]. 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 PCI of the LAD. [facility] Percutaneous Coronary Intervention Report APPROPRIATENESS CRITERIA FOR PCI: NSTEMI PCI INDICATION: NSTEMI Unstable Angina / [id number] Myocardial Infarction-Class:I PCI STATUS: urgent PCI PROCEDURAL [...] DURING PCI: Heparin 7. INTERVENTIONAL WIRE: A [place] wire was advanced beyond the lesion into [...] Little MD 12/09/2021 Olman Matthews MD CARDIAC SHIP RIGGER RAD IANT * ECHO COMPLETE W BUBBLE STUDY (12/09/2021 9:44 AM CDT) Anatomical Region Laterality Modality Chest Echo 12/09/2021 7:55 AM CDT Narrative Procedure Note Ayana Batista MD - 12/09/2021 Olman Matthews MD ECHOCARDIOGRAPHY RAD IANT * (ABNORMAL) PTT [facility] (12/09/2021 5:56 AM CDT) [facility] APTT 105.0(HH) 23.0 - 38.4 Seconds 12/09/2021 6:58 AM CDT [facility] Comment:Suggested therapeuti c range for full dose I.V. unfractionated heparin therapy for venous thromboembolism is 71 to 109 seconds. Blood BLOOD SPECIMEN / Unknown Lab Venipuncture / Unknown 12/09/2021 5:56 AM CDT 12/09/2021 6:35 AM CDT Zahira Oakes MD LAB - COAGUL ATION ORDERABLES [address] [address], [facility] [phone] * PHOSPHORUS BLOOD (12/09/2021 5:56 AM CDT) Phosphorus 3.1 2.8 - 5.1 mg/dL 12/09/2021 7:14 AM CDT [facility] Blood BLOOD SPECIMEN / Unknown Lab Venipuncture / Unknown 12/09/2021 5:56 AM CDT 12/09/2021 6:40 AM CDT Olman Matthews MD LAB - CHEMISTRY ASHER REZA Performing Organization Address [facility]/ZIP Co de Phone Number [address] [address], [facility] [phone] * MAGNESIUM BLOOD (12/09/2021 5:56 AM CDT) Magnesium 2.2 1.6 - 2.6 mg/dL 12/09/2021 7:14 AM CDT [facility] Blood BLOOD SPECIMEN / Unknown Lab Venipuncture / Unknown 12/09/2021 5:56 AM CDT 12/09/2021 6:40 AM CDT Olman Matthews MD LAB - CHEMISTRY ASHER REZA Performing Organization Address [facility]/ZIP Co de Phone Number [address] [address], [facility] [phone] * (ABNORMAL) BASIC METABOLIC PANEL (CALCIUM TOTAL) (12/09/2021 5:56 AM CDT) BUN 17 7 - 26 mg/dL 12/09/2021 7:14 AM CDT [facility] Creatinine 1.14 0.71 - 1.16 mg/dL 12/09/2021 7:14 AM [facility] Sodium 139 136 - 145 mmol/L 12/09/2021 7:14 AM [facility] Potassium 3.8 3.5 - 4.5 mmol/L 12/09/2021 7:14 AM [facility] Chloride 105 98 - 107 mmol/L 12/09/2021 7:14 AM [facility] CO2 22 22 - 29 mmol/L 12/09/2021 7:14 AM [facility] Glucose 107 70 - 115 mg/dL 12/09/2021 7:14 AM [facility] Calcium 9.2 8.4 - 10.2 mg/dL 12/09/2021 7:14 AM [facility] Anion Gap 16 8 - 18 12/09/2021 7:14 AM [facility] BUN/Creatinine Ratio 15 7 - 23 12/09/2021 7:14 AM [facility] Osmolality Calculated 290 270 - 300 mOsm/kg 12/09/2021 7:14 AM [facility] eGFR by CKD-EPI 76(L) >=90 mL/min/1.7 3 m2 12/09/2021 7:14 AM [facility] Blood BLOOD SPECIMEN / Unknown Lab Venipuncture / Unknown 12/09/2021 5:56 AM CDT 12/09/2021 6:40 AM T Olman Matthews MD LAB - CHEMISTRY ASHER REZA [facility] Organization Address City/State/[facility] Co de Phone Number [facility] [address] [place] [address], [facility] [phone] * CBC W/O DIFFERENTIAL (12/09/2021 5:56 AM CDT) WBC 8.6 3.5 - 10.5 10? 3 /uL 12/09/2021 6:52 AM [facility] RBC 4.97 4.30 - 5.70 10? 6 /uL 12/09/2021 6:52 AM [facility] Hemoglobin 14.9 12.0 - 17.6 g/dL 12/09/2021 6:52 AM [facility] Hematocrit 45.5 35.2 - 51.7 % 12/09/2021 6:52 AM [facility] MCV 91.5 80.7 - 98.3 fL 12/09/2021 6:52 AM [facility] MCH 30.0 26.7 - 34.0 pg 12/09/2021 6:52 AM [facility] MCHC 32.7 30.8 - 35.9 g/dL 12/09/2021 6:52 AM [facility] Platelet Count 207 150 - 400 10? 3 /uL 12/09/2021 6:52 AM [facility] RDW-SD 40.7 36.0 - 50.0 fL 12/09/2021 6:52 AM [facility] RDW-CV 12.2 11.2 - 14.8 % 12/09/2021 6:52 AM [facility] MPV 9.7 9.4 - 12.9 fL 12/09/2021 6:52 AM [facility] nRBC Absolute 0.00 0 10? 3 /uL 12/09/2021 6:52 AM [facility] nRBC Auto 0.0 0 /100 WBC 12/09/2021 6:52 AM [facility] Blood BLOOD SPECIMEN / Unknown Lab Venipuncture / Unknown 12/09/2021 5:56 AM CDT 12/09/2021 6:40 AM CDT Olman Matthews MD LAB - HEMATOLOGY ORD ERABLES [facility] [address] [place] [address], [facility] [phone] * PT-INR [facility] (12/09/2021 5:56 AM CDT) PT 13.3 12.1 - 14.8 Seconds 12/09/2021 6:52 AM [facility] INR 1.0 See Comment 12/09/2021 6:52 AM [facility] Comment:The suggested therap eutic range for standard coumadin (warfarin) therapy is an INR of 2.0-3.0. For high-risk patients (Mechanical Mitral Valve Prosthesis, etc.), the suggested prophylactic therapeutic range is an INR of 2.5-3.5. Blood BLOOD SPECIMEN / Unknown Lab Venipuncture / Unknown 12/09/2021 5:56 AM CDT 12/09/2021 6:35 AM CDT Ahsan Rogers PA-C LAB - COAGULATION ORDERABLES Performing Organization Address City/[facility]/ZIP Co de Phone Number [facility] [address] [place] [address], [place] [phone] * (ABNORMAL) PTT [facility] (12/08/2021 7:04 PM CDT) APTT 53.9(H) 23.0 - 38.4 Seconds 12/08/2021 7:47 PM CDT [facility] Comment:Suggested therapeuti c range for full dose I.V. unfractionated heparin therapy for venous thromboembolism is 71 to 109 seconds. Blood BLOOD SPECIMEN / Unknown Lab Venipuncture / Unknown 12/08/2021 7:04 PM CDT 12/08/2021 7:26 PM CDT Olman Matthews MD LAB - COAGULATION OR DERABLES [facility] [address] [place] [address], [place] [phone] * MICROALB/CREAT RATIO URINE RANDOM PANEL (12/08/2021 5:14 PM CDT) Albumin Random Urine 10.2 Not Established ug/mL 12/08/2021 5:43 PM CDT [facility] Creatinine Urine 114 Not Established mg/dL 12/08/2021 5:43 PM CDT [facility] Urine Albumin/Creati nine Ratio 9 <30 mg/g 12/08/2021 5:43 PM CDT [facility] Urine URINE SPECIMEN OBTAINED BY CLEAN CATCH PROCEDURE / Unknown Collection / Unknown 12/08/2021 5:14 PM CDT 12/08/2021 5:30 PM CDT Olman Matthews MD LAB - URINE CHEMISTR Y ORDERABLES [address] [address], [place] [phone] * UREA NITROGEN URINE RANDOM (12/08/2021 5:14 PM CDT) Urea Nitrogen Random Urine 566 Not Established mg/dL 12/08/2021 5:43 PM CDT [facility] Urine URINE SPECIMEN OBTAINED BY CLEAN CATCH PROCEDURE / Unknown Collection / Unknown 12/08/2021 5:14 PM CDT 12/08/2021 5:30 PM CDT Olman Matthews MD LAB - URINE CHEMISTR Y ORDERABLES Performing Organization Address City/[facility]/ZIP Co de Phone Number [address] [address], [place] [phone] * LYTES (NA K CL) URINE RANDOM PANEL (12/08/2021 5:14 PM CDT) Sodium Urine 34 Not Established mmol/L 12/08/2021 5:43 PM CDT [facility] Potassium Urine 58.2 Not Established mmol/L 12/08/2021 5:43 PM CDT [facility] Chloride Random Urine 61 Not Established mmol/L 12/08/2021 5:43 PM CDT [facility] Urine URINE SPECIMEN OBTAINED BY CLEAN CATCH PROCEDURE / Unknown Collection / Unknown 12/08/2021 5:14 PM CDT 12/08/2021 5:30 PM CDT Olman Matthews MD LAB - URINE CHEMISTR Y ORDERABLES Performing Organization Address City/[facility]/ZIP Co de Phone Number [address] [address], [place] [phone] * GLUCOSE - POINT OF CARE (12/08/2021 4:37 PM CDT) Glucose WB/POC 90 70 - 115 mg/dL 12/08/2021 4:42 PM CDT [facility] Specimen Type Cap Fingerstick 2021 4:42 PM CDT [facility] Blood BLOOD SPECIMEN / Unknown 12/08/2021 4:37 PM CDT 12/08/2021 4:41 PM CDT Olman Matthews MD LAB - POINT OF CARE ORDERABLES [facility] [address] [place] [address], [place] [phone] * GLUCOSE - POINT OF CARE (12/08/2021 12:14 PM CDT) Glucose WB/POC 108 70 - 115 mg/dL 12/08/2021 12:25 PM CDT [facility] Specimen Type Cap Fingerstick 2021 12:25 PM CDT [facility] Blood BLOOD SPECIMEN / Unknown 12/08/2021 12:14 PM CDT 12/08/2021 12:25 PM CDT Olman Matthews MD LAB - POINT OF CARE ORDERABLES [facility] [address] [place] [address], [place] [phone] * (ABNORMAL) PTT [facility] (12/08/2021 11:17 AM CDT) APTT 77.1(H) 23.0 - 38.4 Seconds 12/08/2021 12:20 PM CDT [facility] Comment:Suggested therapeuti c range for full dose I.V. unfractionated heparin therapy for venous thromboembolism is 71 to 109 seconds. Blood BLOOD SPECIMEN / Unknown Lab Venipuncture / Unknown 12/08/2021 11:17 AM CDT 12/08/2021 11:20 AM CDT Olman Matthews MD LAB - COAGULATION OR DERABLES [address] [address], [place] [phone] * GLUCOSE - POINT OF CARE (12/08/2021 9:28 AM CDT) Glucose WB/POC 102 70 - 115 mg/dL 12/08/2021 11:57 AM CDT [facility] Specimen Type Cap Fingerstick 2021 11:57 AM CDT [facility] Blood BLOOD SPECIMEN / Unknown 12/08/2021 9:28 AM CDT 12/08/2021 11:57 AM CDT Olman Matthews MD LAB - POINT OF CARE ORDERABLES Performing Organization Address City/[facility]/ZIP Co de Phone Number [address] [address], [place] [phone] * GLUCOSE - POINT OF CARE (12/08/2021 9:10 AM CDT) Glucose WB/POC 104 70 - 115 mg/dL 12/08/2021 11:57 AM CDT [facility] Specimen Type Cap Fingerstick 2021 11:57 AM CDT [facility] Blood BLOOD SPECIMEN / Unknown 12/08/2021 9:10 AM CDT 12/08/2021 11:57 AM CDT Olman Matthews MD LAB - POINT OF CARE ORDERABLES Performing Organization Address City/[facility]/ZIP Co de Phone Number [address] [address], [place] [phone] * (ABNORMAL) PTT [facility] (12/08/2021 5:49 AM CDT) APTT 175.1(HH) 23.0 - 38.4 Seconds 12/08/2021 6:31 AM CDT [facility] Comment:Suggested therapeuti c range for full dose I.V. unfractionated heparin therapy for venous thromboembolism is 71 to 109 seconds. Blood BLOOD SPECIMEN / Unknown Lab Venipuncture / Unknown 12/08/2021 5:49 AM CDT 12/08/2021 6:02 AM CDT Ayana Batista MD LAB - COAGULATION OR DERABLES Performing Organization Address City/[facility]/ZIP Co de Phone Number [address] [address], [place] [phone] * PHOSPHORUS BLOOD (12/08/2021 2:00 AM CDT) Phosphorus 4.2 2.8 - 5.1 mg/dL 12/08/2021 3:26 AM CDT [facility] Blood BLOOD SPECIMEN / Unknown Lab Venipuncture / Unknown 12/08/2021 2:00 AM CDT 12/08/2021 2:51 AM CDT Olman Matthews MD LAB - CHEMISTRY ASHER REZA Performing Organization Address City/[facility]/ZIP Co de Phone Number [address] [address], [place] [phone] * MAGNESIUM BLOOD (12/08/2021 2:00 AM CDT) Pathologist [facility] Magnesium 2.4 1.6 - 2.6 mg/dL 12/08/2021 3:26 AM CDT [facility] Blood BLOOD SPECIMEN / Unknown Lab Venipuncture / Unknown 12/08/2021 2:00 AM CDT 12/08/2021 2:51 AM CDT Olman Matthews MD LAB - CHEMISTRY ASHER REZA Performing Organization Address City/[facility]/ZIP Co de Phone Number [address] [address], [place] [phone] * (ABNORMAL) BASIC METABOLIC PANEL (CALCIUM TOTAL) (12/08/2021 2:00 AM CDT) BUN 17 7 - 26 mg/dL 12/08/2021 3:26 AM [facility] Creatinine 1.20(H) 0.71 - 1.16 mg/dL 12/08/2021 3:26 AM [facility] Sodium 142 136 - 145 mmol/L 12/08/2021 3:26 AM [facility] Potassium 4.3 3.5 - 4.5 mmol/L 12/08/2021 3:26 AM [facility] Chloride 107 98 - 107 mmol/L 12/08/2021 3:26 AM [facility] CO2 22 22 - 29 mmol/L 12/08/2021 3:26 AM [facility] Glucose 105 70 - 115 mg/dL 12/08/2021 3:26 AM [facility] Calcium 9.2 8.4 - 10.2 mg/dL 12/08/2021 3:26 AM [facility] Anion Gap 17 8 - 18 12/08/2021 3:26 AM [facility] BUN/Creatinine Ratio 14 7 - 23 12/08/2021 3:26 AM [facility] Osmolality Calculated 296 270 - 300 mOsm/kg 12/08/2021 3:26 AM [facility] eGFR by CKD-EPI 71(L) >=90 mL/min/1.7 3 m2 12/08/2021 3:26 AM [facility] Blood BLOOD SPECIMEN / Unknown Lab Venipuncture / Unknown 12/08/2021 2:00 AM CDT 12/08/2021 2:51 AM CDT Olman Matthews MD LAB - CHEMISTRY ASHER REZA [facility] [address] [place] [address], [facility] [phone] * CBC W/O DIFFERENTIAL (12/08/2021 2:00 AM CDT) Pathologist [facility] WBC 9.1 3.5 - 10.5 10? 3 /uL 12/08/2021 3:11 AM [facility] RBC 4.82 4.30 - 5.70 10? 6 /uL 12/08/2021 3:11 AM [facility] Hemoglobin 14.5 12.0 - 17.6 g/dL 12/08/2021 3:11 AM [facility] Hematocrit 43.3 35.2 - 51.7 % 12/08/2021 3:11 AM [facility] MCV 89.8 80.7 - 98.3 fL 12/08/2021 3:11 AM [facility] MCH 30.1 26.7 - 34.0 pg 12/08/2021 3:11 AM [facility] MCHC 33.5 30.8 - 35.9 g/dL 12/08/2021 3:11 AM [facility] Platelet Count 200 150 - 400 10? 3 /uL 12/08/2021 3:11 AM [facility] RDW-SD 40.0 36.0 - 50.0 fL 12/08/2021 3:11 AM [facility] RDW-CV 12.1 11.2 - 14.8 % 12/08/2021 3:11 AM [facility] MPV 9.8 9.4 - 12.9 fL 12/08/2021 3:11 AM [facility] nRBC Absolute 0.00 0 10? 3 /uL 12/08/2021 3:11 AM [facility] nRBC Auto 0.0 0 /100 WBC 12/08/2021 3:11 AM [facility] Blood BLOOD SPECIMEN / Unknown Lab Venipuncture / Unknown 12/08/2021 2:00 AM CDT 12/08/2021 2:51 AM CDT Olman Matthews MD LAB - HEMATOLOGY ORD ERABLES [facility] [address] [place] [address], [facility] [phone] * (ABNORMAL) PTT [facility] (12/08/2021 2:00 AM CDT) APTT 120.7() 23.0 - 38.4 Seconds 12/08/2021 3:05 AM CDT [facility] Comment:Suggested therapeuti c range for full dose I.V. unfractionated heparin therapy for venous thromboembolism is 71 to 109 seconds. Blood BLOOD SPECIMEN / Unknown Lab Venipuncture / Unknown 12/08/2021 2:00 AM CDT 12/08/2021 2:47 AM CDT Ahsan Rogers PA-C LAB - COAGULATION ORDERABLES Performing Organization Address [facility] Co de Phone Number [facility] [address] [place] [address], [facility] [phone] * PT-INR [facility] (12/08/2021 2:00 AM CDT) PT 13.6 12.1 - 14.8 Seconds 12/08/2021 3:01 AM CDT [facility] INR 1.1 See Comment 12/08/2021 3:01 AM T [facility] Comment:The suggested therap eutic range for standard coumadin (warfarin) therapy is an INR of 2.0-3.0. For high-risk patients (Mechanical Mitral Valve Prosthesis, etc.), the suggested prophylactic therapeutic range is an INR of 2.5-3.5. Blood BLOOD SPECIMEN / Unknown Lab Venipuncture / Unknown 12/08/2021 2:00 AM CDT 12/08/2021 2:47 AM CDT Ahsan Rogers PA-C LAB - COAGULATION ORDERABLES Performing Organization Address [facility] Co de Phone Number [facility] [address] [place] [address], [place] [phone] * HEMOGLOBIN A1C (12/08/2021 2:00 AM CDT) Hemoglobin A1c 5.5 <=5.6 % 12/08/2021 1:14 PM T [facility] Estimated Average Glucose 111 mg/dL 12/08/2021 1:14 PM CDT [facility] Comment: HbA1c Interpretation: Normal : < 5.7% Pre-diabetes: 5.7-6.4% Diabetes: Equal to or greater than 6.5% Test results diagnostic of diabetes should be repeated for confirmation. Treatment target values recommended by ADA and other clinical organizations should be used to evaluate metabolic control in patients. Reference: [place] [employer], Standards of Care in Diabetes -2020 In patients 70 years and older consider HbA1c target range of 7.0-7.5% (Reference: Rasheed Olivares, et al. GAMADA. 2012) The Sebia assay for the measurement of HbA1c is a National Glycohemoglobin Standardization Program (NGSP) certified method. Blood BLOOD SPECIMEN / Unknown Lab Venipuncture / Unknown 12/08/2021 2:00 AM CDT 12/08/2021 2:50 AM CDT Olman Matthews MD LAB - CHEMISTRY ASHER REZA [facility] [address] [place] [address], [facility] [phone] * (ABNORMAL) LIPID PROFILE (12/08/2021 2:00 AM CDT) [facility] Cholesterol Total 182 <200 mg/dL 12/08/2021 3:26 AM CDT [facility] HDL 44 >40 mg/dL 12/08/2021 3:26 AM T [facility] Comment: ATP III Classification of HDL Cholesterol: ? <40 mg/dL: ??Considered a major risk factor. ? >60 mg/dL: ??Considered a negative risk factor. ? LDL Calculated 120(H) <100 mg/dL 12/08/2021 3:26 AM CDT [facility] Comment: ATP III Classification of LDL Cholesterol: ?<100 mg/dL: ??Optimal ? 100 - 129 mg/dL: ??Near Optimal/Above Optimal ? 130 - 159 mg/dL: ??Borderline High ? 160 - 189 mg/dL: ??High ?>190 mg/dL: ??Very High ? Triglycerides 89 <150 mg/dL 12/08/2021 3:26 AM CDT [facility] Comment: ATP III Classification of Triglycerides: ?<150 mg/dL: ??Normal ? 150 - 199 mg/dL: ??Borderline High ? 200 - 400 mg/dL: ??High ?>500 mg/dL: ??Very High Blood BLOOD SPECIMEN / Unknown Lab Venipuncture / Unknown 12/08/2021 2:00 AM CDT 12/08/2021 2:51 AM CDT Olman Matthews MD LAB - CHEMISTRY ASHER REZA Performing Organization Address City/[facility]/ZIP Co de Phone Number [facility] [address] [place] [address], [place] [phone] * TSH REFLEX FREE T4 (12/08/2021 2:00 AM CDT) TSH 1.435 0.350 - 4.940 uIU/mL 12/08/2021 3:40 AM CDT [facility] Blood BLOOD SPECIMEN / Unknown Lab Venipuncture / Unknown 12/08/2021 2:00 AM CDT 12/08/2021 2:51 AM CDT Olman Matthews MD LAB - CHEMISTRY ASHER REZA [facility] [address] [place] [address], [place] [phone] * (ABNORMAL) TROPONIN I (12/07/2021 10:03 PM CDT) Troponin I 0.136(H) <0.032 ng/mL 12/07/2021 11:15 PM CDT [facility] Blood BLOOD SPECIMEN / Unknown Lab Venipuncture / Unknown 12/07/2021 10:03 PM CDT 12/07/2021 10:42 PM CDT Olman Matthews MD LAB - CHEMISTRY ORDE JUAQUIN [address] [address], [place] [phone] * (ABNORMAL) PTT [facility] (12/07/2021 10:03 PM CDT) APTT 125.1(HH) 23.0 - 38.4 Seconds 12/08/2021 1:48 AM CDT [facility] Comment:Suggested therapeuti c range for full dose I.V. unfractionated heparin therapy for venous thromboembolism is 71 to 109 seconds. Blood BLOOD SPECIMEN / Unknown Lab Venipuncture / Unknown 12/07/2021 10:03 PM CDT 12/08/2021 1:28 AM CDT Olman Matthews MD LAB - COAGULATION OR DERABLES Performing Organization Address [facility]/ZIP Co de Phone Number [address] [address], [place] [phone] * GLUCOSE - POINT OF CARE (12/07/2021 8:18 PM CDT) Glucose WB/POC 115 70 - 115 mg/dL 12/07/2021 8:18 PM CDT [facility] Specimen Type Arterial 12/07/2021 8:18 PM CDT [facility] Blood BLOOD SPECIMEN / Unknown 12/07/2021 8:18 PM CDT 12/07/2021 8:18 PM CDT Olman Matthews MD LAB - POINT OF CARE ORDERABLES Performing Organization Address City/[facility]/ZIP Co de Phone Number [address] [address], [place] [phone] * (ABNORMAL) GLUCOSE - POINT OF CARE (12/07/2021 6:33 PM CDT) Glucose WB/POC 176(H) 70 - 115 mg/dL 12/07/2021 6:34 PM CDT [facility] Specimen Type Cap Fingerstick 2021 6:34 PM CDT [facility] Blood BLOOD SPECIMEN / Unknown 12/07/2021 6:33 PM CDT 12/07/2021 6:34 PM CDT Olman Matthews MD LAB - POINT OF CARE ORDERABLES Performing Organization Address City/[facility]/ZIP Co de Phone Number [address] [address], [place] [phone] * (ABNORMAL) TROPONIN I (12/07/2021 4:41 PM CDT) Troponin I 0.167(H) <0.032 ng/mL 12/07/2021 5:29 PM CDT [facility] Blood BLOOD SPECIMEN / Unknown Lab Venipuncture / Unknown 12/07/2021 4:41 PM CDT 12/07/2021 4:57 PM CDT Woodrow Luna MD LAB - CHEMISTRY ORDE JUAQUIN Performing Organization Address [facility]/ZIP Co de Phone Number [address] [address], [place] [phone] * PTT [facility] (12/07/2021 1:52 PM CDT) APTT 24.0 23.0 - 38.4 Seconds 12/07/2021 2:14 PM CDT [facility] Comment:Suggested therapeuti c range for full dose I.V. unfractionated heparin therapy for venous thromboembolism is 71 to 109 seconds. Blood BLOOD SPECIMEN / Unknown Venipuncture / Unknown 12/07/2021 1:52 PM CDT 12/07/2021 1:58 PM CDT Ahsan Rogers PA-C LAB - COAGULATION ORDERABLES Performing Organization Address City/[facility]/ZIP Co de Phone Number [address] [address], [place] [phone] * PT-INR [facility] (12/07/2021 1:52 PM CDT) PT 12.5 12.1 - 14.8 Seconds 12/07/2021 2:13 PM CDT [facility] INR 1.0 See Comment 12/07/2021 2:13 PM CDT [facility] Comment:The suggested therap eutic range for standard coumadin (warfarin) therapy is an INR of 2.0-3.0. For high-risk patients (Mechanical Mitral Valve Prosthesis, etc.), the suggested prophylactic therapeutic range is an INR of 2.5-3.5. Blood BLOOD SPECIMEN / Unknown Venipuncture / Unknown 12/07/2021 1:52 PM CDT 12/07/2021 1:58 PM CDT Ahsan Rogers PA-C LAB - COAGULATION ORDERABLES Performing Organization Address City/State/[facility] Co de Phone Number [address] [address], [facility] [phone] * (ABNORMAL) CBC W AUTO DIFFERENTIAL (12/07/2021 1:52 PM CDT) WBC 9.1 3.5 - 10.5 10? 3 /uL 12/07/2021 2:02 PM CDT [facility] RBC 4.88 4.30 - 5.70 10? 6 /uL 12/07/2021 2:02 PM T [facility] Hemoglobin 15.1 12.0 - 17.6 g/dL 12/07/2021 2:02 PM CDT [facility] Hematocrit 44.9 35.2 - 51.7 % 12/07/2021 2:02 PM CDT [facility] MCV 92.0 80.7 - 98.3 fL 12/07/2021 2:02 PM CDT [facility] MCH 30.9 26.7 - 34.0 pg 12/07/2021 2:02 PM CDT [facility] MCHC 33.6 30.8 - 35.9 g/dL 12/07/2021 2:02 PM T [facility] Platelet Count 208 150 - 400 10? 3 /uL 12/07/2021 2:02 PM [facility] RDW-SD 41.5 36.0 - 50.0 fL 12/07/2021 2:02 PM [facility] RDW-CV 12.1 11.2 - 14.8 % 12/07/2021 2:02 PM [facility] MPV 9.4 9.4 - 12.9 fL 12/07/2021 2:02 PM [facility] nRBC Absolute 0.00 0 10? 3 /uL 12/07/2021 2:02 PM [facility] nRBC Auto 0.0 0 /100 WBC 12/07/2021 2:02 PM [facility] Neutrophils % 56.2 35.0 - 70.0 % 12/07/2021 2:02 PM [facility] Lymphocytes % 24.4 20.0 - 43.0 % 12/07/2021 2:02 PM [facility] Monocytes % 6.7 5.0 - 13.0 % 12/07/2021 2:02 PM [facility] Eosinophils % 11.9(H) 0.0 - 6.0 % 12/07/2021 2:02 PM [facility] Basophil % 0.6 0.0 - 2.0 % 12/07/2021 2:02 PM [facility] Neutrophils Absolute 5.1 1.6 - 7.0 10? 3 /uL 12/07/2021 2:02 PM [facility] Lymphocyte Absolute 2.2 1.1 - 3.9 10? 3 /uL 12/07/2021 2:02 PM [facility] Monocytes Absolute 0.61 0.26 - 1.07 10? 3 /uL 12/07/2021 2:02 PM [facility] Eosinophils Absolute 1.08(H) 0.00 - 0.47 10? 3 /uL 12/07/2021 2:02 PM [facility] Basophils Absolute 0.05 0.00 - 0.08 10? 3 /uL 12/07/2021 2:02 PM [facility] Immature Granulocytes % 0.2 0.0 - 1.0 % 12/07/2021 2:02 PM [facility] Immature Granulocytes Absolute 0.02 12/07/2021 2:02 PM CDT [facility] Blood BLOOD SPECIMEN / Unknown Venipuncture / Unknown 12/07/2021 1:52 PM CDT 12/07/2021 1:59 PM CDT Ahsan Rogers PA-C LAB - HEMATOLOGY O RDERABLES Performing Organization Address [facility]/ZIP Co de Phone Number [address] [address], [facility] [phone] * (ABNORMAL) TROPONIN I (12/07/2021 1:52 PM CDT) Troponin I 0.157(H) <0.032 ng/mL 12/07/2021 2:34 PM CDT [facility] Blood BLOOD SPECIMEN / Unknown Venipuncture / Unknown 12/07/2021 1:52 PM CDT 12/07/2021 1:59 PM CDT Woodrow Luna MD LAB - CHEMISTRY ASHER REZA Performing Organization Address [facility]/ZIP Co de Phone Number [address] [address], [facility] [phone] * XR CHEST 1VW (12/07/2021 12:07 PM CDT) Anatomical Region Laterality Modality Chest Radiographic Vickie ging 12/07/2021 12:0 4 PM CDT Impressions 12/09/2021 8:11 AM CDT FINDINGS/IMPRESSION: There is no focal consolidation, pleural effusion, or pneumothorax. The cardiomediastinal silhouette is normal. The visible bony thorax is intact. Report dictated by Figueroa Zaragoza MD (resident services supervisor). I, Dr. ERIKA WINKLER MD, [facility] have personally reviewed and interpreted this examination/study. This report was electronically signed by ERIKA WINKLER MD, CR ??on 12/09/2021 8:11 AM . Narrative 12/09/2021 [...] intact. Report dictated by Figueroa Zaragoza MD (resident services supervisor). I, Dr. ERIKA WINKLER MD, [facility] have personally reviewedand interpreted this examination/study. This report was electronically signed by ERIKA WINKLER MD, FRCR on 12/09/2021 8:11 AM . Woodrow Luna MD DIAGNOSTIC IMAGING O RDERABLES * (ABNORMAL) COMPREHENSIVE METABOLIC PANEL (12/07/2021 10:58 AM CDT) BUN 20 7 - 26 mg/dL 12/07/2021 11:39 AM [facility] Creatinine 1.20(H) 0.71 - 1.16 mg/dL 12/07/2021 11:39 AM [facility] Sodium 140 136 - 145 mmol/L 12/07/2021 11:39 AM [facility] Potassium 4.1 3.5 - 4.5 mmol/L 12/07/2021 11:39 AM [facility] Chloride 107 98 - 107 mmol/L 12/07/2021 11:39 AM [facility] CO2 19(L) 22 - 29 mmol/L 12/07/2021 11:39 AM [facility] Glucose 131(H) 70 - 115 mg/dL 12/07/2021 11:39 AM [facility] Calcium 9.2 8.4 - 10.2 mg/dL 12/07/2021 11:39 AM [facility] Protein Total 7.3 6.0 - 8.3 g/dL 12/07/2021 11:39 AM [facility] Albumin 4.1 3.4 - 5.0 g/dL 12/07/2021 11:39 AM [facility] Bilirubin Total 1.3(H) 0.2 - 1.2 mg/dL 12/07/2021 11:39 AM [facility] Alkaline Phosphatase 93 40 - 150 U/L 12/07/2021 11:39 AM [facility] ALT 31 5 - 55 U/L 12/07/2021 11:39 AM [facility] AST 25 5 - 34 U/L 12/07/2021 11:39 AM [facility] Anion Gap 18 8 - 18 12/07/2021 11:39 AM [facility] BUN/Creatinine Ratio 17 7 - 23 12/07/2021 11:39 AM [facility] Osmolality Calculated 294 270 - 300 mOsm/kg 12/07/2021 11:39 AM [facility] Albumin/Globulin Ratio 1.3 1.1 - 2.3 12/07/2021 11:39 AM [facility] eGFR by CKD-EPI 71(L) >=90 mL/min/1.7 3 m2 12/07/2021 11:39 AM [facility] Blood BLOOD SPECIMEN / Unknown Venipuncture / Unknown 12/07/2021 10:58 AM CDT 12/07/2021 11:12 AM T Woodrow Luna MD LAB - CHEMISTRY ASHER REZA [facility] Organization Address City/State/ZIP Co de Phone Number [facility] [address] [place] [address], [facility] [phone] * (ABNORMAL) CBC W AUTO DIFFERENTIAL (12/07/2021 10:58 AM CDT) WBC 7.9 3.5 - 10.5 10? 3 /uL 12/07/2021 11:16 AM [facility] RBC 4.84 4.30 - 5.70 10? 6 /uL 12/07/2021 11:16 AM [facility] Hemoglobin 14.5 12.0 - 17.6 g/dL 12/07/2021 11:16 AM [facility] Hematocrit 43.5 35.2 - 51.7 % 12/07/2021 11:16 AM [facility] MCV 89.9 80.7 - 98.3 fL 12/07/2021 11:16 AM [facility] MCH 30.0 26.7 - 34.0 pg 12/07/2021 11:16 AM [facility] MCHC 33.3 30.8 - 35.9 g/dL 12/07/2021 11:16 AM [facility] Platelet Count 198 150 - 400 10? 3 /uL 12/07/2021 11:16 AM [facility] RDW-SD 39.7 36.0 - 50.0 fL 12/07/2021 11:16 AM [facility] RDW-CV 12.0 11.2 - 14.8 % 12/07/2021 11:16 AM [facility] MPV 9.3(L) 9.4 - 12.9 fL 12/07/2021 11:16 AM [facility] nRBC Absolute 0.00 0 10? 3 /uL 12/07/2021 11:16 AM [facility] nRBC Auto 0.0 0 /100 WBC 12/07/2021 11:16 AM [facility] Neutrophils % 57.2 35.0 - 70.0 % 12/07/2021 11:16 AM [facility] Lymphocytes % 22.0 20.0 - 43.0 % 12/07/2021 11:16 AM [facility] Monocytes % 6.2 5.0 - 13.0 % 12/07/2021 11:16 AM [facility] Eosinophils % 13.8(H) 0.0 - 6.0 % 12/07/2021 11:16 AM [facility] Basophil % 0.5 0.0 - 2.0 % 12/07/2021 11:16 AM [facility] Neutrophils Absolute 4.5 1.6 - 7.0 10? 3 /uL 12/07/2021 11:16 AM [facility] Lymphocyte Absolute 1.7 1.1 - 3.9 10? 3 /uL 12/07/2021 11:16 AM [facility] Monocytes Absolute 0.49 0.26 - 1.07 10? 3 /uL 12/07/2021 11:16 AM [facility] Eosinophils Absolute 1.08(H) 0.00 - 0.47 10? 3 /uL 12/07/2021 11:16 AM [facility] Basophils Absolute 0.04 0.00 - 0.08 10? 3 /uL 12/07/2021 11:16 AM [facility] Immature Granulocytes % 0.3 0.0 - 1.0 % 12/07/2021 11:16 AM [facility] Immature Granulocytes Absolute 0.02 12/07/2021 11:16 AM [facility] Blood BLOOD SPECIMEN / Unknown Venipuncture / Unknown 12/07/2021 10:58 AM CDT 12/07/2021 11:12 AM CDT Woodrow Luna MD LAB - HEMATOLOGY ORD SABINA [address] [address], [facility] [phone] * (ABNORMAL) TROPONIN I (12/07/2021 10:58 AM CDT) Troponin I 0.137(H) <0.032 ng/mL 12/07/2021 11:45 AM CDT [facility] Blood BLOOD SPECIMEN / Unknown Venipuncture / Unknown 12/07/2021 10:58 AM CDT 12/07/2021 11:12 AM CDT Woodrow Luna MD LAB - CHEMISTRY ORDDiane REZA [address] [address], [place] [phone] * EKG 12-LEAD (12/07/2021 10:41 AM CDT) Ventricular Rate 73 BPM [facility]USE Atrial Rate 73 BPM [facility] MUSE P-R Interval 158 ms [facility] QRS Duration ms 92 ms [facility] Q-T Interval ms 374 ms [facility] MUSE QTC Calculation (Bezet) 412 ms [facility] MUSE Calculated P [place] 70 degrees [facility] MUSE Calculated R [place] 48 degrees [facility] MUSE Calculated T [place] 53 degrees [facility] Interpretation EKG NORMAL SINUS RHYTHM POOR R WAVE PROGRESSION NONSPECIFIC T WAVE CHANGES BORDERLINE ECG NO PREVIOUS ECGS AVAILABLE Confirmed by fellow EDEL STEINER MD ([id number]) on 12/08/2021 2:28:18 AM Confirmed by Kenyon Paula ([id number]) on 12/09/2021 8:42:15 AM [facility] MUSE 12/07/2021 10:4 1 AM CDT 12/09/2021 8:42 AM CDT Woodrow Luna MD ECG ORDERABLES [facility] MUSE documented in this encounter Visit Diagnoses Diagnosis Chest pain due to myocardial ischemia, unspecified ischemic chest pain type- Primary Chest pain, unspecified type NSTEMI (non-ST elevated myocardial infarction) (HCC) Acute myocardial infarction, subendocardial infarction, episode of care unspecified Hypercholesterolemia Pure hypercholesterolemia Essential hypertension Non-ST elevation (NSTEMI) myocardial infarction (HCC) Acute myocardial infarction, subendocardial infarction, episode of care unspecified Essential (primary) hypertension Unspecified essential hypertension Pure hypercholesterolemia, unspecified Hypercholesterolemia Pure hypercholesterolemia NSTEMI (non-ST elevated myocardial infarction) (HCC) Acute myocardial infarction, subendocardial infarction, episode of care unspecified Essential hypertension Chest pain documented in this encounter Administered Medications Inactive Administered Medications - up to 3 most recent administrations Medication Order MANAV Action Action Date Dose Rate Site 0.9% NaCl infusion Intravenous, CONTINUOUS PRN, Starting on Thu12/09/21 at 1144, Until Thu12/09/21 at 1144 $ New Bag/Syringe 12/09/2021 11:44 AM CDT 50 mL/hr 50 mL/hr 0.9% NaCl injection 1-10 mL 1-10 mL, Intracatheter, PRN, Other, peripheral line flush, Starting on Thu12/07/21 at 1038, Until Thu12/10/21 at 1758, Flush peripheral IV catheter with 1-10 mL of normal saline before and after medications and prn to clear blood from the line or to verify patency. 0.9% NaCl injection 10 mL 10 mL, Intracatheter, INTRA-PROCEDURE MULTIPLE, Starting on Thu12/09/21 at 0931, Until Thu12/09/21 at 1330, For Echo Procedure - Per Protocol Agitate saline before administration. $ Given 12/09/2021 9:32 AM CDT 10 mL $ Given 12/09/2021 9:31 AM CDT 10 mL 0.9% NaCl injection 3 mL 3 mL, Intracatheter, EVERY 8 HOURS, First dose on Thu12/07/21 at 1400, Until Discontinued, Flush peripheral IV catheter with 3 mL of normal saline every 8 hours. $ Given 12/10/2021 1:06 PM CDT 3 mL $ Given 12/07/2021 1:53 PM CDT 3 mL acetaminophen (Tylenol) tablet 325 mg 325 mg, Oral, EVERY 6 HOURS PRN, Mild Pain, Moderate Pain, Starting on Thu12/09/21 at 1601, Until Thu12/10/21 at 1758, Patient preference for lesser PRN pain meds may be honored when the patient requests a less strong medication, a lower dose, or a less intrusive route of administration when the lesser drug, dose and route have been ordered for the patient. This patient request must be documented in the MAR. $ Given 12/10/2021 10:57 AM CDT 325 mg $ Given 12/09/2021 4:58 PM CDT 325 mg amLODIPine (Norvasc) tablet 10 mg 10 mg, Oral, DAILY, First dose on Thu12/10/21 at 1145, Until Discontinued $ Given 12/10/2021 1:02 PM CDT 10 mg aspirin chew tablet 324 mg 324 mg, Oral, NOW, 1 dose, On 12/07/21 at 1045, Administer if not previously done by patient or EMS or medication is not contraindicated. $ Given 12/07/2021 12:17 PM CDT 324 mg aspirin chew tablet 81 mg 81 mg, Oral, DAILY, First dose on Thu12/08/21 at 0900, Until Discontinued $ Given 12/10/2021 10:57 AM CDT 81 mg $ Given 12/09/2021 8:16 AM CDT 81 mg $ Given 12/08/2021 9:33 AM CDT 81 mg atorvastatin (Lipitor) tablet 80 mg 80 mg, Oral, AT BEDTIME, First dose on 12/07/21 at 2100, Until Discontinued $ Given 12/09/2021 8:56 PM CDT 80 mg $ Given 12/08/2021 10:31 PM CDT 80 mg $ Given 12/07/2021 10:35 PM CDT 80 mg enoxaparin (Lovenox) injection 40 mg 40 mg, Subcutaneous, DAILY, First dose on Thu12/11/21 at 0900, Until Discontinued, (for prefilled syringes) do not expel air bubble from the syringe prior to the injection Remind Patient to not rub injection site. Could cause hematoma. fentaNYL (PF) (Sublimaze) injection Intravenous, ONCE PRN, Starting on Thu12/09/21 at 1206, Until Thu12/09/21 at 1206 $ Given 12/09/2021 12:06 PM CDT 50 mcg heparin 100 units/mL bolus from bag 4,000 Units, Intravenous, BOLUS FROM BAG ONCE, 1 dose, On 12/07/21 at 1345 Bolus From Bag 12/07/2021 1:58 PM CDT 4,000 Units heparin 100 units/mL bolus from bag 4,000-7,000 Units, Intravenous, BOLUS FROM BAG PRN, heparin bolus dose, Starting on 12/07/21 at 1308, Until Thu12/09/21 at 1437, APTT(sec) Bolus less than 59: 7000 unit bolus + rate Increase, 59-68.9: 4000 unit bolus + rate Increase, 69-110: NO CHANGE (therapeutic range), 110.1-121: No Bolus + rate Decrease, 121.1-141: No Bolus + rate Decrease. greater than 141: No Bolus + hold infusion and rate Decrease Draw aPTT 6 hours after infusion is initiated. Repeat aPTT 6 hours after any rate change or 6 hours after heparin is restarted. After two consecutive aPTTs drawn 6 hours apart are therapeutic, order aPTT to be drawn the following a.m. and daily and adjust per nomogram. Notify physician if 2 consecutive aPTT's are greater than 140 If heparin is interrupted for any reason other than described in the table, notify the physician. If heparin is to be restarted after an interruption of more than 4 hours, give 4000 units IV bolus and resume infusion at same rate as before the interruption. Bolus From Bag 12/08/2021 10:35 PM CDT 7,000 Units heparin 100 units/mL in dextrose 5 % infusion 500-2,150 Units/hr (5-21.5 mL/hr), Intravenous, CONTINUOUS, Starting on 12/07/21 at 1345, Until 12/09/21 at 1437, Initial rate 1000 units/hr APTT(sec) RATE CHANGE less than 59: bolus + increase by 350 units/hr, 59-68.9: bolus + increase by 200 units/hr, 69-110: NO CHANGE (therapeutic range), 110.1-121: decrease by 100 units/hr, 121.1-141: decrease by 200 units/hr, greater than 141: Hold heparin for 1 hour and reduce rate by 300 units/hr Draw aPTT 6 hours after infusion is initiated. Repeat aPTT 6 hours after any rate change or 6 hours after heparin is restarted. After two consecutive aPTTs drawn 6 hours apart are therapeutic, order aPTT to be drawn the following a.m. and daily and adjust per nomogram. Notify physician if 2 consecutive aPTT's are greater than 140 If heparin is interrupted for any reason other than described in the table, notify the physician. If heparin is to be restarted after an interruption of more than 4 hours, give 4000 units IV bolus and resume infusion at same rate as before the interruption. $ New Bag/Syringe 12/09/2021 5:03 AM CDT 1,150 Units/hr 11.5 mL/hr Rate Change 12/08/2021 10:32 PM CDT 1,150 Units/hr 11.5 mL /hr $ New Bag/Syringe 12/08/2021 9:34 AM CDT 800 Units/hr 8 mL /hr heparin injection Intravenous, ONCE PRN, Starting on 12/09/21 at 1210, Until 12/09/21 at 1228 $ Given 12/09/2021 12:28 PM CDT 5,000 Units $ Given 12/09/2021 12:10 PM CDT 4,000 Units heparinized saline 2 units/ml infusion Intravenous, CONTINUOUS PRN, Starting on Thu12/09/21 at 1153, Until Thu12/09/21 at 1153 $ New Bag/Syringe 12/09/2021 11:53 AM CDT 1,000 mL 1 mL/hr iopamidol (Isovue 370) 76 % contrast Intravenous, ONCE PRN, Starting on Thu12/09/21 at 1250, Until Thu12/09/21 at 1250 $ Given 12/09/2021 12:50 PM CDT 110 mL lidocaine PF (Xylocaine MPF) 1 % injection Infiltration, ONCE PRN, Starting on Thu12/09/21 at 1207, Until Thu12/09/21 at 1207 $ Given 12/09/2021 12:07 PM CDT 3 mL lisinopril (Prinivil; Zestril) tablet 20 mg 20 mg, Oral, DAILY, First dose on Thu12/10/21 at 1145, Until Discontinued $ Given 12/10/2021 1:02 PM CDT 20 mg metoprolol succinate XL 24hr (Toprol XL) tablet 25 mg 25 mg, Oral, DAILY, First dose on Thu12/07/21 at 1345, Until Discontinued, May cut in half but do not crush or chew $ Given 12/10/2021 10:57 AM CDT 25 mg $ Given 12/09/2021 8:16 AM CDT 25 mg $ Given 12/08/2021 9:34 AM CDT 25 mg midazolam (Versed) injection Intravenous, ONCE PRN, Starting on Thu12/09/21 at 1206, Until Thu12/09/21 at 1206 $ Given 12/09/2021 12:06 PM C DT 2 mg nitroGLYCERIN (Nitrostat) tablet 0.4 mg 0.4 mg, Sublingual, EVERY 5 MIN PRN, Angina, Chest pain, 3 doses, Starting on Thu12/07/21 at 1038, Until Thu12/10/21 at 1758, Notify physician after 3 doses if chest pain not relieved. $ Given 12/07/2021 12:25 PM CDT 0.4 mg pantoprazole EC (Protonix) tablet 40 mg 40 mg, Oral, DAILY, First dose on Thu12/07/21 at 2030, Until Discontinued, Do not crush, chew, or cut in half. $ Given 12/10/2021 10:57 AM CDT 40 mg $ Given 12/09/2021 8:16 AM CDT 40 mg $ Given 12/08/2021 9:34 AM CDT 40 mg ticagrelor (Brilinta) tablet 180 mg 180 mg, Oral, NOW, 1 dose, On 12/07/21 at 1315 $ Given 12/07/2021 1:27 PM CDT 180 mg ticagrelor (Brilinta) tablet 90 mg 90 mg, Oral, 2 TIMES DAILY, First dose on 12/08/21 at 0900, Until Discontinued $ Given 12/10/2021 10:57 AM CDT 90 mg $ Given 12/09/2021 8:57 PM CDT 90 mg $ Given 12/09/2021 8:16 AM CDT 90 mg documented in this encounter Active and Recently Administered Medications Times are shown in CDT. Scheduled Medication Order 12/08/2021 12/09/2021 12/10/2021 0.9% NaCl injection 10 mL () 10 mL, Intracatheter, INTRA-PROCEDURE MULTIPLE, Starting on 12/09/21 at 0931, Until 12/09/21 at 1330, For Echo Procedure - Per Protocol Agitate saline before administration. 0931 ($ Given - Provider: WENDY Zambrano)0932 ($ Given - Provider: WENDY Zambrano) 0.9% NaCl injection 3 mL(Linked Group 1) 3 mL, Intracatheter, EVERY 8 HOURS, First dose on 12/07/21 at 1400, Until Discontinued, Flush peripheral IV catheter with 3 mL of normal saline every 8 hours. 0607 (Not Administered - Provider: Aleksandra Gonzalez RN - Reason: Patient sleeping)1450 (Not Administered - Provider: Fozia Bain - Reason: IV Currently Infusing)2200 (Not Administered - Provider: Aleksandra Gonzalez RN - Reason: IV Currently Infusing) 0515 (Not Administered - Provider: Aleksandra Gonzalez RN - Reason: IV Currently Infusing)194 (Not Administered - Provider: Rachael Michele RN - Reason: See Comments - Comment: TR band in use in rt wrist)2105 (Not Administered - Provider: Aleksandra Gonzalez RN - Reason: See Comments) 0614 (Not Administered - Provider: Aleksandra Gonzalez RN - Reason: Patient sleeping)1306 ($ Given - Provider: Justo Royal RN) amLODIPine (Norvasc) tablet 10 mg 10 mg, Oral, DAILY, First dose on Thu12/10/21 at 1145, Until Discontinued 1302 ($ Given - Provider: Justo Royal RN) aspirin chew tablet 81 mg 81 mg, Oral, DAILY, First dose on Thu12/08/21 at 0900, Until Discontinued 0933 ($ Given - Provider: Fozia Bain) 0816 ($ Given - Provider: Rachael Michele, RN) 1057 ($ Given - Provider: Justo Royal RN) atorvastatin (Lipitor) tablet 80 mg 80 mg, Oral, AT BEDTIME, First dose on Thu12/07/21 at 2100, Until Discontinued 223 ($ Given - Provider: Aleksandra Gonzalez RN) 2055 ($ Given - Provider: Aleksandra Gonzalez RN) enoxaparin (Lovenox) injection 40 mg 40 mg, Subcutaneous, DAILY, First dose on Thu12/11/21 at 0900, Until Discontinued, (for prefilled syringes) do not expel air bubble from the syringe prior to the injection Remind Patient to not rub injection site. Could cause hematoma. lisinopril (Prinivil; Zestril) tablet 20 mg 20 mg, Oral, DAILY, First dose on Thu12/10/21 at 1145, Until Discontinued 1302 ($ Given - Provider: Justo Royal RN) metoprolol succinate XL 24hr (Toprol XL) tablet 25 mg 25 mg, Oral, DAILY, First dose on Thu12/07/21 at 1345, Until Discontinued, May cut in half but do not crush or chew 0934 ($ Given - Provider: Fozia Bain) 0816 ($ Given - Provider: Rachael Michele, ABRAHAM - Comment: HR 72) 1057 ($ Given - Provider: Justo Royal RN) pantoprazole EC (Protonix) tablet 40 mg 40 mg, Oral, DAILY, First dose on Thu12/07/21 at 2030, Until Discontinued, Do not crush, chew, or cut in half. 0934 ($ Given - Provider: Fozia Bain) 0816 ($ Given - Provider: Rachael Michele, RN) 1057 ($ Given - Provider: Justo Royal, RN) ticagrelor (Brilinta) tablet 90 mg 90 mg, Oral, 2 TIMES DAILY, First dose on 12/08/21 at 0900, Until Discontinued 0933 ($ Given - Provider: Fozia Bain)2231 ($ Given - Provider: Aleksandra Gonzalez RN) 0816 ($ Given - Provider: Rachael Michele, ABRAHAM)2056 ($ Given - Provider: Aleksandra Gonzalez RN) 105 ($ Given - Provider: Justo Royal, ABRAHAM) Continuous Medication Order 12/08/2021 12/09/2021 12/10/2021 heparin 100 units/mL in dextrose 5 % infusion (CANCELED) 500-2,150 Units/hr (5-21.5 mL/hr), Intravenous, CONTINUOUS, Starting on 12/07/21 at 1345, Until 12/09/21 at 1437, Initial rate 1000 units/hr APTT(sec) RATE CHANGE less than 59: bolus + increase by 350 units/hr, 59-68.9: bolus + increase by 200 units/hr, 69-110: NO CHANGE (therapeutic range), 110.1-121: decrease by 100 units/hr, 121.1-141: decrease by 200 units/hr, greater than 141: Hold heparin for 1 hour and reduce rate by 300 units/hr Draw aPTT 6 hours after infusion is initiated. Repeat aPTT 6 hours after any rate change or 6 hours after heparin is restarted. After two consecutive aPTTs drawn 6 hours apart are therapeutic, order aPTT to be drawn the following a.m. and daily and adjust per nomogram. Notify physician if 2 consecutive aPTT's are greater than 140 If heparin is interrupted for any reason other than described in the table, notify the physician. If heparin is to be restarted after an interruption of more than 4 hours, give 4000 units IV bolus and resume infusion at same rate as before the interruption. 0213 (Rate Change - Provider: Aleksandra Gonzalez RN)0934 ($ New Bag/Syringe - Provider: Fozia Bain)2232 (Rate Change - Provider: Aleksandra Gonzalez RN) 0503 ($ New Bag/Syringe - Provider: Aleksandra Gonzalez RN) PRN Medication Order 12/08/2021 12/09/2021 12/10/2021 0.9% NaCl infusion (COMPLETED) Intravenous, CONTINUOUS PRN, Starting on Thu12/09/21 at 1144, Until Thu12/09/21 at 1144 1144 ($ New Bag/Syringe - Provider: Elma Bermeo, ABRAHAM) 0.9% NaCl injection 1-10 mL(Linked Group 1) 1-10 mL, Intracatheter, PRN, Other, peripheral line flush, Starting on 12/07/21 at 1038, Until Thu12/10/21 at 1758, Flush peripheral IV catheter with 1-10 mL of normal saline before and after medications and prn to clear blood from the line or to verify patency. acetaminophen (Tylenol) tablet 325 mg 325 mg, Oral, EVERY 6 HOURS PRN, Mild Pain, Moderate Pain, Starting on Thu12/09/21 at 1601, Until Thu12/10/21 at 1758, Patient preference for lesser PRN pain meds may be honored when the patient requests a less strong medication, a lower dose, or a less intrusive route of administration when the lesser drug, dose and route have been ordered for the patient. This patient request must be documented in the MAR. 1658 ($ Given - Provider: Rachael Michele RN) 1057 ($ Given - Provider: Justo Royal RN) fentaNYL (PF) (Sublimaze) injection (COMPLETED) Intravenous, ONCE PRN, Starting on Thu12/09/21 at 1206, Until Thu12/09/21 at 1206 1206 ($ Given - Provider: Elma Bermeo RN) heparin 100 units/mL bolus from bag (CANCELED) 4,000-7,000 Units, Intravenous, BOLUS FROM BAG PRN, heparin bolus dose, Starting on 12/07/21 at 1308, Until Thu12/09/21 at 1437, APTT(sec) Bolus less than 59: 7000 unit bolus + rate Increase, 59-68.9: 4000 unit bolus + rate Increase, 69-110: NO CHANGE (therapeutic range), 110.1-121: No Bolus + rate Decrease, 121.1-141: No Bolus + rate Decrease. greater than 141: No Bolus + hold infusion and rate Decrease Draw aPTT 6 hours after infusion is initiated. Repeat aPTT 6 hours after any rate change or 6 hours after heparin is restarted. After two consecutive aPTTs drawn 6 hours apart are therapeutic, order aPTT to be drawn the following a.m. and daily and adjust per nomogram. Notify physician if 2 consecutive aPTT's are greater than 140 If heparin is interrupted for any reason other than described in the table, notify the physician. If heparin is to be restarted after an interruption of more than 4 hours, give 4000 units IV bolus and resume infusion at same rate as before the interruption. 2235 (Bolus From Bag - Provider: Aleksandra Gonzalez, RN) heparin injection (COMPLETED) Intravenous, ONCE PRN, Starting on Thu12/09/21 at 1210, Until Thu12/09/21 at 1228 1210 ($ Given - Provider: Mariella Little MD)1228 ($ Given - Provider: Melodie Turner, ABRAHAM) heparinized saline 2 units/ml infusion (COMPLETED) Intravenous, CONTINUOUS PRN, Starting on Thu12/09/21 at 1153, Until Thu12/09/21 at 1153 1153 ($ New Bag/Syringe - Provider: Olman Matthews MD - Comment: to table) iopamidol (Isovue 370) 76 % contrast (COMPLETED) Intravenous, ONCE PRN, Starting on Thu12/09/21 at 1250, Until Thu12/09/21 at 1250 1250 ($ Given - Provider: Mariella Little MD) lidocaine PF (Xylocaine MPF) 1 % injection (COMPLETED) Infiltration, ONCE PRN, Starting on Thu12/09/21 at 1207, Until Thu12/09/21 at 1207 1207 ($ Given - Provider: Mariella Little MD - Comment: r rwrist) midazolam (Versed) injection (COMPLETED) Intravenous, ONCE PRN, Starting on Thu12/09/21 at 1206, Until Thu12/09/21 at 1206 1206 ($ Given - Provider: Elma Bermeo RN) nitroGLYCERIN (Nitrostat) tablet 0.4 mg 0.4 mg, Sublingual, EVERY 5 MIN PRN, Angina, Chest pain, 3 doses, Starting on 12/07/21 at 1038, Until Thu12/10/21 at 1758, Notify physician after 3 doses if chest pain not relieved. Linked Groups Order Group 1: SALINE LOCK, INSERT AND MAINTAIN (CANCELED) Routine, CONTINUOUS, Starting on 12/07/21 at 1045, Until Specified, New collection And 0.9% NaCl injection 3 mLJump to med 3 mL, Intracatheter, EVERY 8 HOURS, First dose on 12/07/21 at 1400, Until Discontinued, Flush peripheral IV catheter with 3 mL of normal saline every 8 hours. And 0.9% NaCl injection 1-10 mLJump to med 1-10 mL, Intracatheter, PRN, Other, peripheral line flush, Starting on 12/07/21 at 1038, Until Thu12/10/21 at 1758, Flush peripheral IV catheter with 1-10 mL of normal saline before and after medications and prn to clear blood from the line or to verify patency. documented in this encounter
--- OUTSIDE RECORDS SUMMARY | 2024-09-11 14:02 | XMS_ITS | Encounter Summary ---
Author Organization [facility] Address [address] [place] [address] Care Team Providers Care Disability Representative Name Role Phone Unavailable Primary Care Provider Unavailabl e Encounter Details Date Type Department Care Team (Late st Contact Info) Description 08/09/2015 Emergency Department Historic [facility] EMERGENCY DEPARTMENT [address] [place], [place] [id number] Meg Gunter MD [address] [place] [phone] Discharge Disposition: Home or Self Care Social History Tobacco Use Types Packs/Day Years Used Date Smoking Tobacco: Never Assessed Sex and Gender Information Value Date Recorded Sex Assigned at Not on file Gender Identity Not on file Sexual Orientation Not on file documented as of this encounter Last Filed Vital Signs Vital Sign Reading Time Taken Comments Blood Pressure 160/108 08/09/2015 10:00 AM DRAWER IN Pulse 83 08/09/2015 10:56 AM DRAWER IN Temperature - - Respiratory Rate 20 08/09/2015 10:00 AM DRAWER IN Oxygen Saturation 98% 08/09/2015 10:56 AM DRAWER IN Inhaled Oxygen Concentration - - Weight 97.5 kg (215 lb) 08/09/2015 10:00 AM DRAWER IN Height 157.5 cm (5' 2 ) 08/09/2015 10:00 AM DRAWER IN Body Mass Index 39.32 08/09/2015 10:00 AM DRAWER IN documented in this encounter Plan of Treatment Not on file documented as of this encounter Visit Diagnoses Diagnosis Other headache syndrome Cervicalgia documented in this encounter
--- OUTSIDE RECORDS SUMMARY | 2024-09-11 14:02 | XMS_ITS | Encounter Summary ---
Author Organization [facility] Address [address] [place] [address] Care Team Providers Care Grain Drier Operator Name Role Phone Unavailable Primary Care Provider Unavailabl e Encounter Details Date Type Department Care Team (Late st Contact Info) Description 08/15/2015 Hospital Outpatient Visit [facility] - Orthopedics [address] [place] [address], [place] [phone] Scott Quinn MD [address] [place] [address] [place] [address] Discharge Disposition: Home or Self Care Social History Tobacco Use Types Packs/Day Years Used Date Smoking Tobacco: Never Assessed Sex and Gender Information Value Date Recorded Sex Assigned at Not on file Gender Identity Not on file Sexual Orientation Not on file documented as of this encounter Plan of Treatment Not on file documented as of this encounter Procedures Procedure Name Priority Date/Time Associated Diagnosis Comments XR CERVICAL SPINE 2 OR 3VW Routine 08/15/2015 1:22 PM WASTE TREATMENT OPERATOR documented in this encounter Results * XR CERVICAL SPINE 2 OR 3VW (08/15/2015 1:22 PM WASTE TREATMENT OPERATOR) Anatomical Region Laterality Modality Spine Other Impressions 08/15/2015 5:09 PM WASTE TREATMENT OPERATOR Impression: Known C7 fracture, not well-visualized on this examination. Minimal unchanged anterolisthesis of C6 on C7. Report dictated by Matthew Mccann M.D., MPH (resident). This report was approved ??by Matthew Mccann M.D. ?? on 08/15/2015 4:11 PM . I, Dr. RADHA BRYANT M.D. have personally reviewed and interpreted this examination/study. This report was electronically signed by RADHA BRYANT M.D. ??on 08/15/2015 5:09 PM . Narrative 08/15/2015 5:09 PM WASTE TREATMENT OPERATOR Exam: Cervical spine, 4 views Date: 08/15/2015 [...] no prevertebral soft tissue swelling. Procedure Note Radha Bryant MD - 12/12/2017 Exam: Cervical spine, [...] Matthew Mccann M.D. on 08/15/20154:[address] RADHA Parsons M.D. have personally reviewed and interpreted thisexamination/study. This report was electronically signed by RADHA BRYANT M.D. on08/15/2015 5:09 PM . Scott Quinn MD DIAGNOSTIC IMAGING O RDERAMANAS documented in this encounter Visit Diagnoses Diagnosis Encounter for follow-up examination after completed treatment for conditions other than malignant neoplasm documented in this encounter
--- OUTSIDE RECORDS SUMMARY | 2024-09-11 14:02 | XMS_ITS | Encounter Summary ---
Author Organization [facility] Address [address] [place] [address] Care Team Providers Care Ticketing Agent Name Role Phone Unavailable Primary Care Provider Unavailabl e Encounter Details Date Type Department Care Team (Late st Contact Info) Description 07/18/2015 Hospital Outpatient Visit [facility] Physician Group - Orthopedics [address] [place] [address], [place] [phone] Scott Quinn MD [address] [place] [address] [place] [phone] Discharge Disposition: Home or Self [...] XR CERVICAL SPINE 2 OR 3VW Routine 07/18/2015 4:16 PM CENTRAL SERVICE TECHNICIAN documented in this encounter Results * XR CERVICAL SPINE 2 OR 3VW (07/18/2015 4:16 PM CENTRAL SERVICE TECHNICIAN) Anatomical Region Laterality Modality Spine Other Impressions 07/19/2015 9:22 AM CENTRAL SERVICE TECHNICIAN Impression: 1. Known C7 fracture, not well-visualized on this examination. Report dictated by Matthew Sandoval M.D. (microarray operations vice president). Dr. JACKY Parsons MD have personally reviewed and interpreted this examination/study. This report was electronically signed by JACKY DARLING MD ??on 07/19/2015 9:22 AM . Narrative 07/19/2015 9:22 AM CENTRAL SERVICE TECHNICIAN Exam: ??XR SPINE CERVICAL 2 OR 3 VIEWS Date: 07/18/2015 4:16 PM History: ??follow up, C7 fracture Comparison: Comparison is made with prior cervical spine radiographs and CT dated 07/10/2015 Findings: C7 is not well-visualized on the lateral view. There is straightening of normal cervical lordosis. Vertebral body heights and intervertebral disc spaces are maintained. The mildly comminuted right C7 superior articular process fracture extending into the C6-7 facet joint and right C7 transverse process seen on the prior CT is not well-visualized on this examination. No new fracture is identified. No prevertebral soft tissue swelling is seen. Procedure Note Jacky Darling MD - 12/12/2017 Exam: XR SPINE CERVICAL 2 OR 3 VIEWS Date: 07/18/2015 4:16 PM History: follow up, C7 fracture Comparison: Comparison is made with prior cervical spine radiographs andCT dated 07/10/2015 Findings: C7 is not well-visualized on the lateral view. There is straightening ofnormal cervical lordosis. Vertebral body heights and intervertebral discspaces are maintained. The mildly comminuted right C7 superior articularprocess fracture extending into the C6-7 facet joint and right C7 transverse process seen on the prior CT isnot well-visualized on this examination. No new fracture is identified. Noprevertebral soft tissue swelling is seen. IMPRESSION Impression: 1. Known C7 fracture, not well-visualized on this examination. Report dictated by Matthew Sandoval M.D. (microarray operations vice president). Dr. JACKY Parsons MD have personally reviewed and interpreted thisexamination/study. This report was electronically signed by JACKY DARLING MD on 07/19/20159:22 AM . Scott Quinn MD DIAGNOSTIC IMAGING O RDERABLES documented in this encounter Visit Diagnoses Diagnosis Encounter for follow-up examination after completed treatment for conditions other than malignant neoplasm documented in this encounter
--- OUTSIDE RECORDS SUMMARY | 2024-09-11 14:02 | XMS_ITS | Encounter Summary ---
Author Organization [facility] Address [address] [place] [address] Care Team Providers Care House Decorator Name Role Phone Unavailable Primary Care Provider Unavailabl e Encounter Details Date Type Department Care Team (Late st Contact Info) Description 09/12/2015 Hospital Outpatient Visit Historic [facility] DIAGNOSTIC RAD [facility] [address] [facility] [phone] Scott Quinn MD [facility] [facility] [place] [address] Discharge Disposition: Home or Self [...] Date/Time Associated Diagnosis Comments XR CERVICAL SPINE 4 OR 5VW Routine 09/12/2015 1:08 PM CHOCOLATE PRODUCTION MACHINE OPERATOR documented in this encounter Results * XR CERVICAL SPINE 4 OR 5VW (09/12/2015 1:08 PM CHOCOLATE PRODUCTION MACHINE OPERATOR) Anatomical Region Laterality Modality Spine Other Impressions 09/12/2015 4:45 PM CHOCOLATE PRODUCTION MACHINE OPERATOR Impression: Alignment of C7 on T1 is poorly seen, but appears normal. Known C7 fractures are not well seen. Report dictated by Mihir Borja MD (resident). This report was approved ??by Mihir Borja ?? on 09/12/2015 1:52 PM . Issa, Dr. RADHA BRYANT M.D. have personally reviewed and interpreted this examination/study. This report was electronically signed by RADHA BRYANT M.D. ??on 09/12/2015 4:45 PM . Narrative 09/12/2015 4:45 PM CHOCOLATE PRODUCTION MACHINE OPERATOR Exam: XR SPINE CERVICAL 4 VW MIN [...] intervertebral disc spaces are normal. Procedure Note Radha Bryant MD - 12/12/2017 Exam: XR SPINE [...] is poorly seen, but appears normal. Known [id number] are not well seen. Report dictated by Mihir Borja MD (resident). This report was approved by Mihir Borja on 09/12/2015 1:52 PM . I, Dr. RADHA B CLAUDIA, M.D. have personally reviewed and interpreted thisexamination/study. This report was electronically signed by RADHA BRYANT M.D. on09/12/2015 4:45 PM . Scott Quinn MD DIAGNOSTIC IMAGING O RDERABLES documented in this encounter Visit Diagnoses Diagnosis Encounter for follow-up examination after completed treatment for conditions other than malignant neoplasm documented in this encounter
--- OUTSIDE RECORDS SUMMARY | 2024-09-11 14:02 | XMS_ITS | Encounter Summary ---
Author Organization [facility] Address [address] [place] [address] Care Team Providers Care Medical Record Administrator Name Role Phone Unavailable Primary Care Provider Unavailabl e Encounter Details Date Type Department Care Team (Latest Contact Info) Description 08/25/2015 Emergency Department Historic [facility] EMERGENCY DEPARTMENT [address] [place] [id number] Woodrow Martinez MD [address] [facility] EMERGENCY DEPT [place], [place] [id number] Discharge Disposition: Home or Self Care Social History Tobacco Use Types Packs/Day Years Used Date Smoking Tobacco: Never Assessed Sex and Gender Information Value Date Recorded Sex Assigned at Not on file Gender Identity Not on file Sexual Orientation Not on file documented as of this encounter Last Filed Vital Signs Vital Sign Reading Time Taken Comments Blood Pressure 131/86 08/25/2015 2:45 PM LOZENGE DOUGH MIXER Pulse 100 08/25/2015 2:45 PM LOZENGE DOUGH MIXER Temperature - - Respiratory Rate 16 08/25/2015 11:11 AM LOZENGE DOUGH MIXER Oxygen Saturation 97% 08/25/2015 2:45 PM LOZENGE DOUGH MIXER Inhaled Oxygen Concentration - - Weight - - Height 167.6 cm (5' 6 ) 08/25/2015 11:11 AM LOZENGE DOUGH MIXER Body Mass Index - - documented in this encounter Consult Notes * Kanu Lynch MD - 08/25/2015 3:25 PM CST Consults Signed by Kanu Lynch MD on 08/25/2015 3:42 PM Author: Kanu Lynch MD Service: (none) Author Type: Resident Date of Service: 08/25/2015 3:25 PM Filed: 08/25/2015 3:42 PM Note Type: Consults Status: Signed Abstract Searcher: Kanu Lynch MD (Resident) Cosigner: Manish Virk MD at 08/30/2015 4:37 PM [facility] Orthopaedic Spine Consult Michael Ricci 49 y.o. male NOTE: this patient's MRN is actually [id number] and this note should be merged with that record. August 25, 2015 Chief Complaint: patient presents with knee pain. HPI: History is obtained from the patient Patient is a 49 y.o. male presents several weeks after known cervical spine fracture (C7 lateral mass/facet fracture on the right) with residual R triceps weakness (4/5 strength) as only known current deficit. Upon further questioning he comes in to the ER today because of history of left knee painfor several days. For the cervical spine he has been treated with immobilization in a rigid collar.He has no complaints of new neck pain, falls, change in his strength or sensation. Mr. Bravo Ricci states that he does not have bowel/bladder symptoms of retention or loss of function. Medical, surgical and allergic history reviewed with patient and in the correct medical chart. PMHx: History reviewed. No pertinent past medical history. PSHx: No past surgical history on file. Social Hx: History Substance Use Topics ??? Smoking status: Never Smoker ??? Smokeless tobacco: Never Used ??? Alcohol Use: No Family Hx: family history is not on file. Allergies: No Known Allergies Medications: No current facility-administered medications for this encounter. No current outpatient prescriptions on file. Review of Systems: Pertinent items are noted in HPI. Vitals: BP 131/86 Pulse 100 Resp 16 Ht 5' 6 (1.676 m) SpO2 97% Physical Exam: General appearance: alert, no distress, cooperative Neck: C-collar/[place] J: present, Tenderness to palpation: mild at the base, paracervical, ROM: not assessed Back: Tenderness to palpation: absent, ROM: full range of motion. There are not any appreciated step-offs. Rectal/Perineal: not assessed Right Upper Extremity: Motor: 5/5 protection analyst, 5/5 small finger abduction, 5/5 wrist extension, 5/5 wrist flexion, 5/5 biceps, 4/5 Triceps function, 5/5 deltoid function. Sensory: intact to light touch. Boswell's sign is negative. Reflexes: Biceps: Normal Triceps: Normal BR: Normal Left Upper Extremity: Motor: 5/5 protection analyst, 5/5 small finger abduction, 5/5 wrist extension, 5/5 wrist flexion, 5/5 biceps, 5/5 Triceps function, 5/5 deltoid function. Sensory: intact to light touch. Boswell's sign is negative. Reflexes: Biceps: Normal Triceps: Normal BR: Normal Bilateral Lower Extremity: Motor: intact EHL/AT/GSC/Quad/Hamstrings/Hip flexors. 5/5 EHL, 5/5 AT, 5/5 GSC, 5/5 Quad, 5/5 Hamstring, 5/5 Hip flexors. Sensation: intact to light touch distally Clonus: absent no beats Reflexes: Knee Jerk: Normal Achilles: Normal On the left knee he has prepatellar swelling, with no effusion of the knee noted. Has full range ofmotion of the knee without limitation. No warmth, erythema, no point tenderness. Stable to varus/valgus/anterior/posterior testing in extension and 30 flexion with good solid endpoints. Intact extensor mechanism. Imaging: plain films of the knee are reviewed and show no acute abnormality. CT scan of the cervical spine shows good alignment maintained since prior CT imaging, known fracture with some interval healing however does not appear complete. Labs: No results found for this basename: WBC, HGB, HCT, MCV, PLT No results found for this basename: INR, PT Assesment and Plan: 49 y.o. male with cervical spine fracture, C7 right lateral mass/facet, presenting to the ER with left knee pain 1. Discussed with spine chief resident. 2. To keep appointment with Dr Quinn in 4 weeks 3. Maintain cervical collar until that time Kanu Lynch MD 08/25/2015 3:25 PM NGE DOUGH MIXER documented in this encounter Plan of Treatment Not on file documented as of this encounter Procedures Procedure Name Priority Date/Time Associated Diagnosis Comments CT CERVICAL SPINE WO CONTRAST STAT 08/25/2015 12:[address] [address] HEAD WO CONTRAST STAT 08/25/2015 1 2:47 PM [employer] D[employer] MIXER XR CHEST 2VW STAT 08/25/2015 12:08 PM [employer] D[employer] M[employer]ER XR KNEE LEFT 4VW OR MORE STAT 08/25/2015 12:00 PM [employer]ENGE D[employer] MIXER documented in this encounter Results * CT HEAD WO CONTRAST (08/25/2015 12:47 PM LOZENGE DOUGH MIXER) Anatomical Region Laterality Modality Head Other Impressions 08/26/2015 10:23 AM LOZENGE DOUGH MIXER IMPRESSION: 1. No acute intracranial process. 2. [...] 10:23 AM . Narrative 08/26/2015 10:23 AM LOZENGE DOUGH MIXER EXAMINATION: 1. Computed tomography (CT) of the [...] Woodrow Martinez MD CT ORDERABLES * CT CERVICAL SPINE WO CONTRAST (08/25/2015 12:47 PM LOZENGE DOUGH MIXER) Anatomical Region Laterality Modality Spine Other Impressions 08/26/2015 10:23 AM LOZENGE DOUGH MIXER IMPRESSION: 1. No acute intracranial process. 2. [...] 10:23 AM . Narrative 08/26/2015 10:23 AM LOZENGE DOUGH MIXER EXAMINATION: 1. Computed tomography (CT) of the [...] . Woodrow Martinez MD CT ORDERABLES * XR CHEST 2VW (08/25/2015 12:08 PM LOZENGE DOUGH MIXER) Anatomical Region Laterality Modality Chest Other Impressions 08/25/2015 3:59 PM LOZENGE DOUGH MIXER Impression: No active pulmonary disease. Report dictated by Mihir Borja MD (resident). Dr. TAYLOR Parsons M.D. have personally reviewed and interpreted this examination/study. This report was electronically signed by TAYLOR FLORES M.D. ??on 08/25/2015 3:59 PM . Narrative 08/25/2015 3:59 PM [employer]ENGE DOUGH MIXER Exam: XR CHEST PA AND LATERAL Exam Date: 08/25/2015 12:08 PM History: Chest Pain Comparison: No prior study is available for comparison. Findings: There is no consolidation, pleural effusion or pneumothorax. The cardiac and mediastinal silhouettes are normal. The visible bony thorax is intact. Procedure Note Taylor Flores MD - 12/12/2017 Exam: XR CHEST PA AND LATERAL Exam Date: 08/25/2015 12:08 PM History: Chest Pain Comparison: No prior study is available for comparison. Findings: There is no consolidation, pleural effusion or pneumothorax. The cardiacand mediastinal silhouettes are normal. The visible bony thorax isintact. IMPRESSION Impression: No active pulmonary disease. Report dictated by Mihir Borja MD (resident). Dr. TAYLOR Parsons M.D. have personally reviewed and interpreted thisexamination/study. This report was electronically signed by TAYLOR FLORES M.D. on08/25/2015 3:59 PM . Woodrow Martinez MD DIAGNOSTIC IMAGING O RDERABLES * XR KNEE LEFT 4VW OR MORE (08/25/2015 12:00 PM LOZENGE DOUGH MIXER) Anatomical Region Laterality Modality Lower Extremity Other Impressions 08/25/2015 4:01 PM [employer]EN[employer] DOUGH MIXER IMPRESSION: No acute osseous injury. Small knee joint effusion. Mild prepatellar soft tissue swelling. Report dictated by Mihir Borja MD (resident). Dr. TAYLOR Parsons M.D. have personally reviewed and interpreted this examination/study. This report was electronically signed by TAYLOR FLORES M.D. ??on 08/25/2015 4:01 PM . Narrative 08/25/2015 4:01 PM LOZENGE DOUGH MIXER EXAM: XR KNEE LEFT 4+ VW HISTORY: LEFT KNEE SWELLING COMPARISON: None available FINDINGS: The osseous structures are intact and well aligned without acute fracture or dislocation. The joint spaces are preserved. There is a small knee joint effusion. Bone density and texture are normal. There is mild prepatellar soft tissue swelling. Procedure Note Taylor Flores MD - 12/12/2017 EXAM: XR KNEE LEFT [...] Report dictated by Mihir Borja MD (resident). I, Dr. TAYLOR FLORES M.D. have personally reviewed and interpreted thisexamination/study. This report was electronically signed by TAYLOR FLORES M.D. on08/25/2015 4:01 PM . Woodrow Martinez MD DIAGNOSTIC IMAGING O RDERABLES documented in this encounter Visit Diagnoses Diagnosis Bursopathy Unspecified disorder of synovium, tendon, and bursa documented in this encounter
--- OUTSIDE RECORDS SUMMARY | 2024-09-11 14:02 | XMS_ITS | Encounter Summary ---
Author Organization [facility] Address [address] [place] [address] Care Team Providers Care Carpet Installer Helper Name Role Phone Unavailable Primary Care Provider Unavailabl e Encounter Details Date Type Department Care Team (Late st Contact Info) Description 06/29/2013 Emergency Department Historic [facility] EMERGENCY DEPARTMENT [address] [place] [phone] Robert Gunter Update Information Discharge Disposition: Home or Self Care Social History Tobacco Use Types Packs/Day Years Used Date Smoking Tobacco: Never Assessed Sex and Gender Information Value Date Recorded Sex Assigned at Not on file Gender Identity Not on file Sexual Orientation Not on file documented as of this encounter Last Filed Vital Signs Vital Sign Reading Time Taken Comments Blood Pressure 147/90 06/29/2013 11:42 AM CDT Pulse 73 06/29/2013 11:42 AM CDT Temperature 36.7 ??C (98.1 ??F) 06/29/2013 11:42 AM C DT Respiratory Rate 16 06/29/2013 11:42 AM CDT Oxygen Saturation 100% 06/29/2013 11:42 AM CDT Inhaled Oxygen Concentration - - Weight - - Height - - Body Mass Index - - documented in this encounter Plan of Treatment Not on file documented as of this encounter Visit Diagnoses Diagnosis Backache Backache, unspecified documented in this encounter
--- OUTSIDE RECORDS SUMMARY | 2024-09-11 14:03 | XMS_ITS | Continuity of Care Document ---
Author Organization [facility] Address [address] [place] [address] Phone Care Team Providers Care Artistic Associate Name Role Phone Aurora Chapa MD Unavailable Unavailable Allergies, Adverse Reactions, Alerts Substance Reaction Status Criticality No Known Allergies Active No Inform ation Medications Medication Instructions Dosage Effective Dates (start - stop) Status Comments ranitidine 150 mg tablet take 1 tablet by oral route 2 times every day - Active Procedures Procedure Date OFFICE/OUTPATIENT VISIT, [facility] INFLUENZA VACCINE, AGE 4-18 YRS 017 Advance Directives Directive Yes / No Effective Date File Name No Information Encounters Encounter Description Practice Location Reason(s) For Visit Diagnoses Date Provider Providers Copied on Encounter OFFICE/OUTPA TIENT VISIT, [facility] [address], [place], [place], [id number] , tel: [phone] Rafael On C[place]olla multiple issues (chief complaint) ConstipationMorbid (severe) obesity due to excess caloriesGastro-esopha geal reflux disease without esophagitisLumbagoEnc ounter for general adult medical examination without abnormal findings Eduard Simon. [address], [place], [place], [id number] , [place]. tel:[phone] Family History Family Member Type Diagnosis Age At Onset No Information Immunizations Vaccine Date Status Comments 4 years and older, trivalent administered Source: New Immunization Record Payers Payer name Insurance type Covered green party ID Authoriza tion(s) No Information Social History Type Description Quantity Date Captured Comments Alcohol Use Details Unknown Caffeine Use Details Unknown Tobacco Use Status Never smoked tobacco 2016 Smoking Status Never smoker Non-Smoking Tobacco Use Details : No Details Available : No Details Available Sex Male Vital Signs Date / Time: Height Weight BMI Pulse Rate Blood Pressure Temperature Respiratory Rate Body Surface Area Head Circumference Head Circ. Percentile Wt./Jacinto. Percentile BMI percentile Pulse Ox Inhaled Ox 4:06 PM 69.29 in 99.881 kg (220.20 lbs) 32.2 4 kg/m eter (2) 85 /min 130/86 mm[Hg] 97.20 F 20 /min Chief Complaint And Reason For Visit From encounter dated '07/28/2017 15:30'. multiple issues (chief complaint). Description: Today's interview and exam was conducted with the assistance of an vehicle technician. Pt was a patient at [facility] a long time ago but no care since then.Wants the following issues addressed:1)Says he needs colon checkup , says he has 'two cysts . Never had previous colonoscopy.2)Says that he has heart problems because he hasblood pressure that goes up and down. Says that this is based upon his [place] exam in the past3) Chest pain that is burning in quality, can't identify any triggers such as exercise or meals.4)headachesMedicines:nothing but tylenolNKDA: TOBACCO: neverDIET:b)bread, coffeel)meat potatotesd)[place], fried eggs Reason For Referral Reason For Referral No Information Plan Of Treatment Date Type Action Status Future Order: Radiology Order L- Spine; Complete (4-5) (16975), Ordered on: Ordered Future Order: Lab Order CBC (Inc ludes DIFF/PLT) (OC67), Ordered on: Ordered Future Order: Lab Order Comprehe nsive Metabolic Panel (OC71), Ordered on: Ordered Future Order: Lab Order POC Hemo globin A1C (OC45), Ordered on: Ordered Future Order: Lab Order TSH with Reflex to Free T4 (OC58), Ordered on: Ordered Future Order: Lab Order Urinalys is, Macroscopic (OC80), Ordered on: Ordered Future Order: Lab Order Urinalys is, Microscopic (OC81), Ordered on: Ordered Future Order: Lab Order Hepatiti s C Antibody (Diagnosis) (OC57), Ordered on: Ordered Future Order: Lab Order Fecal Gl obin by Immunochemistry (InSure(R)) () ([id number]), Ordered on: Ordered Future Order: Lab Order Fecal Oc cult Blood Test (OC114), Ordered on: Ordered History Of Present Illness Encounter Date Complaint History Of Prese nt Illness multiple issues Today's intervie w and exam was conducted with the assistance of an vehicle technician. Pt was a patient at [facility] a long time ago but no care since then.Wants the following issues addressed:1)Says he needs colon checkup , says he has ' two cysts . Never had previous colonoscopy.2)Says that he has heart problems because he has blood pressure that goes up and down. Says that this is based upon his [place] exam in the past3) Chest pain that is burning in quality, can't identify any triggers such as exercise or meals.4)headachesMedicines:nothing but tylenolNKDA: TOBACCO: neverDIET:b)bread, coffeel)meat potatotesd)[place], fried eggs Functional Status Date Functional Assessmen t Pain Score 8/10 Instructions Date Instruction Additional Infor augustin --Avoid foods that c ause problems--Do not lie down sooner than 3 hours after eating--Take medicine as prescribed Related to Gastro-esophageal reflux disease without esophagitis --Make appointment w [facility] --Ask about Medicaid or [place] to Better Health--Blood test today Related to Encounter for general adult medical examination without abnormal findings xrays today Related to Lumba go --Exercise every day --Make good choices Related to Morbid (severe) obesity due to excess calories Assessments Type Assessment Date assessment Constipation assessment Morbid (severe) obesity due to e xcess calories assessment Gastro-esophageal reflux disease without esophagitis assessment Lumbago assessment Encounter for genera l adult medical examination without abnormal findings Mental Status Date Cognitive Assessment Orientation - [place] ed to time, place, person, situation. Patient Care Teams Name Effective Dates (start - stop) Status Members No Information
== END 2024-09-04 12:48 | disposition home or self-care (01) ==
PROVIDERS: Emergency Provider Student in an Organized Health Care Education/Training Program
DX: M19.071 Primary osteoarthritis, right ankle and foot (principal); M10.9 Gout, unspecified; I10 Essential (primary) hypertension; I25.10 Atherosclerotic heart disease of native coronary artery without angina pectoris; E78.5 Hyperlipidemia, unspecified
CPT/HCPCS: 73620; 96372; 99283; A9270; J1885; J7512